=== PATIENT | male | born 1980 | race American Indian/Alaskan Native ===

== ENCOUNTER 2017-07-17 00:09 | Emergency (ER) | payer MEDICAID, OTHER ==
[2017-07-17 01:07] VITALS: BP 128/90
[2017-07-17] MEDS ORDERED: PERCOCET 5/325 PO ONE (02:58)
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
--- NOTE | 2017-07-17 04:09 | XRay Report ---
FINAL REPORT EXAM: XR SPINE CERVICAL 2-3V HISTORY: NECK PAIN TECHNIQUE: Three views of the cervical spine were obtained. FINDINGS: There is multilevel disc degeneration in the cervical spine particular the C5-C6 level with endplate spurring. The alignment appears normal. There is straightening of the usual cervical lordosis secondary to patient positioning versus spasm. The soft tissues reveal a normal-appearing epiglottis and subglottic airway. Hypopharynx appears normal. There is no evidence of radiopaque foreign body. C1-C2 articulation appears intact IMPRESSION: Multilevel disc degeneration with spurring. No acute injury. Unremarkable soft tissues of the neck.
--- NOTE | 2017-07-17 04:10 | XRay Report ---
FINAL REPORT EXAM: XR G-TUBE STUDY HISTORY: ABD PAIN AROUND G TUBE TECHNIQUE: A preliminary AP radiograph was obtained of the abdomen. A 2nd film was obtained after injection of small amount of oral contrast through the G-tube. FINDINGS: The bowel gas pattern is unremarkable. Injection of contrast through the G-tube shows normal opacification of the stomach. There is no extravasation of contrast. The tube is in proper position in the body of the stomach. IMPRESSION: G-tube in proper position in the stomach. No extravasation of contrast.
== END 2017-07-17 05:18 | disposition home or self-care (01) ==
LOC: ED 00:09
DX: S16.1XXA Strain of muscle, fascia and tendon at neck level, initial encounter (principal); R10.32 Left lower quadrant pain; K21.9 Gastro-esophageal reflux disease without esophagitis; V49.49XA Driver injured in collision with other motor vehicles in traffic accident, initial encounter; Y93.89 Activity, other specified; Y92.89 Other specified places as the place of occurrence of the external cause; Y99.8 Other external cause status
CPT/HCPCS: 72040; 74000; 99284; Q9963

== ENCOUNTER 2017-11-11 03:06 | Emergency (ER) | payer MEDICAID ==
[2017-11-11 03:55] VITALS: BP 129/87
== END 2017-11-11 04:45 | disposition left against medical advice (07) ==
LOC: ED 03:06
DX: K94.29 Other complications of gastrostomy (principal); Z53.21 Procedure and treatment not carried out due to patient leaving prior to being seen by health care provider

== ENCOUNTER 2018-03-11 01:12 | Emergency (ER) | payer OTHER, MEDICAID ==
[2018-03-11 01:18] VITALS: BP 129/83
== END 2018-03-11 04:55 | disposition left against medical advice (07) ==
LOC: ED 01:12
DX: R10.9 Unspecified abdominal pain (principal); Z53.21 Procedure and treatment not carried out due to patient leaving prior to being seen by health care provider

== ENCOUNTER 2018-09-12 14:18 | Emergency (ER) | payer MEDICAID ==
[2018-09-12 15:14] LABS: Hematocrit 40.5 % (35.5-45.6); Hemoglobin 13.6 gm/dl (11.8-15.2); Mean Corpuscular HGB Conc 34 % (32-34); Mean Corpuscular Volume 92 fl (84-94); Platelet Count 184 K/mm3 (140-440); Red Blood Count 4.42 M/mm3 (3.65-5.03); Red Cell Distribution Width 14.9 % (13.2-15.2)
[2018-09-12 16:53] LABS: BUN/Creatinine Ratio TNR; Blood Urea Nitrogen TNR mg/dL (9-20)
[2018-09-12 16:55] LABS: Basophils % (Manual) 0 % (0.0-1.8); Eosinophils % (Manual) 0 % (0.0-4.3); Total Cells Counted 100
[2018-09-12 16:56] LABS: Anisocytosis 1+; Platelet Estimate Consistent w Auto
[2018-09-12 17:00] LABS: Calcium TNR mg/dL (8.4-10.2)
[2018-09-12 17:01] LABS: Alanine Aminotransferase TNR units/L (7-56); Albumin TNR g/dL (3.9-5); Hemolysis Index TNR
[2018-09-12 18:05] LABS: Alanine Aminotransferase 23 units/L (7-56); Albumin 3.7 g/dL (3.9-5); BUN/Creatinine Ratio 6; Blood Urea Nitrogen 9 mg/dL (9-20); Calcium 9.1 mg/dL (8.4-10.2); Hemolysis Index 23
--- NOTE | 2018-09-12 20:40 | Emergency Department Report ---
ED General Adult HPI - General Chief complaint: Weakness Stated complaint: PEG TUBE INFECTION/CHEST PAIN Time Seen by Provider: 09/12/18 20:20 Source: patient Mode of arrival: Ambulatory Limitations: No Limitations - History of Present Illness Initial comments: 37 year old male with a past medical history of AIDS, hepatitis C, oral and esophageal candidiasis, endocarditis, and PEG tube presents with possible complaints of possible PEG tube infection. For the last 3 days patient has had purulent and bloody drainage from PEG tube site with surrounding pain. Patient was a fever of 101 several days ago. Patient states he has had more diarrhea for the past week. Pt also has thrush which is worse than normal. Patient is known to have full-blown AIDS. He is currently under the care of infectious disease doctor Dr. Kwon. He has been off of antiretrovirals for several months due to polydrug resistance. Dr. Kwon is planning to restart a new regimen. Patient states he has a PEG tube to because he has history of recurrent esophageal strictures. Currently he is able to tolerate a pure diet by mouth and uses the PEg tube to administer his liquid medications. She also complains of some generalized chest pain. - Related Data Home Medications Medication Instructions Recorded Confirmed Last Taken Dolutegravir Sodium [Tivicay] 800 mg PO QDAY 05/22/16 07/02/16 07/02/16 Micafungin [Mycamine] 100 mg IV QDAY 05/22/16 07/02/16 07/02/16 Previous Rx's Medication Instructions Recorded Last Taken Type ALBUTEROL Inhaler (OR & NICU) 2 puff IH QID PRN #1 inhalation 05/22/16 Unknown Rx [ProAir HFA Inhaler] Ibuprofen [Motrin] 800 mg PO Q8HR PRN #30 tablet 07/17/17 Unknown Rx oxyCODONE /ACETAMINOPHEN [Percocet 1 tab PO Q6HR PRN #10 tablet 07/17/17 Unknown Rx 5/325] Itraconazole [Onmel] 200 mg PO QDAY #14 tab 09/13/18 Unknown Rx Sulfamethoxazole/Trimethoprim 1 each PO BID #20 tablet 09/13/18 Unknown Rx [Bactrim DS TAB] traMADol [Ultram 50 MG tab] 50 mg PO Q6HR PRN #20 tablet 09/13/18 Unknown Rx traZODone [Desyrel] 100 mg PO QHS #20 tablet 09/13/18 Unknown Rx Allergies Allergy/AdvReac Type Severity Reaction Status Date / Time latex Allergy Itching Verified 08/07/15 12:37 ED Review of Systems ROS: Stated complaint: PEG TUBE INFECTION/CHEST PAIN Other details as noted in HPI Comment: All other systems reviewed and negative ED Past Medical Hx - Past Medical History Hx Hypertension: No Hx CVA: No Hx Heart Attack/AMI: No Hx Congestive Heart Failure: No Hx Diabetes: No Hx Deep Vein Thrombosis: No Hx Pulmonary Embolism: No Hx GERD: Yes Hx Liver Disease: Yes (hepatitis C) 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 esophagitis. MRSA - Surgical History Hx Coronary Stent: No Hx Open Heart Surgery: No Hx Pacemaker: No Hx Internal Defibrillator: No Hx Cholecystectomy: No Hx Appendectomy: No Hx Breast Surgery: No Additional Surgical History: port to left chest- removed. pic line to left upper arm-removed. PEG tube placement - Social History Smoking Status: Current Every Day Smoker Substance Use Type: Marijuana - Medications Home Medications: Home Medications Medication Instructions Recorded Confirmed Last Taken Type ALBUTEROL Inhaler (OR & NICU) 2 puff IH QID PRN #1 inhalation 05/22/16 07/02/16 Unknown Rx [ProAir HFA Inhaler] Dolutegravir Sodium [Tivicay] 800 mg PO QDAY 05/22/16 07/02/16 07/02/16 History Micafungin [Mycamine] 100 mg IV QDAY 05/22/16 07/02/16 07/02/16 History Ibuprofen [Motrin] 800 mg PO Q8HR PRN #30 tablet 07/17/17 Unknown Rx oxyCODONE /ACETAMINOPHEN [Percocet 1 tab PO Q6HR PRN #10 tablet 07/17/17 Unknown Rx 5/325] Itraconazole [Onmel] 200 mg PO QDAY #14 tab 09/13/18 Unknown Rx Sulfamethoxazole/Trimethoprim 1 each PO BID #20 tablet 09/13/18 Unknown Rx [Bactrim DS TAB] traMADol [Ultram 50 MG tab] 50 mg PO Q6HR PRN #20 tablet 09/13/18 Unknown Rx traZODone [Desyrel] 100 mg PO QHS #20 tablet 09/13/18 Unknown Rx ED Physical Exam - General Limitations: No Limitations - Other Other exam information: General: No limitations, patient is alert in no acute distress Head exam: Atraumatic, normocephalic Eyes exam: Normal appearance, pupils equal reactive to light, extraocular movements intact ENT: White plaques to tongue and roof of mouth suggestive of candidiasis Neck exam: Normal inspection, full range of motion, no meningismus nontender Respiratory exam: Clear to auscultation bilateral, no wheezes, rales, crackles Cardiovascular: Normal rate and rhythn Abdomen: Soft, left upper quadrant headache with purulent drainage from stoma. Surrounding. Tenderness with mild erythema. Rest of abdomen is nontender without rebound or guarding Extremity: Full range of motion normal inspection no deformity Back: Normal Inspection, full range of motion, no tenderness Neurologic: Alert, oriented x3, cranial nerves intact, no motor or sensory deficit Psychiatric: normal affect, normal mood Skin: Warm, dry, intact ED Course Vital Signs 09/12/18 09/12/18 09/12/18 14:33 19:36 19:45 Temperature 98.5 F 99.6 F Pulse Rate 92 H 70 Respiratory 16 18 18 Rate Blood Pressure 117/89 Blood Pressure 129/89 [Left] O2 Sat by Pulse 98 100 100 Oximetry 09/12/18 22:00 Temperature Pulse Rate 60 Respiratory 16 Rate Blood Pressure Blood Pressure 119/73 [Left] O2 Sat by Pulse 100 Oximetry - Consultations Consultation #1: 09/12/18 20:[address] Duenas sheet. Recommend CT. Since patient is able to take liquids by mouth suggests that if tube is infected it may be removed and patient continue his meds orally. ED Medical Decision Making - Lab Data Result diagrams: 09/12/18 14:54 09/12/18 17:22 Lab Results 09/12/18 09/12/18 09/12/18 Range/Units 14:54 14:54 17:22 WBC 4.1 L (4.5-11.0) K/mm3 RBC 4.42 (3.65-5.03) M/mm3 Hgb 13.6 (11.8-15.2) gm/dl Hct 40.5 (35.5-45.6) % MCV 92 (84-94) fl MCH 31 (28-32) pg MCHC 34 (32-34) % RDW 14.9 (13.2-15.2) % Plt Count 184 (140-440) K/mm3 [place] % (Auto) Prototype Sewer Add Manual Diff Complete Total Counted 100 Seg Neuts % (Manual) 62.0 (40.0-70.0) % Band Neutrophils % 0 % Lymphocytes % (Manual) 24.0 (13.4-35.0) % Reactive Lymphs % (Man) 0 % Monocytes % (Manual) 14.0 H (0.0-7.3) % Eosinophils % (Manual) 0 (0.0-4.3) % Basophils % (Manual) 0 (0.0-1.8) % Metamyelocytes % 0 % Myelocytes % 0 % Promyelocytes % 0 % Blast Cells % 0 % Nucleated RBC % Not Reportable Seg Neutrophils # Man 2.5 (1.8-7.7) K/mm3 Band Neutrophils # 0.0 K/mm3 Lymphocytes # (Manual) 1.0 L (1.2-5.4) K/mm3 Abs React Lymphs (Man) 0.0 K/mm3 Monocytes # (Manual) 0.6 (0.0-0.8) K/mm3 Eosinophils # (Manual) 0.0 (0.0-0.4) K/mm3 Basophils # (Manual) 0.0 (0.0-0.1) K/mm3 Metamyelocytes # 0.0 K/mm3 Myelocytes # 0.0 K/mm3 Promyelocytes # 0.0 K/mm3 Blast Cells # 0.0 K/mm3 WBC Morphology Not Reportable Hypersegmented Neuts Not Reportable Hyposegmented Neuts Not Reportable Hypogranular Neuts Not Reportable Smudge Cells Not Reportable Toxic Granulation Not Reportable Toxic Vacuolation Not Reportable Dohle Bodies Not Reportable Pelger-Huet Anomaly Not Reportable Blossom Rods Not Reportable Platelet Estimate Consistent w auto Clumped Platelets Not Reportable Plt Clumps, EDTA Not Reportable Large Platelets Not Reportable Giant Platelets Not Reportable Platelet Satelliting Not Reportable Plt Morphology Comment Not Reportable RBC Morphology Not Reportable Dimorphic RBCs Not Reportable Polychromasia Not Reportable Hypochromasia Not Reportable Poikilocytosis Not Reportable Anisocytosis 1+ Microcytosis Not Reportable Macrocytosis Not Reportable Spherocytes Not Reportable Pappenheimer Bodies Not Reportable Sickle Cells Not Reportable Target Cells Not Reportable Tear Drop Cells Not Reportable Ovalocytes Not Reportable Helmet Cells Not Reportable [place] Bodies Not Reportable Reading Rings Not Reportable Amy Cells Not Reportable Bite Cells Not Reportable Crenated Cell Not Reportable Elliptocytes Few Acanthocytes (Spur) Not Reportable Rouleaux Not Reportable Hemoglobin C Crystals Not Reportable Schistocytes Not Reportable Malaria parasites Not Reportable Jeremiah Bodies Not Reportable Hem Pathologist Commnt No Sodium TNR 135 L Potassium TNR 3.6 Chloride TNR 99.1 Carbon Dioxide TNR 23 Anion Gap TNR 17 BUN TNR 9 Creatinine TNR 1.4 Estimated GFR TNR > 60 BUN/Creatinine Ratio TNR 6 Glucose TNR 89 Calcium TNR 9.1 Total Bilirubin TNR 0.60 AST TNR 28 ALT TNR 23 Alkaline Phosphatase TNR 118 Total Protein TNR 8.6 H Albumin TNR 3.7 L Albumin/Globulin Ratio TNR 0.8 - Radiology Data Radiology results: report reviewed FINAL REPORT EXAM: CT ABDOMEN PELVIS W CON HISTORY: purulent drainage from peg site, abd pain COMPARISON: None available. TECHNIQUE: Contiguous axial images were obtained. Additional sagittal and coronal reformatted images were obtained. Administration of IV contrast given per institution protocol. Images submitted for interpretation. 100 cc Omnipaque [id number]. FINDINGS: Lung bases are clear. Gastrostomy tube is in satisfactory position. No abscess or fluid collection identified along the margin the gastrostomy tube site. No significant subcutaneous fat stranding along the abdominal wall. At the superior margin right hepatic lobe, there is a hypervascular lesion measuring 1.8 x 1.5 centimeters in axial dimension. This may reflect a fascia filling hemangioma. Adenoma could have a similar appearance. No other focal hepatic lesion. Gallbladder is contracted. No calcified gallstones or biliary dilatation. Spleen, pancreas, adrenal glands are unremarkable. No solid renal lesion. No hydronephrosis. Prominent inferior right renal cyst measuring 3.1 x 3.2 centimeters. Aorta and IVC normal in caliber. Urinary bladder and prostate gland are grossly unremarkable. Majority of bowel loops are relatively decompressed. No focal inflammatory changes the bowel or bowel obstruction. Moderate stool in the colon. The appendix is normal in caliber. Appendix is gas-filled measuring 5 millimeters in diameter. Bony pelvis and lumbar spine are grossly intact. [id number] degenerative changes of the lumbar spine. IMPRESSION: Gastrostomy tube in satisfactory position. No evidence of abscess or soft tissue inflammation at the margin the gastrostomy tube. Indeterminate hypervascular lesion at the hepatic dome measuring 1.8 x 1.5 ce ntimeters. This may reflect a flash filling hemangioma. Adenoma cavus similar appearance. Three pha se liver CT suggested on a nonemergent outpatient basis for further evaluation. No other acute findings. - Medical Decision Making Case is rediscussed with Dr. Curtis after the results of CT report. Ther isnt any abscess or CT findings of infection then PEG tube may remain in place. I will start patient on antibiotics for a couple days as well as she may for thru sh. Patient states he is resistant to Diflucan and nystatin and is typically itraconazoel. Follow-up with his infectious disease doctor will be encouraged. - Differential Diagnosis PEG tube infection, abscess, pneumonia Critical Care Time: No Critical care attestation.: If time is entered above; I have spent that time in minutes in the direct care of this critically ill patient, excluding procedure time. ED Disposition Clinical Impression: Oral thrush, AIDS, Pain around PEG tube site Disposition: [id number] TO HOME OR SELFCARE Is pt being admited?: No Does the pt Need Aspirin: No Condition: Stable Instructions: Oral Candidiasis (ED), How to Use and Care for Your PEG Tube (ED) Additional Instructions: Your thrush is related to your poor immune system. Is very important that you follow up with your infectious disease doctor for further HIV/AIDS treatment. Take the medications as prescribed. Return if symptoms worsen as indicated by your discharge instructions. Prescriptions: Itraconazole [Onmel] 200 mg PO QDAY #14 tab Sulfamethoxazole/Trimethoprim [Bactrim DS TAB] 1 each PO BID #20 tablet traMADol [Ultram 50 MG tab] 50 mg PO Q6HR PRN #20 tablet PRN Reason: Pain traZODone [Desyrel] 100 mg PO QHS #20 tablet Referrals: FRANCIS PAYNE MD [Primary Care Provider] - 3-5 Days PANDA KWON MD [Staff Physician] - 3-5 Days Time of Disposition: 02:25
[2018-09-12] MEDS ORDERED: ZOFRAN IV ONE (20:43)
[2018-09-12] MEDS ORDERED: MORPHINE IV ONE (20:43)
[2018-09-12] MEDS ORDERED: VANCOMYCIN 1,250 MG in NACL 0.9% 500 ML 500 ML IV ONE (20:43)
--- NOTE | 2018-09-12 21:46 | XRay Report ---
FINAL REPORT EXAM: XRAY CHEST 2 VIEWS HISTORY: weakness TECHNIQUE: Two view chest PA and lateral PRIORS: None. FINDINGS: Cardiac and mediastinal contours are unremarkable. No focal pulmonary infiltrate is identified. No pleural fluid collection seen. Pulmonary vasculature is unremarkable. IMPRESSION: Negative two-view chest
[2018-09-12] MEDS ORDERED: VANCOMYCIN 1,250 MG in NACL 0.9% 250ML 250 ML IV ONE (22:00)
[2018-09-12 22:49] VITALS: BP 119/73
--- NOTE | 2018-09-13 01:56 | Cat Scan Report ---
FINAL REPORT EXAM: CT ABDOMEN PELVIS W CON HISTORY: purulent drainage from peg site, abd pain COMPARISON: None available. TECHNIQUE: Contiguous axial images were obtained. Additional sagittal and coronal reformatted images were obtained. Administration of IV contrast given per institution protocol. Images submitted for in terpretation. 100 cc Omnipaque [id number]. FINDINGS: Lung bases are clear. Gastrostomy tube is in satisfactory position. No abscess or fluid collection id entified along the margin the gastrostomy tube site. No significant subcutaneous fat stranding along the abdominal wall. At the superior margin right hepatic lobe, there is a hypervascular lesion measuring 1.8 x 1.5 centim eters in axial dimension. This may reflect a fascia filling hemangioma. Adenoma could have a similar appearance. No other focal hepatic lesion. Gallbladder is contracted. No calcified gallstones or bili magdiel dilatation. Spleen, pancreas, adrenal glands are unremarkable. No solid renal lesion. No hydronep hrosis. Prominent inferior right renal cyst measuring 3.1 x 3.2 centimeters. Aorta and IVC normal in caliber. Urinary bladder and prostate gland are grossly unremarkable. Majority of bowel loops are relatively d ecompressed. No focal inflammatory changes the bowel or bowel obstruction. Moderate stool in the colo n. The appendix is normal in caliber. Appendix is gas-filled measuring 5 millimeters in diameter. Bony pelvis and lumbar spine are grossly intact. [id number] degenerative changes of the lumbar spine. IMPRESSION: Gastrostomy tube in satisfactory position. No evidence of abscess or soft tissue inflammation at the margin the gastrostomy tube. Indeterminate hypervascular lesion at the hepatic dome measuring 1.8 x 1.5 centimeters. This may refl ect a flash filling hemangioma. Adenoma cavus similar appearance. Three phase liver CT suggested on a nonemergent outpatient basis for further evaluation. No other acute findings.
== END 2018-09-13 02:55 | disposition home or self-care (01) ==
LOC: ED 14:18
DX: T85.9XXA Unspecified complication of internal prosthetic device, implant and graft, initial encounter (principal); B37.0 Candidal stomatitis; R07.89 Other chest pain; K21.9 Gastro-esophageal reflux disease without esophagitis; F17.200 Nicotine dependence, unspecified, uncomplicated; F12.10 Cannabis abuse, uncomplicated; Z79.899 Other long term (current) drug therapy; Z91.040 Latex allergy status; Y92.89 Other specified places as the place of occurrence of the external cause
CPT/HCPCS: 36415; 71046; 74177; 80053; 85007; 85025; 96365; 96366; 96375; 99284; J2270; J2405; J3370; J7050; Q9967; J7040

== ENCOUNTER 2019-01-18 20:41 | Emergency (ER) | payer MEDICAID | END 2019-01-18 20:58 | disposition left against medical advice (07) | LOC: ED 20:41 | DX: R07.89 Other chest pain (principal); Z53.21 Procedure and treatment not carried out due to patient leaving prior to being seen by health care provider ==

== ENCOUNTER 2019-01-19 22:08 | Emergency (ER) | payer MEDICAID | END 2019-01-19 23:10 | disposition left against medical advice (07) | LOC: ED 22:08 | DX: R07.0 Pain in throat (principal); Z53.21 Procedure and treatment not carried out due to patient leaving prior to being seen by health care provider ==

== ENCOUNTER 2019-09-19 14:36 | Emergency (ER) | payer MEDICAID ==
--- NOTE | 2019-09-19 16:51 | Event Note ---
ED Screening Note Date of service: 09/19/19 Time: 16:47 ED Screening Note: 38 y/o male with AIDS comes in for back pain and sore throat due to thrush. This initial assessment/diagnostic orders/clinical plan/treatment(s) is/are subject to change based on patients health status, clinical progression and re- assessment by fellow clinical providers in the ED. Further treatment and workup at subsequent clinical providers discretion. Patient/guardian urged not to elope from the ED as their condition may be serious if not clinically assessed and managed. Initial orders include:
[2019-09-19 17:12] LABS: Basophils % (Auto) 0.5 % (0.0-1.8); Eosinophils # (Auto) 0.1 K/mm3 (0.0-0.4); Eosinophils % (Auto) 1.7 % (0.0-4.3); Hematocrit 37.3 % (35.5-45.6); Hemoglobin 12.6 gm/dl (11.8-15.2); Lymphocytes # (Auto) 1.5 K/mm3 (1.2-5.4); Lymphocytes % (Auto) 44.3 % (13.4-35.0); Mean Corpuscular HGB Conc 34 % (32-34); Mean Corpuscular Volume 90 fl (84-94); Monocytes # (Auto) 0.4 K/mm3 (0.0-0.8); Monocytes % (Auto) 12.6 % (0.0-7.3); Platelet Count 205 K/mm3 (140-440); Red Blood Count 4.12 M/mm3 (3.65-5.03); Red Cell Distribution Width 17.7 % (13.2-15.2)
--- NOTE | 2019-09-19 17:18 | XRay Report ---
Lumbar spine-3 views INDICATION: back pain s/p fall. COMPARISON: None. IMPRESSION: Normal alignment. Mild multilevel discogenic DJD. No acute osseous or soft tissue abno rmality. Signer Name: Raleigh Preciado MD Signed: 09/19/2019 5:13 PM Workstation Name: [id number]
[2019-09-19 17:37] LABS: Albumin 3.7 g/dL (3.9-5); BUN/Creatinine Ratio 9; Blood Urea Nitrogen 12 mg/dL (9-20); Calcium 8.8 mg/dL (8.4-10.2); Hemolysis Index 139
[2019-09-19 17:48] LABS: Alanine Aminotransferase 20 units/L (7-56)
[2019-09-19] MEDS ORDERED: ONDANSETRON 4 MG/2 ML INJ IV ONE (19:17)
[2019-09-19] MEDS ORDERED: SODIUM CHLORIDE 0.9% 1000 ML 1,000 ML IV ONE (19:17)
[2019-09-19] MEDS ORDERED: MORPHINE 4 MG/1 ML INJ IV ONE (19:17)
[2019-09-19] MEDS ORDERED: FLUCONAZOLE 400 MG 200 ML IV ONE (19:30)
--- NOTE | 2019-09-19 21:41 | Emergency Department Report ---
ED ENT HPI - General Chief complaint: Sore Throat Stated complaint: THROAT AND BACK PAIN Time Seen by Provider: 09/19/19 16:46 Source: patient Mode of arrival: Ambulatory Limitations: No Limitations - History of Present Illness Initial comments: Mr. Bernstein is s 38 y/o aam with AIDs , recurrent oral thrush, states followed by Dr. Kwon and [facility], states he is out of antifungal, and oral thrush has worsened, with burning and aching 5/10 for past 3 days. pt is tolerating po intake, There is no fever or chills, no n/v. Symptoms are exacerbated by swallowing. There is no throat swelling , stridor, or wheezing, no facial swelling or deformity. Onset/Timin -: week(s) Location: throat Severity: moderate Severity scale (0 -10): 4 Quality: aching Consistency: constant Improves with: none Worsens with: swallowing Associated Symptoms: pain with swallowing, sore throat. denies: fever, cough, gum swelling, toothache, discharge from ear, rhinorrhea - Related Data Home Medications Medication Instructions Recorded Confirmed Last Taken Dolutegravir Sodium [Tivicay] 800 mg PO QDAY 05/22/16 07/02/16 07/02/16 Micafungin [Mycamine] 100 mg IV QDAY 05/22/16 07/02/16 07/02/16 Previous Rx's Medication Instructions Recorded Last Taken Type Albuterol INH(or & Nicu Only) 2 puff IH QID PRN #1 inhalation 05/22/16 Unknown Rx [ProAir HFA Inhaler] Ibuprofen [Motrin] 800 mg PO Q8HR PRN #30 tablet 07/17/17 Unknown Rx oxyCODONE /ACETAMINOPHEN [Percocet 1 tab PO Q6HR PRN #10 tablet 07/17/17 Unknown Rx 5/325] Sulfamethoxazole/Trimethoprim 1 each PO BID #20 tablet 09/13/18 Unknown Rx [Bactrim DS TAB] traMADoL [Ultram 50 MG tab] 50 mg PO Q6HR PRN #20 tablet 09/13/18 Unknown Rx traZODone [Desyrel] 100 mg PO QHS #20 tablet 09/13/18 Unknown Rx HYDROcodone/APAP 5-325 [[place] 1 each PO Q6HR PRN #12 tablet 02/11/20 Unknown Rx 5-325 mg TAB] Itraconazole [Onmel] 200 mg PO QDAY #14 tab 09/19/19 Unknown Rx Nystas/Diphen/Xyl Visc/Mylanta 15 ml MM QID #480 ml 09/19/19 Unknown Rx [Magic Mouthwash] Allergies Allergy/AdvReac Type Severity Reaction Status Date / Time latex Allergy Itching Verified 08/07/15 12:37 ED Dental HPI - General Chief complaint: Sore Throat Stated complaint: THROAT AND BACK PAIN Time Seen by Provider: 09/19/19 16:46 Source: patient Mode of arrival: Ambulatory Limitations: No Limitations - Related Data Home Medications Medication Instructions Recorded Confirmed Last Taken Dolutegravir Sodium [Tivicay] 800 mg PO QDAY 05/22/16 07/02/16 07/02/16 Micafungin [Mycamine] 100 mg IV QDAY 05/22/16 07/02/16 07/02/16 Previous Rx's Medication Instructions Recorded Last Taken Type Albuterol INH(or & Nicu Only) 2 puff IH QID PRN #1 inhalation 05/22/16 Unknown Rx [ProAir HFA Inhaler] Ibuprofen [Motrin] 800 mg PO Q8HR PRN #30 tablet 07/17/17 Unknown Rx oxyCODONE /ACETAMINOPHEN [Percocet 1 tab PO Q6HR PRN #10 tablet 07/17/17 Unknown Rx 5/325] Sulfamethoxazole/Trimethoprim 1 each PO BID #20 tablet 09/13/18 Unknown Rx [Bactrim DS TAB] traMADoL [Ultram 50 MG tab] 50 mg PO Q6HR PRN #20 tablet 09/13/18 Unknown Rx traZODone [Desyrel] 100 mg PO QHS #20 tablet 09/13/18 Unknown Rx HYDROcodone/APAP 5-325 [[place] 1 each PO Q6HR PRN #12 tablet 09/19/19 Unknown Rx 5-325 mg TAB] Itraconazole [Onmel] 200 mg PO QDAY #14 tab 09/19/19 Unknown Rx Nystas/Diphen/Xyl Visc/Mylanta 15 ml MM QID #480 ml 09/19/19 Unknown Rx [Magic Mouthwash] Allergies Allergy/AdvReac Type Severity Reaction Status Date / Time latex Allergy Itching Verified 08/07/15 12:37 ED Review of Systems ROS: Stated complaint: THROAT AND BACK PAIN Other details as noted in HPI Constitutional: denies: chills, fever Eyes: denies: eye pain, eye discharge, vision change ENT: throat pain, other (thrush oral throat ) Respiratory: denies: cough, shortness of breath, wheezing Cardiovascular: denies: chest pain, palpitations Endocrine: no symptoms reported Gastrointestinal: denies: abdominal pain, nausea, vomiting, diarrhea Genitourinary: denies: urgency, dysuria Musculoskeletal: denies: back pain, joint swelling, arthralgia Skin: denies: rash, lesions Neurological: denies: headache, weakness, paresthesias Psychiatric: denies: anxiety, depression Hematological/Lymphatic: denies: easy bleeding, easy bruising ED Past Medical Hx - Past Medical History Hx Hypertension: No Hx CVA: No Hx Heart Attack/AMI: No Hx Congestive Heart Failure: No Hx Diabetes: No Hx Deep Vein Thrombosis: No Hx Pulmonary Embolism: No Hx GERD: Yes Hx Liver Disease: Yes (hepatitis C) 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 esophagitis. MRSA - Surgical History Hx Coronary Stent: No Hx Open Heart Surgery: No Hx Pacemaker: No Hx Internal Defibrillator: No Hx Cholecystectomy: No Hx Appendectomy: No Hx Breast Surgery: No Additional Surgical History: port to left chest- removed. pic line to left upper arm-removed. PEG tube placement - Social History Smoking Status: Never Smoker Substance Use Type: None - Medications Home Medications: Home Medications Medication Instructions Recorded Confirmed Last Taken Type Albuterol INH(or & Nicu Only) 2 puff IH QID PRN #1 inhalation 05/22/16 07/02/16 Unknown Rx [ProAir HFA Inhaler] Dolutegravir Sodium [Tivicay] 800 mg PO QDAY 05/22/16 07/02/16 07/02/16 History Micafungin [Mycamine] 100 mg IV QDAY 05/22/16 07/02/16 07/02/16 History Ibuprofen [Motrin] 800 mg PO Q8HR PRN #30 tablet 07/17/17 Unknown Rx oxyCODONE /ACETAMINOPHEN [Percocet 1 tab PO Q6HR PRN #10 tablet 07/17/17 Unknown Rx 5/325] Sulfamethoxazole/Trimethoprim 1 each PO BID #20 tablet 09/13/18 Unknown Rx [Bactrim DS TAB] traMADoL [Ultram 50 MG tab] 50 mg PO Q6HR PRN #20 tablet 09/13/18 Unknown Rx traZODone [Desyrel] 100 mg PO QHS #20 tablet 09/13/18 Unknown Rx HYDROcodone/APAP 5-325 [[place] 1 each PO Q6HR PRN #12 tablet 09/19/19 Unknown Rx 5-325 mg TAB] Itraconazole [Onmel] 200 mg PO QDAY #14 tab 09/19/19 Unknown Rx Nystas/Diphen/Xyl Visc/Mylanta 15 ml MM QID #480 ml 09/19/19 Unknown Rx [Magic Mouthwash] ED Physical Exam - General Limitations: No Limitations General appearance: alert, in no apparent distress - Head Head exam: Present: atraumatic, normocephalic - Eye Eye exam: Present: normal appearance, PERRL, EOMI Pupils: Present: normal accommodation - ENT ENT exam: Present: mucous membranes moist, TM's normal bilaterally, normal external ear exam - Expanded ENT Exam Expanded Ear exam: Present: normal external inspection Mouth exam: Absent: trismus Throat exam: Positive: other (yeast /thrush ). Negative: tonsillar erythema, tonsillomegaly - Neck Neck exam: Present: normal inspection, full ROM. Absent: tenderness, lymphadenopathy - Respiratory Respiratory exam: Present: normal lung sounds bilaterally. Absent: respiratory distress, wheezes, stridor, chest wall tenderness - Cardiovascular Cardiovascular Exam: Present: regular rate, normal rhythm, normal heart sounds. Absent: systolic murmur, diastolic murmur, rubs, gallop - GI/Abdominal GI/Abdominal exam: Present: soft, normal bowel sounds. Absent: tenderness, bruit, hernia - Rectal Rectal exam: Present: deferred - Extremities Exam Extremities exam: Present: normal inspection, full ROM. Absent: tenderness - Back Exam Back exam: Present: normal inspection, full ROM. Absent: tenderness - Neurological Exam Neurological exam: Present: alert, oriented X3, CN II-XII intact, normal gait - Psychiatric Psychiatric exam: Present: normal affect, normal mood - Skin Skin exam: Present: warm, dry, intact, normal color. Absent: rash ED Course Vital Signs 09/19/19 14:41 Temperature 99.2 F Pulse Rate 99 H Respiratory 18 Rate Blood Pressure 126/92 O2 Sat by Pulse 100 Oximetry ED Medical Decision Making - Lab Data Result diagrams: 09/19/19 16:57 09/19/19 16:57 - Medical Decision Making Symptoms improved, plan refill antifungal, follow up with [facility] tomorrow, Dr Kwon and scheduled, pt verbalized agreement and understanding of same, pt is currently a/o x 3, ambulatory with steady gait, and tolerating po at this time. Critical care attestation.: If time is entered above; I have spent that time in minutes in the direct care of this critically ill patient, excluding procedure time. ED Disposition Clinical Impression: Thrush of mouth and esophagus Disposition: - TO HOME OR SELFCARE Is pt being admited?: No Does the pt Need Aspirin: No Condition: Stable Instructions: Oral Candidiasis (ED) Additional Instructions: follow up with [facility] as scheduled, up appointment tomorrow. Prescriptions: Nystas/Diphen/Xyl Visc/Mylanta [Magic Mouthwash] 15 ml MM QID #480 ml HYDROcodone/APAP 5-325 [[place] 5-325 mg TAB] 1 each PO Q6HR PRN #12 tablet PRN Reason: Pain Itraconazole [Onmel] 200 mg PO QDAY #14 tab Referrals: [facility] [Other] - 3-5 Days PANDA KWON MD [Staff Physician] - 3-5 Days Time of Disposition: 21:54
[2019-09-19 22:29] VITALS: BP 137/81
== END 2019-09-19 22:29 | disposition home or self-care (01) ==
LOC: ED 14:36
DX: B37.0 Candidal stomatitis (principal); B37.81 Candidal esophagitis; K21.9 Gastro-esophageal reflux disease without esophagitis; Z21 Asymptomatic human immunodeficiency virus [HIV] infection status; Z79.899 Other long term (current) drug therapy; Z91.040 Latex allergy status
CPT/HCPCS: 36415; 72100; 80053; 85025; 96365; 96366; 96375; 99283; J1450; J2270; J2405; J7030

== ENCOUNTER 2020-11-12 15:22 | Emergency (ER) | payer MEDICAID ==
[2020-11-12 15:45] VITALS: BP 125/74
== END 2020-11-12 19:00 | disposition left against medical advice (07) ==
LOC: ED 15:22
DX: R21 Rash and other nonspecific skin eruption (principal); Z53.21 Procedure and treatment not carried out due to patient leaving prior to being seen by health care provider

== ENCOUNTER 2020-11-16 13:27 | Emergency (ER) | payer MEDICAID ==
--- NOTE | 2020-11-16 14:44 | Event Note ---
ED Screening Note Date of service: 11/16/20 Time: 14:43 ED Screening Note: This very pleasant 40-year-old male who presents to the emergency department chief complaint of hematemesis and melena over the past 2 days. Patient also reports he has had a cough and congestion during this time. He has a past medical history of AIDS and is unsure of his last CD4 count or viral load. He is currently taking Biktarvy but was resistant to multiple other antiretroviral medication. This initial assessment/diagnostic orders/clinical plan/treatment(s) is/are subject to change based on patients health status, clinical progression and re- assessment by fellow clinical providers in the ED. Further treatment and workup at subsequent clinical providers discretion. Patient/guardian urged not to elope from the ED as their condition may be serious if not clinically assessed and managed. Initial orders include: CBC, CMP, urinalysis, lipase, type and screen, chest x- ray
[2020-11-16 15:15] LABS: Basophils % (Auto) 0.6 % (0.0-1.8); Eosinophils # (Auto) 0.1 K/mm3 (0.0-0.4); Eosinophils % (Auto) 2.4 % (0.0-4.3); Hematocrit 42.7 % (35.5-45.6); Hemoglobin 14.1 gm/dl (11.8-15.2); Lymphocytes # (Auto) 1.4 K/mm3 (1.2-5.4); Lymphocytes % (Auto) 27.1 % (13.4-35.0); Mean Corpuscular HGB Conc 33 % (32-34); Mean Corpuscular Volume 96 fl (84-94); Monocytes # (Auto) 0.7 K/mm3 (0.0-0.8); Monocytes % (Auto) 14.3 % (0.0-7.3); Platelet Count 188 K/mm3 (140-440); Red Blood Count 4.45 M/mm3 (3.65-5.03); Red Cell Distribution Width 18.6 % (13.2-15.2)
--- NOTE | 2020-11-16 15:15 | XRay Report ---
CHEST 2 VIEWS INDICATION / CLINICAL INFORMATION: GI Bleed. COMPARISON: Chest 2 views from 09/12/2018. FINDINGS: SUPPORT DEVICES: None. HEART / MEDIASTINUM: No significant abnormality. LUNGS / PLEURA: Clear lungs. No significant pleural effusion. No pneumothorax. ADDITIONAL FINDINGS: No significant additional findings. IMPRESSION: 1. No acute abnormality of the chest. Signer Name: Jose Fitzgerald MD Signed: 11/16/2020 3:11 PM Workstation Name: [id number]
[2020-11-16 15:27] LABS: INR 0.98 (0.87-1.13); Partial Thromboplastin Time 27.5 Sec. (24.2-36.6)
[2020-11-16 15:44] LABS: Alanine Aminotransferase 60 units/L (7-56); Albumin 4.3 g/dL (3.9-5); BUN/Creatinine Ratio 8; Blood Urea Nitrogen 14 mg/dL (9-20); Calcium 8.9 mg/dL (8.4-10.2); Hemolysis Index 13
[2020-11-16 15:47] LABS: Bilirubin,Direct < 0.2 mg/dL (0-0.2)
[2020-11-16] MEDS ORDERED: PANTOPRAZOLE 40 MG INJ IV ONE (17:06)
[2020-11-16] MEDS ORDERED: ONDANSETRON 4 MG/2 ML INJ IV ONE (17:06)
[2020-11-16] MEDS ORDERED: SODIUM CHLORIDE 0.9% 1000 ML 1,000 ML IV ONE (17:06)
--- NOTE | 2020-11-16 17:26 | Emergency Department Report ---
HPI - General Chief Complaint: GI Bleed Time Seen by Provider: 11/16/20 17:01 - HPI HPI: This is a 40-year-old -[place] male presents to the emergency department with a complaint of a a 3 to 4-day history of abdominal pain with some episodes of rectal bleeding, and today the patient had some episodes of nausea with vomiting with some blood-tinged emesis. He says that the rectal bleeding occurs only with bowel movements. At first he says that it was a pinkish color but more recently it is darker red with some clots. He has not taken anything for his symptoms prior to presentation. He has a past medical history of GERD, HIV, hepatitis C, previous PE/DVT, previous endocarditis, esophagitis. The patient also previously had a PEG tube secondary to his esophageal issues. He denies any fever, diarrhea, constipation, dysuria, penile discharge, chest pain or shortness of breath. No recent travel or sick contacts at home. 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 esophagitis. MRSA - Surgical History Past Surgical History?: Yes Hx Coronary Stent: No Hx Open Heart Surgery: No Hx Pacemaker: No Hx Internal Defibrillator: No Hx Cholecystectomy: No Hx Appendectomy: No Hx Breast Surgery: No Additional Surgical History: port to left chest- removed. pic line to left upper arm-removed. PEG tube placement- removed - Social History Smoking Status: Current Every Day Smoker Substance Use Type: Prescribed - Medications Home Medications: Home Medications Medication Instructions Recorded Confirmed Last Taken Type Albuterol Mdi (or & Nicu Only) 2 puff IH QID PRN #1 inhalation 05/22/16 07/02/16 Unknown Rx [ProAir HFA Inhaler] Dolutegravir Sodium [Tivicay] 800 mg PO QDAY 05/22/16 07/02/16 07/02/16 History Micafungin [Mycamine] 100 mg IV QDAY 05/22/16 07/02/16 07/02/16 History Ibuprofen [Motrin] 800 mg PO Q8HR PRN #30 tablet 07/17/17 Unknown Rx oxyCODONE /ACETAMINOPHEN [Percocet 1 tab PO Q6HR PRN #10 tablet 07/17/17 Unknown Rx 5/325] Sulfamethoxazole/Trimethoprim 1 each PO BID #20 tablet 09/13/18 Unknown Rx [Bactrim DS TAB] traZODone [Desyrel] 100 mg PO QHS #20 tablet 09/13/18 Unknown Rx HYDROcodone/APAP 5-325 [[place] 1 each PO Q6HR PRN #12 tablet 09/19/19 Unknown Rx 5-325 mg TAB] Itraconazole [Onmel] 200 mg PO QDAY #14 tab 09/19/19 Unknown Rx Nystas/Diphen/Xyl Visc/Mylanta 15 ml MM QID #480 ml 09/19/19 Unknown Rx [Magic Mouthwash] Omeprazole 20 mg PO QDAY #20 capsule.dr 11/16/20 Unknown Rx Ondansetron [Zofran Odt] 4 mg PO Q8HR PRN #12 tab.rapdis 11/16/20 Unknown Rx traMADoL [Ultram 50 MG tab] 50 mg PO Q6HR PRN #10 tablet 11/16/20 Unknown Rx ED Review of Systems ROS: Stated complaint: BLOOD IN STOOL Other details as noted in HPI Comment: All other systems reviewed and negative Constitutional: denies: chills, fever Eyes: denies: eye pain, vision change ENT: denies: ear pain, throat pain Respiratory: denies: cough, shortness of breath Cardiovascular: denies: chest pain, palpitations Gastrointestinal: abdominal pain, nausea, vomiting, hematemesis, hematochezia Genitourinary: denies: dysuria, discharge Musculoskeletal: denies: back pain, arthralgia Skin: denies: rash, lesions Neurological: denies: headache, weakness Physical Exam - Physical Exam Vital Signs: Vital Signs 11/16/20 14:44 Temperature 98.6 F Pulse Rate 80 Respiratory 20 Rate Blood Pressure 139/90 O2 Sat by Pulse 100 Oximetry Physical Exam: GENERAL: The patient is well-developed well-nourished. HENT: Normocephalic. Atraumatic. Patient has moist mucous membranes. EYES: Extraocular motions are intact. NECK: Supple. Trachea is midline. CHEST/LUNGS: Clear to auscultation. There is no respiratory distress noted. HEART/CARDIOVASCULAR: Regular. There is no tachycardia. There is no murmur. ABDOMEN: Abdomen is soft. Upper abdominal tenderness to palpation. No guarding. Patient has normal bowel sounds. There is no abdominal distention. SKIN: Skin is warm and dry. NEURO: The patient is awake, alert, and oriented. The patient is cooperative. The patient has no focal neurologic deficits. Normal speech. MUSCULOSKELETAL: There is no tenderness or deformity. There is no limitation range of motion. RECTAL: There is some nonthrombosed hemorrhoid seen. ED Course Vital Signs 11/16/20 14:44 Temperature 98.6 F Pulse Rate 80 Respiratory 20 Rate Blood Pressure 139/90 O2 Sat by Pulse 100 Oximetry ED Medical Decision Making - Lab Data Result diagrams: 11/16/20 14:58 11/16/20 14:58 Lab Results 11/16/20 11/16/20 11/16/20 Range/Units 14:58 14:58 14:58 WBC 5.1 (4.5-11.0) K/mm3 RBC 4.45 (3.65-5.03) M/mm3 Hgb 14.1 (11.8-15.2) gm/dl Hct 42.7 (35.5-45.6) % MCV 96 H (84-94) fl MCH 32 (28-32) pg MCHC 33 (32-34) % RDW 18.6 H (13.2-15.2) % Plt Count 188 (140-440) K/mm3 Lymph % (Auto) 27.1 (13.4-35.0) % [place] % (Auto) 14.3 H (0.0-7.3) % Eos % (Auto) 2.4 (0.0-4.3) % Baso % (Auto) 0.6 (0.0-1.8) % Lymph # (Auto) 1.4 (1.2-5.4) K/mm3 [place] # (Auto) 0.7 (0.0-0.8) K/mm3 Eos # (Auto) 0.1 (0.0-0.4) K/mm3 Baso # (Auto) 0.0 (0.0-0.1) K/mm3 Seg Neutrophils % 55.6 (40.0-70.0) % Seg Neutrophils # 2.8 (1.8-7.7) K/mm3 PT 12.9 (12.2-14.9) Sec. INR 0.98 (0.87-1.13) APTT 27.5 (24.2-36.6) Sec. Sodium 139 (137-145) mmol/L Potassium 4.5 (3.6-5.0) mmol/L Chloride 105.7 (98-107) mmol/L Carbon Dioxide 20 L (22-30) mmol/L Anion Gap 18 mmol/L BUN 14 (9-20) mg/dL Creatinine 1.7 H (0.8-1.3) mg/dL Estimated GFR 55 ml/min BUN/Creatinine Ratio 8 % Glucose 62 L (75-100) mg/dL Calcium 8.9 (8.4-10.2) mg/dL Total Bilirubin 0.40 (0.1-1.2) mg/dL Direct Bilirubin < 0.2 (0-0.2) mg/dL Indirect Bilirubin 0.2 mg/dL AST 56 H (5-40) units/L ALT 60 H (7-56) units/L Alkaline Phosphatase 168 H (35-129) units/L Total Protein 8.6 H (6.3-8.2) g/dL Albumin 4.3 (3.9-5) g/dL Albumin/Globulin Ratio 1.0 % Lipase 43 (13-60) units/L Blood Type Antibody Screen 11/16/20 Range/Units 15:00 WBC (4.5-11.0) K/mm3 RBC (3.65-5.03) M/mm3 Hgb (11.8-15.2) gm/dl Hct (35.5-45.6) % MCV (84-94) fl MCH (28-32) pg MCHC (32-34) % RDW (13.2-15.2) % Plt Count (140-440) K/mm3 Lymph % (Auto) (13.4-35.0) % [place] % (Auto) (0.0-7.3) % Eos % (Auto) (0.0-4.3) % Baso % (Auto) (0.0-1.8) % Lymph # (Auto) (1.2-5.4) K/mm3 [place] # (Auto) (0.0-0.8) K/mm3 Eos # (Auto) (0.0-0.4) K/mm3 Baso # (Auto) (0.0-0.1) K/mm3 Seg Neutrophils % (40.0-70.0) % Seg Neutrophils # (1.8-7.7) K/mm3 PT (12.2-14.9) Sec. INR (0.87-1.13) APTT (24.2-36.6) Sec. Sodium (137-145) mmol/L Potassium (3.6-5.0) mmol/L Chloride (98-107) mmol/L Carbon Dioxide (22-30) mmol/L Anion Gap mmol/L BUN (9-20) mg/dL Creatinine (0.8-1.3) mg/dL Estimated GFR ml/min BUN/Creatinine Ratio % Glucose (75-100) mg/dL Calcium (8.4-10.2) mg/dL Total Bilirubin (0.1-1.2) mg/dL Direct Bilirubin (0-0.2) mg/dL Indirect Bilirubin mg/dL AST (5-40) units/L ALT (7-56) units/L Alkaline Phosphatase (35-129) units/L Total Protein (6.3-8.2) g/dL Albumin (3.9-5) g/dL Albumin/Globulin Ratio % Lipase (13-60) units/L Blood Type O POSITIVE Antibody Screen Negative - Radiology Data Radiology results: report reviewed, image reviewed interpreted by me: Chest x-ray does not show any acute process. There are no pleural effusions, obvious pneumonia and there is no pneumothorax. No significant cardiomegaly. CT ABDOMEN AND PELVIS WITH CONTRAST INDICATION / CLINICAL INFORMATION: Unspecified abdominal pain, GI bleed. TECHNIQUE: Axial CT images were obtained through the abdomen and pelvis after 100 cc Omnipaque [address] scans at this location are performed using CT dose reduction for ALARA by means of automated exposure control. COMPARISON: CT abdomen and pelvis with contrast from 09/13/2018. FINDINGS: LOWER CHEST: No significant abnormality. LIVER: No significant abnormality. GALLBLADDER: Contracted and not well evaluated. BILE DUCTS: No significant abnormality. PANCREAS: No significant abnormality. SPLEEN: No significant abnormality. ADRENALS: No significant abnormality. RIGHT KIDNEY / URETER: A simple right lower renal pole cyst measures up to 3.8 cm. No other significant abnormality. LEFT KIDNEY / URETER: No significant abnormality. S TOMACH / SMALL BOWEL: No significant abnormality. COLON: No significant abnormality. APPENDIX: No significant abnormality. PERITONEUM: No free fluid. No free air. No fluid collection. LYMPH NODES: No significant adenopathy. AORTA / ARTERIES: The aorta is normal in caliber with mild aortoiliac atherosclerosis. IVC / VEINS: No significant abnormality. URINARY BLADDER: No significant abnormality. REPRODUCTIVE ORGANS: No significant abnormality. ADDITIONAL FINDINGS: None. SKELETAL SYSTEM: No significant abnormality. IMPRESSION: 1. No acute abnormality. 2. Additional findings as above. - Medical Decision Making This patient presents to the emergency department with a complaint of abdominal pain, a few episodes of rectal bleeding, as well as some recent nausea with vomiting and some blood-tinged emesis. On examination the patient does not appear in any acute distress. There is some upper abdominal tenderness to palpation. The abdomen is soft, nondistended and nontoxic in appearance. His labs are mostly unremarkable except for very mild renal insufficiency with a GFR 55, and mild transaminitis that is most likely secondary to his history of hepa titis. Given the patient's complaints, and his history of having a PEG tube secondary to esophageal issues, the patient had a CT scan of the abdomen pelvis with IV contrast. This resulted as no acute process in the abdomen or pelvis. The patient has now repeatedly asked for something to eat. There has been no vomiting within the emergency department. Vital signs have been reassuring including being afebrile. The patient appears safe for discharge home at this time. He follows up with Dr. Kwon, infectious disease, who also acts as his PCP. He has been given an outpatient referral for [facility] regarding his abdominal pain, complaints of rectal bleeding and hematemesis. The patient was given a prescription for Zofran ODT, omeprazole and a small amount of pain medication. He has been instructed to return to the emergency department with any worsening of his symptoms or with any acute distress. Critical Care Time: No Critical care attestation.: If time is entered above; I have spent that time in minutes in the direct care of this critically ill patient, excluding procedure time. ED Disposition Clinical Impression: Rectal bleeding Abdominal pain Qualifiers: Abdominal location: unspecified location Qualified Code(s): R10.9 - Unspecified abdominal pain Nausea & vomiting Qualifiers: Vomiting type: unspecified Vomiting Intractability: non-intractable Qualified Code(s): R11.2 - Nausea with vomiting, unspecified Hematemesis Qualifiers: Nausea presence: with nausea Qualified Code(s): K92.0 - Hematemesis Disposition: - TO HOME OR SELFCARE Is pt being admited?: No Condition: Stable Instructions: Gastrointestinal Bleeding, Abdominal Pain, Adult Additional Instructions: Please follow-up with your primary care physician in the next few days. I am giving you a referral for [facility] to follow-up regarding your recent rectal bleeding and the complaint of seeing blood when you vomited. Your kidney function was slightly decreased on the labs checked today. Th erefore, please avoid any NSAIDs such as Advil, ibuprofen, Aleve, naproxen. Your liver function tests were slightly elevated on the labs checked today. Therefore, please avoid any Tylenol/acetaminophen, or any alcohol use. You have been prescribed a medication that is sedating and therefore should not be taken prior to driving, working, and responsible for children and in no way should be mixed with alcohol of any quantity. Return to the emergency department with any worsening of your symptoms, new or concerning symptoms not addressed during this current emergency department visit, or with any acute distress. Take all medications as prescribed. Prescriptions: Omeprazole 20 mg PO QDAY #20 capsule. traMADoL [Ultram 50 MG tab] 50 mg PO Q6HR PRN #10 tablet PRN Reason: Pain Ondansetron [Zofran Odt] 4 mg PO Q8HR PRN #12 tab.rapdis PRN Reason: Nausea Referrals: PANDA KWON MD [Primary Care Provider] - 3-5 Days [facility] [Provider Group] - 3-5 Days Forms: Accompanied Note Time of Disposition: 19:11
--- NOTE | 2020-11-16 18:53 | Cat Scan Report ---
CT ABDOMEN AND PELVIS WITH CONTRAST INDICATION / CLINICAL INFORMATION: Unspecified abdominal pain, GI bleed. TECHNIQUE: Axial CT images were obtained through the abdomen and pelvis after 100 cc Omnipaque [address] scans at this location are performed using CT dose reduction for ALARA by means of automated exposure control. COMPARISON: CT abdomen and pelvis with contrast from 09/13/2018. FINDINGS: LOWER CHEST: No significant abnormality. LIVER: No significant abnormality. GALLBLADDER: Contracted and not well evaluated. BILE DUCTS: No significant abnormality. PANCREAS: No significant abnormality. SPLEEN: No significant abnormality. ADRENALS: No significant abnormality. RIGHT KIDNEY / URETER: A simple right lower renal pole cyst measures up to 3.8 cm. No other significa nt abnormality. LEFT KIDNEY / URETER: No significant abnormality. STOMACH / SMALL BOWEL: No significant abnormality. COLON: No significant abnormality. APPENDIX: No significant abnormality. PERITONEUM: No free fluid. No free air. No fluid collection. LYMPH NODES: No significant adenopathy. AORTA / ARTERIES: The aorta is normal in caliber with mild aortoiliac atherosclerosis. IVC / VEINS: No significant abnormality. URINARY BLADDER: No significant abnormality. REPRODUCTIVE ORGANS: No significant abnormality. ADDITIONAL FINDINGS: None. SKELETAL SYSTEM: No significant abnormality. IMPRESSION: 1. No acute abnormality. 2. Additional findings as above. Signer Name: Jose Fitzgerald MD Signed: 11/16/2020 6:48 PM Workstation Name: [id number]
[2020-11-16 19:26] VITALS: BP 154/90
== END 2020-11-16 19:25 | disposition home or self-care (01) ==
LOC: ED 13:27
DX: K62.5 Hemorrhage of anus and rectum (principal); K92.0 Hematemesis; R10.9 Unspecified abdominal pain; K21.9 Gastro-esophageal reflux disease without esophagitis; Z21 Asymptomatic human immunodeficiency virus [HIV] infection status; F17.200 Nicotine dependence, unspecified, uncomplicated; Z98.890 Other specified postprocedural states; Z91.040 Latex allergy status; Z79.1 Long term (current) use of non-steroidal anti-inflammatories (NSAID); Z79.899 Other long term (current) drug therapy
CPT/HCPCS: 36415; 71046; 74177; 80048; 80076; 83690; 85025; 85610; 85730; 86850; 86900; 86901; 99284; Q9967

== ENCOUNTER 2021-04-09 15:01 | Emergency (ER) | payer MEDICAID ==
[2021-04-09 17:57] VITALS: BP 141/87
--- NOTE | 2021-04-09 18:02 | Emergency Department Report ---
ED General Adult HPI - General Chief complaint: Chest Pain Stated complaint: CP/MOUTH PAIN Time Seen by Provider: 04/09/21 17:57 Source: patient Mode of arrival: Ambulatory Limitations: No Limitations - History of Present Illness Initial comments: 40-year-old male with a history of full-blown AIDS, hepatitis B, and renal disease presents to the ER today with complaints of thrush. Patient states that he developed thrush in his mouth about 2 weeks ago. He states that at the time he was incarcerated, and during that time the did not give him anything to treat discharge, and he was also not being treated with his antiretrovirals until he get out he started taking his medications again. He reports some mild discomfort with swallowing and just mouth irritation but otherwise he is able to control his secretions, without any drooling or trismus. Patient also reports that he developed a productive cough couple days ago and reports left- sided chest pain mainly when he coughs. He denies any associated shortness of breath or wheezing. He denies any fever or chills. He denies any known ill contacts. He did not get the COVID-19 vaccine. He reports no additional symptoms at this time. MD Complaint: Thrush,Cough, chest pain from cough -: days(s) - Related Data Home Medications Medication Instructions Recorded Confirmed Last Taken Dolutegravir Sodium [Tivicay] 800 mg PO QDAY 05/22/16 07/02/16 07/02/16 Micafungin [Mycamine] 100 mg IV QDAY 05/22/16 07/02/16 07/02/16 Previous Rx's Medication Instructions Recorded Last Taken Type Albuterol Mdi (or & Nicu Only) 2 puff IH QID PRN #1 inhalation 05/22/16 Unknown Rx [ProAir HFA Inhaler] Ibuprofen [Motrin] 800 mg PO Q8HR PRN #30 tablet 07/17/17 Unknown Rx Itraconazole [Onmel] 200 mg PO QDAY #14 tab 09/19/19 Unknown Rx Omeprazole 20 mg PO QDAY #20 capsule. 11/16/20 Unknown Rx Benzonatate [Tessalon Perles] 100 mg PO Q8HR PRN #30 capsule 04/09/21 Unknown Rx Fluconazole [Diflucan TAB] 100 mg PO QDAY #7 tablet 04/09/21 Unknown Rx HYDROcodone/APAP 5-325 [[place] 1 each PO Q6HR PRN #12 tablet 04/09/21 Unknown Rx 5-325 mg TAB] Nystatin [Nystatin SUSP] 5 ml PO TID 14 Days #1 bottle 04/09/21 Unknown Rx Ondansetron [Zofran ODT TAB] 4 mg PO Q8HR PRN #12 tab.rapdis 04/09/21 Unknown Rx Allergies Allergy/AdvReac Type Severity Reaction Status Date / Time latex Allergy Itching Verified 08/07/15 12:37 ED Review of Systems ROS: Stated complaint: CP/MOUTH PAIN Other details as noted in HPI Comment: All other systems reviewed and negative Constitutional: denies: chills, fever Eyes: denies: eye pain, eye discharge, vision change ENT: throat pain, other (thrush ). denies: ear pain Respiratory: cough. denies: shortness of breath, SOB with exertion, SOB at rest, wheezing Cardiovascular: chest pain (when cough) Endocrine: no symptoms reported Gastrointestinal: denies: abdominal pain, nausea, vomiting, diarrhea, constipation, hematemesis, hematochezia Genitourinary: denies: urgency, dysuria, frequency, hematuria, discharge, testicular pain, testicular mass Musculoskeletal: denies: back pain, joint swelling, arthralgia Skin: denies: rash, lesions, change in color, change in hair/nails, pruritus Neurological: denies: headache, weakness, numbness, paresthesias, confusion, abnormal gait, vertigo Psychiatric: denies: anxiety, depression, auditory hallucinations, visual hallucinations, homicidal thoughts, suicidal thoughts Hematological/Lymphatic: denies: easy bleeding, easy bruising, swollen glands ED Past Medical Hx - Past Medical History Previous Medical History?: Yes Hx Hypertension: No Hx CVA: No Hx Heart Attack/AMI: No Hx Congestive Heart Failure: No Hx Diabetes: No Hx Deep Vein Thrombosis: No Hx Pulmonary Embolism: No Hx GERD: Yes Hx Liver Disease: Yes (hepatitis C) 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 esophagitis. MRSA - Surgical History Past Surgical History?: Yes Hx Coronary Stent: No Hx Open Heart Surgery: No Hx Pacemaker: No Hx Internal Defibrillator: No Hx Cholecystectomy: No Hx Appendectomy: No Hx Breast Surgery: No Additional Surgical History: port to left chest- removed. pic line to left upper arm-removed. PEG tube placement- removed - Social History Smoking Status: Current Every Day Smoker Substance Use Type: Prescribed - Medications Home Medications: Home Medications Medication Instructions Recorded Confirmed Last Taken Type Albuterol Mdi (or & Nicu Only) 2 puff IH QID PRN #1 inhalation 05/22/16 07/02/16 Unknown Rx [ProAir HFA Inhaler] Dolutegravir Sodium [Tivicay] 800 mg PO QDAY 05/22/16 07/02/16 07/02/16 History Micafungin [Mycamine] 100 mg IV QDAY 05/22/16 07/02/16 07/02/16 History Ibuprofen [Motrin] 800 mg PO Q8HR PRN #30 tablet 07/17/17 Unknown Rx Itraconazole [Onmel] 200 mg PO QDAY #14 tab 09/19/19 Unknown Rx Omeprazole 20 mg PO QDAY #20 capsule. 11/16/20 Unknown Rx Benzonatate [Tessalon Perles] 100 mg PO Q8HR PRN #30 capsule 04/09/21 Unknown Rx Fluconazole [Diflucan TAB] 100 mg PO QDAY #7 tablet 04/09/21 Unknown Rx HYDROcodone/APAP 5-325 [[place] 1 each PO Q6HR PRN #12 tablet 04/09/21 Unknown Rx 5-325 mg TAB] Nystatin [Nystatin SUSP] 5 ml PO TID 14 Days #1 bottle 04/09/21 Unknown Rx Ondansetron [Zofran ODT TAB] 4 mg PO Q8HR PRN #12 tab.rapdis 04/09/21 Unknown Rx ED Physical Exam - General Limitations: No Limitations General appearance: alert, in no apparent distress - Head Head exam: Present: atraumatic, normocephalic, normal inspection - Eye Eye exam: Present: normal appearance, PERRL, EOMI Pupils: Present: normal accommodation - ENT ENT exam: Present: mucous membranes moist, other (White exudates noted to hard and soft palate, the posterior oropharynx; no swelling noted to the posterior pharynx, no trismus or drooling) - Neck Neck exam: Present: normal inspection, full ROM. Absent: meningismus - Respiratory Respiratory exam: Present: normal lung sounds bilaterally, chest wall tenderness (Left upper anterior chest wall). Absent: respiratory distress, rales, rhonchi, stridor - Cardiovascular Cardiovascular Exam: Present: regular rate, normal rhythm, normal heart sounds - GI/Abdominal GI/Abdominal exam: Present: soft. Absent: distended, tenderness, guarding, rebound - Neurological Exam Neurological exam: Present: alert, oriented X3, CN II-XII intact, normal gait - Psychiatric Psychiatric exam: Present: normal affect, normal mood - Skin Skin exam: Present: intact ED Course Vital Signs 04/09/21 17:51 Temperature 97.9 F Pulse Rate 68 Respiratory 18 Rate Blood Pressure 141/87 O2 Sat by Pulse 99 Oximetry ED Medical Decision Making - EKG Data EKG shows normal: sinus rhythm Rate: normal (93) - Radiology Data Radiology results: report reviewed Patient: JEREMIAH CORDOVA MR#: [id number] : 1980 Acct:[id number] Age/Sex: 40 / M ADM Date: 04/09/21 Loc: ED Attending Dr: Ordering Physician: LATRICIA JONES Date of Service: 04/09/21 Procedure(s): XR chest routine 2V Accession Number(s): [id number] cc: LATRICIA JONES Fluoro Time In Minutes: XR chest routine 2V INDICATION / CLINICAL INFORMATION: cough. COMPARISON: Chest radiograph from 11/16/2020. FINDINGS: SUPPORT DEVICES: None. HEART /PULMONARY VASCULATURE: No significant abnormality. LUNGS / PLEURA: No significant pulmonary or pleural abnormality. No pneumothorax. ADDITIONAL FINDINGS: No significant additional findings. IMPRESSION: 1. No acute findings. Signer Name: Farhat Melendrez MD Signed: 04/09/2021 6:16 PM Workstation Name: [id number] Transcribed By: TK Dictated By: FARHAT MELENDREZ MD Electronically Authenticated By: FARHAT MELENDREZ MD Signed Date/Time: 04/09/211815 DD/ 15 TD/TT: - Medical Decision Making The patient is resting comfortably, is alert and in no distress. The patient has normal mental status and is neurologically intact. The patient appears well and there is no significant dehydration. There is no respiratory distress, inspiratory stridor, trismus or drooling and no signs of systemic toxicity. Chest x-ray shows nothing acute. The history, exam, diagnostic testing and current condition do not demonstrate an infectious process such as meningitis, severe pneumonia, retropharyngeal abscess, epiglottitis, acute coronary syndrome, PE, Sepsis or other serious viral/bacterial infection or cardiopulmonary condition requiring further testing, treatment, consultation or admission at this time. His vital signs have been stable discussed x-ray results with patient. He does have reproducible chest wall tenderness, which likely is the cause of his pain secondary to his coughing. Patient will be treated for his thrush, as well as medication for his cough and pain. Patient instructed to follow-up closely with his ID specialist and continue being compliant with his antiretroviral medication. Patient expressed understanding of all instructions and agree with plan. Patient was stable at time of discharge. Critical care attestation.: If time is entered above; I have spent that time in minutes in the direct care of this critically ill patient, excluding procedure time. ED Disposition Clinical Impression: Oral thrush, Cough, Chest wall pain Disposition: 01 HOME / SELF CARE / HOMELESS Is pt being admited?: No Does the pt Need Aspirin: No Condition: Stable Instructions: Oral Thrush, Adult, Chest Wall Pain, [id number] Additional Instructions: Take the diflucan and use the nystatin mouth wash as prescribed. I recommend that you take the tessalon perles as prescribed to help with cough. You can take hydrocodone as needed for pain. Keep your appointment with the ID specialist. Return to the ER if your symptoms changes or worsens in any way. Prescriptions: Fluconazole [Diflucan TAB] 100 mg PO QDAY #7 tablet HYDROcodone/APAP 5-325 [[place] 5-325 mg TAB] 1 each PO Q6HR PRN #12 tablet PRN Reason: Pain Nystatin [Nystatin SUSP] 5 ml PO TID 14 Days #1 bottle Benzonatate [Tessalon Perles] 100 mg PO Q8HR PRN #30 capsule PRN Reason: Cough Ondansetron [Zofran ODT TAB] 4 mg PO Q8HR PRN #12 tab.rapdis PRN Reason: Nausea Referrals: PRIMARY CARE, [Primary Care Provider] - 3-5 Days Forms: Work/School Release Form(ED) Time of Disposition: 18:51
--- NOTE | 2021-04-09 18:21 | XRay Report ---
XR chest routine 2V INDICATION / CLINICAL INFORMATION: cough. COMPARISON: Chest radiograph from 11/16/2020. FINDINGS: SUPPORT DEVICES: None. HEART /PULMONARY VASCULATURE: No significant abnormality. LUNGS / PLEURA: No significant pulmonary or pleural abnormality. No pneumothorax. ADDITIONAL FINDINGS: No significant additional findings. IMPRESSION: 1. No acute findings. Signer Name: Federico Melendrez MD Signed: 04/09/2021 6:16 PM Workstation Name: [id number]
--- NOTE | 2021-04-14 13:54 | Electrocardiograph Report ---
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
== END 2021-04-09 19:21 | disposition home or self-care (01) ==
LOC: ED 15:01
DX: B37.0 Candidal stomatitis (principal); R05 Cough; R07.89 Other chest pain; K21.9 Gastro-esophageal reflux disease without esophagitis; B19.20 Unspecified viral hepatitis C without hepatic coma; N28.9 Disorder of kidney and ureter, unspecified; B20 Human immunodeficiency virus [HIV] disease; I38 Endocarditis, valve unspecified; K20.90 Esophagitis, unspecified without bleeding; A49.02 Methicillin resistant Staphylococcus aureus infection, unspecified site; I82.621 Acute embolism and thrombosis of deep veins of right upper extremity; Z98.890 Other specified postprocedural states; F17.200 Nicotine dependence, unspecified, uncomplicated; Z91.040 Latex allergy status
CPT/HCPCS: 71046; 93005; 99283

== ENCOUNTER 2021-05-28 22:07 | Inpatient (IN) | payer MEDICAID ==
[2021-05-29] MEDS ORDERED: SODIUM CHLORIDE 0.9% 1000 ML 1,000 ML IV ONE (00:08)
[2021-05-29] MEDS ORDERED: ONDANSETRON 4 MG/2 ML INJ IV STA (00:09)
[2021-05-29 00:57] LABS: Basophils % (Auto) 0.5 % (0.0-1.8); Eosinophils # (Auto) 0.2 K/mm3 (0.0-0.4); Eosinophils % (Auto) 3.2 % (0.0-4.3); Hematocrit 36.3 % (35.5-45.6); Hemoglobin 11.5 gm/dl (11.8-15.2); Lymphocytes # (Auto) 1.4 K/mm3 (1.2-5.4); Lymphocytes % (Auto) 27.8 % (13.4-35.0); Mean Corpuscular HGB Conc 32 % (32-34); Mean Corpuscular Volume 91 fl (84-94); Monocytes # (Auto) 0.7 K/mm3 (0.0-0.8); Monocytes % (Auto) 13.3 % (0.0-7.3); Platelet Count 202 K/mm3 (140-440); Red Cell Distribution Width 16.1 % (13.2-15.2)
[2021-05-29 01:03] LABS: Alanine Aminotransferase 17 units/L (7-56); Albumin 3.5 g/dL (3.9-5); BUN/Creatinine Ratio 10; Blood Urea Nitrogen 19 mg/dL (9-20); Calcium 8.5 mg/dL (8.4-10.2); Hemolysis Index 9
[2021-05-29] MEDS ORDERED: oxyCODONE /ACETAMINOPHEN 5-325MG TAB PO ONE (01:33)
[2021-05-29] MEDS ORDERED: LIDOCAINE VISCOUS 2% 15 ML ORAL LIQD MM NR (01:45)
--- NOTE | 2021-05-29 01:47 | XRay Report ---
CHEST 1 VIEW 05/28/2021 11:39 PM INDICATION / CLINICAL INFORMATION: Chest Pain. COMPARISON: 04/09/2021 FINDINGS: SUPPORT DEVICES: None. HEART / MEDIASTINUM: No significant abnormality. LUNGS / PLEURA: No significant pulmonary or pleural abnormality. No pneumothorax. ADDITIONAL FINDINGS: No significant additional findings. IMPRESSION: 1. No acute findings. Signer Name: Hector Agosto DO Signed: 05/29/2021 1:43 AM Workstation Name: [email or web address]
[2021-05-29] MEDS ORDERED: HYDROmorphone 1 MG/1 ML INJ IV ONE (01:58)
--- NOTE | 2021-05-29 02:16 | Emergency Department Report ---
<KMYULEENA - Last Filed: 05/29/21 02:11> ED General Adult HPI - General Chief complaint: Chest Pain Stated complaint: CHEST PAIN/THROAT PAIN Time Seen by Provider: 05/29/21 00:08 Source: patient Mode of arrival: Ambulatory Limitations: No Limitations - History of Present Illness Radiation: non-radiation Severity scale (0 -10): 10 Quality: aching, dull Improves with: none Worsens with: none Associated Symptoms: chest pain, malaise, nausea/vomiting, weakness. denies: diaphoresis Treatments Prior to Arrival: none - Related Data Home Medications Medication Instructions Recorded Confirmed Last Taken Dolutegravir Sodium [Tivicay] 800 mg PO QDAY 05/22/16 07/02/16 07/02/16 Micafungin [Mycamine] 100 mg IV QDAY 05/22/16 07/02/16 07/02/16 Previous Rx's Medication Instructions Recorded Last Taken Type Albuterol Mdi (or & Nicu Only) 2 puff IH QID PRN #1 inhalation 05/22/16 Unknown Rx [ProAir HFA Inhaler] Ibuprofen [Motrin] 800 mg PO Q8HR PRN #30 tablet 07/17/17 Unknown Rx Itraconazole [Onmel] 200 mg PO QDAY #14 tab 09/19/19 Unknown Rx Omeprazole 20 mg PO QDAY #20 capsule. 11/16/20 Unknown Rx Benzonatate [Tessalon Perles] 100 mg PO Q8HR PRN #30 capsule 04/09/21 Unknown Rx Fluconazole [Diflucan TAB] 100 mg PO QDAY #7 tablet 04/09/21 Unknown Rx HYDROcodone/APAP 5-325 [[place] 1 each PO Q6HR PRN #12 tablet 04/09/21 Unknown Rx 5-325 mg TAB] Nystatin [Nystatin SUSP] 5 ml PO TID 14 Days #1 bottle 04/09/21 Unknown Rx Ondansetron [Zofran ODT TAB] 4 mg PO Q8HR PRN #12 tab.rapdis 04/09/21 Unknown Rx Allergies Allergy/AdvReac Type Severity Reaction Status Date / Time latex Allergy Itching Verified 08/07/15 12:37 ED Review of Systems Comment: All other systems reviewed and negative ED Past Medical Hx - Past Medical History Previous Medical History?: Yes Hx Hypertension: No Hx CVA: No Hx Heart Attack/AMI: No Hx Congestive Heart Failure: No Hx Diabetes: No Hx Deep Vein Thrombosis: No Hx Pulmonary Embolism: No Hx GERD: Yes Hx Liver Disease: Yes (hepatitis C) 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 esophagitis. MRSA - Surgical History Past Surgical History?: Yes Hx Coronary Stent: No Hx Open Heart Surgery: No Hx Pacemaker: No Hx Internal Defibrillator: No Hx Cholecystectomy: No Hx Appendectomy: No Hx Breast Surgery: No Additional Surgical History: port to left chest- removed. pic line to left upper arm-removed. PEG tube placement- removed - Social History Smoking Status: Current Every Day Smoker Substance Use Type: Prescribed - Medications Home Medications: Home Medications Medication Instructions Recorded Confirmed Last Taken Type Albuterol Mdi (or & Nicu Only) 2 puff IH QID PRN #1 inhalation 05/22/16 07/02/16 Unknown Rx [ProAir HFA Inhaler] Dolutegravir Sodium [Tivicay] 800 mg PO QDAY 05/22/16 07/02/16 07/02/16 History Micafungin [Mycamine] 100 mg IV QDAY 05/22/16 07/02/16 07/02/16 History Ibuprofen [Motrin] 800 mg PO Q8HR PRN #30 tablet 07/17/17 Unknown Rx Itraconazole [Onmel] 200 mg PO QDAY #14 tab 09/19/19 Unknown Rx Omeprazole 20 mg PO QDAY #20 capsule. 11/16/20 Unknown Rx Benzonatate [Tessalon Perles] 100 mg PO Q8HR PRN #30 capsule 04/09/21 Unknown Rx Fluconazole [Diflucan TAB] 100 mg PO QDAY #7 tablet 04/09/21 Unknown Rx HYDROcodone/APAP 5-325 [[place] 1 each PO Q6HR PRN #12 tablet 04/09/21 Unknown Rx 5-325 mg TAB] Nystatin [Nystatin SUSP] 5 ml PO TID 14 Days #1 bottle 04/09/21 Unknown Rx Ondansetron [Zofran ODT TAB] 4 mg PO Q8HR PRN #12 tab.rapdis 04/09/21 Unknown Rx ED Physical Exam - General Limitations: No Limitations General appearance: alert, in no apparent distress - Head Head exam: Present: atraumatic, normocephalic - Eye Eye exam: Present: normal appearance, PERRL, EOMI - ENT ENT exam: Present: mucous membranes moist, other (Heavy and diffuse oral thrush to the tongue and posterior pharynx however airway is patent). Absent: normal exam, normal orophraynx (Severe dental erosion) - Neck Neck exam: Present: normal inspection - Respiratory Respiratory exam: Present: normal lung sounds bilaterally, chest wall tenderness (Right side with palpation). Absent: respiratory distress - Cardiovascular Cardiovascular Exam: Present: regular rate, normal rhythm. Absent: systolic murmur, diastolic murmur, rubs, gallop - GI/Abdominal GI/Abdominal exam: Present: soft, normal bowel sounds - Rectal Rectal exam: Present: deferred - Extremities Exam Extremities exam: Present: normal inspection - Back Exam Back exam: Present: normal inspection - Neurological Exam Neurological exam: Present: alert, oriented X3 - Psychiatric Psychiatric exam: Present: normal affect, normal mood - Skin Skin exam: Present: warm, dry, intact, normal color. Absent: rash ED Medical Decision Making - Lab Data Result diagrams: 05/29/21 00:26 05/29/21 00:26 - Radiology Data Radiology results: report reviewed [facility] [address] [place] [address] XRay Report Signed Patient: JEREMIAH BERNSTEIN MR#: [id number] : 1980 Acct:[id number] Age/Sex: 40 / M ADM Date: 05/28/21 Loc: ED Attending Dr: Ordering Physician: SUZY LAMB Date of Service: 05/29/21 Procedure(s): XR chest 1V ap Accession Number(s): [id number] cc: SUZY LAMB Fluoro Time In Minutes: CHEST 1 VIEW 05/28/2021 11:39 PM INDICATION / CLINICAL INFORMATION: Chest Pain. COMPARISON: 04/09/2021 FINDINGS: SUPPORT DEVICES: None. HEART / MEDIASTINUM: No significant abnormality. LUNGS / PLEURA: No significant pulmonary or pleural abnormality. No pneumothorax. ADDITIONAL FINDINGS: No significant additional findings. IMPRESSION: 1. No acute findings. Signer Name: Hector Shoemaker DO Signed: 05/29/2021 1:43 AM Workstation Name: [id number] Transcribed By: FRANCIS Dictated By: HECTOR SHOEMAKER DO Electronically Authenticated By: HECTOR SHOEMAKER DO Signed Date/Time: 05/29/21142 DD/ 1 TD/TT: Print Cancel - Medical Decision Making 40-year-old Malian male presents emerged department complaining of right chest pain, nausea, vomiting, fatigue and weakness. Compliant with his antiviral therapy. Examination does indicate he has similar conversation with with the diffuse oral thrush. And chemistry to support renal failure which may be acute on chronic versus chronic given the numbers. Due to the findings on his on examination, the patient's follow-up and the chemistry plan is to admit. Case discussed with attending who had [id number] with Ms. Bernstein and agrees with the plan ED Disposition Clinical Impression: Oral thrush HIV (human immunodeficiency virus infection) Qualifiers: HIV symptom status: unspecified Qualified Code(s): B20 - Human immunodeficiency virus [HIV] disease Renal failure Qualifiers: Renal failure chronicity: acute Acute renal failure type: unspecified Qualified Code(s): N17.9 - Acute kidney failure, unspecified Chest pain Qualifiers: Chest pain type: unspecified Qualified Code(s): R07.9 - Chest pain, unspecified Disposition: 09 ADMITTED INPATIENT Is pt being admited?: Yes Does the pt Need Aspirin: No Condition: Serious <MARJORIE VINCENT III - Last Filed: 05/29/21 04:42> ED General Adult HPI - General PUI?: No ED Review of Systems ROS: Stated complaint: CHEST PAIN/THROAT PAIN Other details as noted in HPI ED Course Vital Signs 05/28/21 05/29/21 05/29/21 22:32 01:41 01:46 Temperature 98.2 F Pulse Rate 75 62 80 Respiratory 18 19 21 Rate Blood Pressure 135/87 O2 Sat by Pulse 99 96 99 Oximetry 05/29/21 05/29/21 05/29/21 02:00 02:07 02:16 Temperature Pulse Rate 87 74 Respiratory 12 20 16 Rate Blood Pressure 148/109 O2 Sat by Pulse 98 94 Oximetry - Reevaluation(s) Reevaluation #1: I reviewed the findings and management of this patient in real-time and I have personally seen and examined this patient and participated in the decision making for this patient with the midlevel. Patient is a 40-year-old male presents emergency room with complaints of severe throat pain and right-sided chest pain. Patient has history of HIV and has pretty widespread oral thrush. I examined the patient. Patient's lung sounds are clear to auscultation. Patient has right-sided chest tenderness to palpation. Patient has a normal S1- S2 and no murmur noted. Patient oral exam shows white patches and oral thrush throughout the oropharynx. Patient unable to tolerate oral intake due to oral thrush. Patient unable to swallow pills. Patient will be given Dilaudid and the Percocet will be discontinued. Patient had labs done. Patient's labs show acute renal failure with a creatinine of 2. I discussed all results with patient. I discussed plan of care with patient. Patient agrees with plan of care and admission. Patient to be admitted to the hospitalist service. 05/29/21 01:40 ED Medical Decision Making - Lab Data Result diagrams: 05/29/21 00:26 05/29/21 00:26 Critical care attestation.: If time is entered above; I have spent that time in minutes in the direct care of this critically ill patient, excluding procedure time. ED Disposition Is pt being admited?: Yes Does the pt Need Aspirin: No Time of Disposition: 02:42
[2021-05-29] MEDS ORDERED: ACETAMINOPHEN 325 MG TAB PO PRN (05:38)
[2021-05-29] MEDS ORDERED: NITROGLYCERIN 0.4 MG TAB SUBL SL PRN (05:38)
[2021-05-29] MEDS ORDERED: traMADol 50 MG TAB PO PRN (05:38)
[2021-05-29] MEDS ORDERED: ALBUTEROL 8.5 GM MDI INHALATION IH PRN (05:40)
[2021-05-29] MEDS ORDERED: IBUPROFEN 800 MG TAB PO PRN (05:40)
[2021-05-29] MEDS ORDERED: BENZONATATE 100 MG CAP PO PRN (05:40)
[2021-05-29] MEDS ORDERED: SODIUM CHLORIDE 0.9% 1000 ML 1,000 ML IV SCH (05:45)
--- NOTE | 2021-05-29 05:46 | History and Physical Report ---
History of Present Illness Date of examination: 05/29/21 Date of admission: 05/29/21 Chief complaint: Chest pain Throat pain History of present illness: 40 years old male with history of full-blown AIDS, hepatitis and renal disease was brought to the emergency room because of complaint of chest pain and throat pain. Chest pain is aching dull 05/18 as stated malaise nausea vomiting and weakness. Patient developed thrush in his mouth for last couple of days In the emergency room initial cardiac enzyme is negative troponin is 0.010, patient is found to have ARANZA BUN is 19 creatinine is 2.0. Past History Past Medical History: GERD, hepatitis, HIV/AIDS, renal failure Medications and Allergies Allergies Allergy/AdvReac Type Severity Reaction Status Date / Time latex Allergy Itching Verified 08/07/15 12:37 Home Medications Medication Instructions Recorded Confirmed Last Taken Type Albuterol Mdi (or & Nicu Only) 2 puff IH QID PRN #1 inhalation 05/22/16 07/02/16 Unknown Rx [ProAir HFA Inhaler] Dolutegravir Sodium [Tivicay] 800 mg PO QDAY 05/22/16 07/02/16 07/02/16 History Micafungin [Mycamine] 100 mg IV QDAY 05/22/16 07/02/16 07/02/16 History Ibuprofen [Motrin] 800 mg PO Q8HR PRN #30 tablet 07/17/17 Unknown Rx Itraconazole [Onmel] 200 mg PO QDAY #14 tab 09/19/19 Unknown Rx Omeprazole 20 mg PO QDAY #20 capsule. 11/16/20 Unknown Rx Benzonatate [Tessalon Perles] 100 mg PO Q8HR PRN #30 capsule 04/09/21 Unknown Rx Fluconazole [Diflucan TAB] 100 mg PO QDAY #7 tablet 04/09/21 Unknown Rx HYDROcodone/APAP 5-325 [Welcome 1 each PO Q6HR PRN #12 tablet 04/09/21 Unknown Rx 5-325 mg TAB] Nystatin [Nystatin SUSP] 5 ml PO TID 14 Days #1 bottle 04/09/21 Unknown Rx Ondansetron [Zofran ODT TAB] 4 mg PO Q8HR PRN #12 tab.rapdis 04/09/21 Unknown Rx Review of Systems All systems: negative Constitutional: weakness, malaise Cardiovascular: chest pain Gastrointestinal: nausea, vomiting Exam - Constitutional Vitals: Temp Pulse Resp BP Pulse Ox 98.2 F 57 L 20 130/85 43 L 05/28/21 22:32 05/29/21 04:46 05/29/21 04:54 05/29/21 05:00 05/29/21 05:00 General appearance: Present: no acute distress, well-nourished - EENT Eyes: Present: PERRL ENT: hearing intact, clear oral mucosa - Neck Neck: Present: supple, normal ROM - Respiratory Respiratory effort: normal Respiratory: bilateral: CTA - Cardiovascular Heart Sounds: Present: S1 & S2. Absent: rub, click - Extremities Extremities: pulses symmetrical, No edema Peripheral Pulses: within normal limits - Abdominal General gastrointestinal: Present: soft, non-tender, non-distended, normal bowel sounds Male genitourinary: Present: normal - Integumentary Integumentary: Present: clear, warm, dry - Musculoskeletal Musculoskeletal: gait normal, strength equal bilaterally - Psychiatric Psychiatric: appropriate mood/affect, intact judgment & insight - Neurologic Neurologic: CNII-XII intact, moves all extremities HEART Score - HEART Score Troponin: Troponin T < 0.010 ng/mL (0.00-0.029) 05/29/21 00:26 Results - Labs CBC & Chem 7: 05/29/21 00:26 05/29/21 00:26 Labs: Laboratory Last Values WBC 4.9 K/mm3 (4.5-11.0) 05/29/21 00:26 RBC 4.00 M/mm3 (3.65-5.03) 05/29/21 00:26 Hgb 11.5 gm/dl (11.8-15.2) L 05/29/21 00:26 Hct 36.3 % (35.5-45.6) 05/29/21 00:26 MCV 91 fl (84-94) 05/29/21 00:26 MCH 29 pg (28-32) 05/29/21 00:26 MCHC 32 % (32-34) 05/29/21 00:26 RDW 16.1 % (13.2-15.2) H 05/29/21 00:26 Plt Count 202 K/mm3 (140-440) 05/29/21 00:26 Lymph % (Auto) 27.8 % (13.4-35.0) 05/29/21 00:26 Haskell % (Auto) 13.3 % (0.0-7.3) H 05/29/21 00:26 Eos % (Auto) 3.2 % (0.0-4.3) 05/29/21 00:26 Baso % (Auto) 0.5 % (0.0-1.8) 05/29/21 00:26 Lymph # (Auto) 1.4 K/mm3 (1.2-5.4) 05/29/21 00:26 Haskell # (Auto) 0.7 K/mm3 (0.0-0.8) 05/29/21 00:26 Eos # (Auto) 0.2 K/mm3 (0.0-0.4) 05/29/21 00:26 Baso # (Auto) 0.0 K/mm3 (0.0-0.1) 05/29/21 00:26 Seg Neutrophils % 55.2 % (40.0-70.0) 05/29/21 00:26 Seg Neutrophils # 2.7 K/mm3 (1.8-7.7) 05/29/21 00:26 Sodium 141 mmol/L (137-145) 05/29/21 00:26 Potassium 4.9 mmol/L (3.6-5.0) 05/29/21 00:26 Chloride 105.3 mmol/L (98-107) 05/29/21 00:26 Carbon Dioxide 23 mmol/L (22-30) 05/29/21 00:26 Anion Gap 18 mmol/L 05/29/21 00:26 BUN 19 mg/dL (9-20) 05/29/21 00:26 Creatinine 2.0 mg/dL (0.8-1.3) H 05/29/21 00:26 Estimated GFR 45 ml/min 05/29/21 00:26 BUN/Creatinine Ratio 10 % 05/29/21 00:26 Glucose 86 mg/dL (75-100) 05/29/21 00:26 Calcium 8.5 mg/dL (8.4-10.2) 05/29/21 00:26 Total Bilirubin 0.20 mg/dL (0.1-1.2) 05/29/21 00:26 AST 22 units/L (5-40) 05/29/21 00:26 ALT 17 units/L (7-56) 05/29/21 00:26 Alkaline Phosphatase 133 units/L (35-129) H 05/29/21 00:26 Troponin T < 0.010 ng/mL (0.00-0.029) 05/29/21 00:26 Total Protein 7.5 g/dL (6.3-8.2) 05/29/21 00:26 Albumin 3.5 g/dL (3.9-5) L 05/29/21 00:26 Albumin/Globulin Ratio 0.9 % 05/29/21 00:26 Lipase 60 units/L (13-60) 05/29/21 00:26 - Imaging and Cardiology Chest x-ray: report reviewed Assessment and Plan VTE prophylaxis?: Chemical Plan of care discussed with patient/family: Yes - Patient Problems (1) Acute coronary syndrome Current Visit: Yes Status: Acute Plan to address problem: Admitted patient to the telemetry. Chest pain most likely secondary to thrash. Aspirin 81 mg p.o. daily. Nitroglycerin as needed. Lipitor 40 mg p.o. daily. We will do the serial cardiac enzymes. Echocardiogram. (2) Oral thrush Current Visit: Yes Status: Acute Plan to address problem: Diflucan 100 mg p.o. daily, itraconazole 200 mg p.o. daily. Micafungin 100 mg IV daily. Nystatin mouthwash. Outpatient follow-up with infectious disease (3) HIV (human immunodeficiency virus infection) Current Visit: Yes Status: Acute Qualifiers: HIV symptom status: unspecified Qualified Code(s): B20 - Human immunodeficiency virus [HIV] disease Plan to address problem: We continue the home HIV medication. Outpatient follow-up with infectious disease and HIV clinic (4) Renal failure Current Visit: Yes Status: Acute Qualifiers: Renal failure chronicity: acute Acute renal failure type: unspecified Qualified Code(s): N17.9 - Acute kidney failure, unspecified Plan to address problem: Normal saline at the rate of 100 cc/h. Avoid nephrotoxic drug. Renally dose medication. Recheck BMP in the morning (5) DVT prophylaxis Current Visit: Yes Status: Acute Plan to address problem: Heparin 5000 units subcu every 8 hours for DVT prophylaxis. Omeprazole 20 mg p. o. daily for GI prophylaxis. Patient is a full code
[2021-05-29] MEDS ORDERED: ALBUTEROL 2.5 MG/3 ML NEBU IH PRN (06:01)
[2021-05-29] MEDS: HEPARIN 5,000 UNIT/1 ML VIAL SUB-Q SCH ×3 (06:38→22:45)
[2021-05-29 07:20] LABS: Hemoglobin 11.1 gm/dl (11.8-15.2); Mean Corpuscular HGB Conc 33 % (32-34); Mean Corpuscular Volume 90 fl (84-94); Platelet Count 181 K/mm3 (140-440); Red Cell Distribution Width 16.1 % (13.2-15.2)
[2021-05-29 07:32] LABS: Calcium 8.5 mg/dL (8.4-10.2)
[2021-05-29] MEDS: NYSTATIN 500,000 UNIT/5 ML ORAL LIQD PO SCH ×3 (08:04→22:40)
[2021-05-29] MEDS: MORPHINE 4 MG/1 ML INJ IV PRN ×3 (08:33→22:45)
[2021-05-29] MEDS: PANTOPRAZOLE 20 MG TAB PO SCH (09:55)
[2021-05-29] MEDS ORDERED: ASPIRIN 81 MG TAB CHEW ONE (09:58)
[2021-05-29] MEDS ORDERED: NON-FORMULARY EACH (Omeprazole [Omeprazole] 20 MG Capsule.Dr) PO SCH (10:00)
[2021-05-29] MEDS ORDERED: ITRACONAZOLE 200 MG PO SCH (10:00)
[2021-05-29] MEDS ORDERED: DOLUTEGRAVIR 50 MG TAB PO SCH (10:00)
[2021-05-29] MEDS ORDERED: MICAFUNGIN SODIUM 100 MG IV SCH (10:00)
--- NOTE | 2021-05-29 11:56 | Electrocardiograph Report ---
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
--- NOTE | 2021-05-29 12:06 | Event Note ---
Date: 05/29/21 The patient was examined today and is currently hemodynamically stable. Infectious disease was consulted and recommendations are pending. IV fluid resuscitation will be continued in the setting of the patient being n.p.o. and to improve renal function.
--- NOTE | 2021-05-29 12:09 | Consultation ---
History of Present Illness - Reason for Consult Consult date: 05/29/21 AIDS, esophagitis Requesting physician: JUAN SHAW - History of Present Illness The patient is a 40-year-old male with HIV/AIDS, substance abuse, CKD was admitted to the hospital with complaints of chest pain and throat pain. Work-up lab bond revealed some leukopenia, elevated creatinine at 2.0. Patient was found to have significant oral thrush, infectious diseases was consulted for additional evaluation. Troponin was negative. He has otherwise been afebrile. With regards to his HIV, diagnosed in 2006, risk factor is bisexual behavior, he used to follow-up at [facility], but does not want to follow-up there. He stopped taking his medicines for more than 6 months which he attributes to being incarcerated. He does have medications with him, last was on Biktarvy, Pr ezcobix, states that these medicines were working, at one point he was undetectable. He does not remember his last viral load or CD4 count. Review of Systems: General: no fevers,chills or rigors HEENT: no new visual disturbance Respiratory: No cough, sputum, hemoptysis or shortness of breath Cardiovascular: No chest pain, syncope Gastrointestinal: No nausea, vomiting or diarrhea Genitourinary: No dysuria or hematuria Musculoskeletal: No new or worsening neck pain or back pain Neurologic: No headaches, seizures Hematologic: No easy bruising or bleeding Endocrine: No night sweats or acute weight loss Skin: negative for rash, jaundice Psychiatric: No suicidal or homicidal ideation Past History Past Medical History: GERD, hepatitis, HIV/AIDS, renal failure Medications and Allergies Allergies Allergy/AdvReac Type Severity Reaction Status Date / Time latex Allergy Itching Verified 08/07/15 12:37 Home Medications Medication Instructions Recorded Confirmed Last Taken Type Acetaminophen [Tylenol] 500 mg PO PRN PRN 05/29/21 05/29/21 05/28/21 History Aspirin EC [Halfprin EC] 81 mg PO QDAY 05/29/21 05/29/21 05/28/21 History Bictegrav/Emtricit/Tenofov Ala 1 each PO QDAY 05/29/21 05/29/21 05/22/21 History [Biktarvy 50-200-25 mg Tablet] Darunavir/Cobicistat (Nf) 1 each PO QDAY 05/29/21 05/29/21 05/22/21 History [Prezcobix 800 mg-150 mg (Nf)] Ibuprofen [Ibu-200] 200 mg PO PRN PRN 05/29/21 05/29/21 05/28/21 History Active Meds: Active Medications Acetaminophen (Acetaminophen 325 Mg Tab) 650 mg PO Q6H PRN PRN Reason: Pain, Mild (1-3) Albuterol (Albuterol 2.5 Mg/3 Ml Nebu) 2.5 mg IH Q4HRT PRN PRN Reason: Shortness Of Breath Aspirin (Aspirin 81 Mg Tab Chew) 81 mg PO QDAY [facility] Atorvastatin Calcium (Atorvastatin 40 Mg Tab) 40 mg PO QHS [facility] Benzonatate (Benzonatate 100 Mg Cap) 100 mg PO Q8HR PRN PRN Reason: Cough Fluconazole (Fluconazole 100 Mg Tab) 100 mg PO QDAY [facility]; Protocol Heparin Sodium (Porcine) (Heparin 5,000 Unit/1 Ml Vial) 5,000 unit SUB-Q Q8HR [facility] Last Admin: 05/29/21 06:38 Dose: 5,000 unit Documented by: Sodium Chloride (Nacl 0.9% 1000 Ml) 1,000 mls @ 100 mls/hr IV DIRECT [facility] Last Admin: 05/29/21 08:17 Dose: 100 mls/hr Documented by: Ibuprofen (Ibuprofen 800 Mg Tab) 800 mg PO Q8HR PRN PRN Reason: Pain, Mild (1-3) Micafungin Sodium (Micafungin Sodium 100 Mg Inj) 100 mg IV QDAY [facility]; Protocol Morphine Sulfate (Morphine 4 Mg/1 Ml Inj) 2 mg IV Q5MIN PRN PRN Reason: Chest Pain unrelieved by NTG Last Admin: 05/29/21 08:33 Dose: 2 mg Documented by: Nitroglycerin (Nitroglycerin 0.4 Mg Tab Subl) 0.4 mg SL Q5M PRN PRN Reason: Chest Pain Nystatin (Nystatin 500,000 Unit/5 Ml Oral Liqd) 500,000 unit PO TID [facility] Last Admin: 05/29/21 08:04 Dose: 500,000 unit Documented by: Pantoprazole Sodium (Pantoprazole 20 Mg Tab) 20 mg PO QDAY [facility] Last Admin: 05/29/21 09:55 Dose: 20 mg Documented by: Sodium Chloride (Sodium Chloride 0.9% 10 Ml Flush Syringe) 10 ml IV PRN PRN PRN Reason: LINE FLUSH Tramadol HCl (Tramadol 50 Mg Tab) 50 mg PO Q6H PRN PRN Reason: Pain, Moderate (4-6) Physical Examination - Physical Exam Narrative exam: Physical Exam: Constitutional: Alert, cooperative. No acute distress. Cachexia Head, Ears, Nose: Normocephalic, atraumatic. External ears, nose normal Eyes: Conjunctivae/corneas clear. No icterus. No ptosis. Neck: Supple, no meningeal signs Oral: Significant thrush present, poor dentition Cardiovascular: S1, S2 + Respiratory: Good air entry, clear to auscultation bilaterally GI: Soft, non-tender; bowel sounds normal. No peritoneal signs Musculoskeletal: No pedal edema, no cyanosis. Skin: No rash or abscess Hem/Lymphatic: No palpable cervical or supraclavicular nodes. No lymphangitis Psych: Mood ok. Affect normal Neurological: Awake, alert, oriented. No gross abnormality - Constitutional Vitals: Vital Signs Temp Pulse Resp BP Pulse Ox 98.2 F 57 L 20 125/78 99 05/28/21 22:32 05/29/21 04:46 05/29/21 04:54 05/29/21 07:02 05/29/21 07:02 Temperature -Last 24 Hours Temperature 98.2 F Results - Labs CBC & Chem 7: 05/29/21 07:02 05/29/21 07:02 Labs: Abnormal lab results 05/29/21 05/29/21 05/29/21 Range/Units 00:26 00:26 07:02 WBC 3.7 L (4.5-11.0) K/mm3 Hgb 11.5 L 11.1 L (11.8-15.2) gm/dl Hct 34.0 L (35.5-45.6) % RDW 16.1 H 16.1 H (13.2-15.2) % Carter % (Auto) 13.3 H (0.0-7.3) % Chloride (98-107) mmol/L Creatinine 2.0 H (0.8-1.3) mg/dL Alkaline Phosphatase 133 H (35-129) units/L Albumin 3.5 L (3.9-5) g/dL 05/29/21 Range/Units 07:02 WBC (4.5-11.0) K/mm3 Hgb (11.8-15.2) gm/dl Hct (35.5-45.6) % RDW (13.2-15.2) % Carter % (Auto) (0.0-7.3) % Chloride 107.6 H (98-107) mmol/L Creatinine 1.8 H (0.8-1.3) mg/dL Alkaline Phosphatase (35-129) units/L Albumin (3.9-5) g/dL - Imaging and Cardiology Chest x-ray: report reviewed, image reviewed (no pneumonia) Assessment and Plan Cultures: None this admission A/P: 40-year-old male with HIV/AIDS, substance abuse, CKD: #HIV/AIDS: HIV, diagnosed in 2006, risk factor is bisexual behavior, he used to follow-up at [facility], but does not want to follow-up there. He stopped taking his medicines for more than 6 months which he attributes to being incarcerated. He does have medications with him, last was on Biktarvy, Prezcobix, states that these medicines were working, at one point he was undetectable. He does not remember his last viral load or CD4 count. #Oropharyngeal candidiasis, suspect esophageal candidiasis as well given chest p ain: Patient reports that Diflucan does not work for him. As per chart review, it seems he has received micafungin at the past. #ARANZA on CKD #Leucopenia: likely from AIDS. Recs: -Resume Biktarvy, Prezcobix -IV micafungin 100 mg daily -PO Bactrim DS 1 tablet daily for prophylaxis -HIV RNA PCR, CD4 count, HIV-1 genotype ordered -Contact information given to patient, will follow up in ID clinic post discharge -guarded prognosis if he remains non-compliant Tavia Judd MD, FACP [facility] O: [phone] F: [phone]
[2021-05-29] MEDS: FLUCONAZOLE 100 MG TAB PO SCH (12:28)
[2021-05-29] MEDS ORDERED: DARUNAVIR 800 MG PO SCH (14:00)
[2021-05-29] MEDS ORDERED: RITONAVIR 100 MG PO SCH (14:00)
[2021-05-29] MEDS ORDERED: DARUNAVIR 800 MG TAB PO SCH (14:00)
[2021-05-29] MEDS ORDERED: DOLUTEGRAVIR 50 MG, TENOFOVIR 300 MG, EMTRICITABINE 200 MG PO SCH (14:00)
[2021-05-29] MEDS: MICAFUNGIN 100 MG in SODIUM CHLORIDE 0.9% 100 ML IV SCH (17:47)
[2021-05-29] MEDS: DOLUTEGRAVIR 50 MG TAB PO SCH (17:48)
[2021-05-29] MEDS: EMTRICITABINE 200 MG CAP PO SCH (17:49)
[2021-05-29] MEDS: TENOFOVIR 300 MG TAB PO SCH (17:49)
[2021-05-29] MEDS: LACTATED RINGERS 1,000 ML IV SCH (17:50)
[2021-05-29] MEDS: SULFAMETHOXAZOLE/TRIMETHOPRIM 800/160MG DS TAB PO SCH (17:53)
[2021-05-29 19:47] LABS: RBC Morphology Normal; Total Cells Counted 100
[2021-05-29] MEDS ORDERED: RITONAVIR 100 MG TAB PO SCH (22:00)
[2021-05-30 06:30] LABS: Basophils % (Auto) 0.7 % (0.0-1.8); Eosinophils # (Auto) 0.2 K/mm3 (0.0-0.4); Eosinophils % (Auto) 5.3 % (0.0-4.3); Lymphocytes # (Auto) 1.4 K/mm3 (1.2-5.4); Lymphocytes % (Auto) 42.8 % (13.4-35.0); Mean Corpuscular HGB Conc 32 % (32-34); Mean Corpuscular Volume 91 fl (84-94); Monocytes # (Auto) 0.5 K/mm3 (0.0-0.8); Monocytes % (Auto) 15.9 % (0.0-7.3); Platelet Count 191 K/mm3 (140-440); Red Blood Count 3.75 M/mm3 (3.65-5.03); Red Cell Distribution Width 16.1 % (13.2-15.2)
[2021-05-30] MEDS: HEPARIN 5,000 UNIT/1 ML VIAL SUB-Q SCH ×3 (06:41→22:22)
[2021-05-30 06:45] LABS: Calcium 8.2 mg/dL (8.4-10.2)
[2021-05-30] MEDS: MORPHINE 4 MG/1 ML INJ IV PRN ×3 (06:56→18:59)
[2021-05-30] MEDS: LACTATED RINGERS 1,000 ML IV SCH ×2 (06:58→18:59)
--- NOTE | 2021-05-30 09:21 | Electrocardiograph Report ---
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
[2021-05-30] MEDS: PANTOPRAZOLE 20 MG TAB PO SCH (09:33)
[2021-05-30] MEDS: NYSTATIN 500,000 UNIT/5 ML ORAL LIQD PO SCH ×5 (09:33→22:22)
[2021-05-30] MEDS: DOLUTEGRAVIR 50 MG TAB PO SCH (09:34)
[2021-05-30] MEDS: EMTRICITABINE 200 MG CAP PO SCH (09:34)
[2021-05-30] MEDS: FLUCONAZOLE 100 MG TAB PO SCH (09:34)
[2021-05-30] MEDS: TENOFOVIR 300 MG TAB PO SCH (09:34)
[2021-05-30] MEDS: ASPIRIN 81 MG TAB CHEW PO SCH (09:35)
[2021-05-30] MEDS: SULFAMETHOXAZOLE/TRIMETHOPRIM 800/160MG DS TAB PO SCH (09:35)
--- NOTE | 2021-05-30 10:48 | Progress Note ---
Assessment and Plan Cultures: None this admission A/P: 40-year-old male with HIV/AIDS, substance abuse, CKD: #HIV/AIDS: HIV, diagnosed in 2006, risk factor is bisexual behavior, he used to follow-up at [facility], but does not want to follow-up there. He stopped taking his medicines for more than 6 months which he attributes to being incarcerated. He does have medications with him, last was on Biktarvy, Prezcobix, states that these medicines were working, at one point he was undetectable. He does not remember his last viral load or CD4 count. #Oropharyngeal candidiasis, suspect esophageal candidiasis as well given chest pain: Patient reports that Diflucan does not work for him. As per chart review, it seems he has received micafungin at the past. #ARANZA on CKD #Leucopenia: likely from AIDS. Recs: -continue Biktarvy (as therapeutic interchange per formulary), Prezcobix daily -continue IV micafungin 100 mg daily x 3-5 days, once thrush is improved, can discharge on PO Fluconazole 400 mg daily x 3 weeks (higher dose) -continue PO Bactrim DS 0.5 tablet daily for prophylaxis (renally adjusted) -f/u HIV RNA PCR, CD4 count, HIV-1 genotype -Contact information given to patient, will follow up in ID clinic post discharge -guarded prognosis if he remains non-compliant Tavia Judd MD, FACP [facility] ([facility] O: [phone] F: [phone] Subjective Date of service: 05/30/21 Interval history: No fever. Oral thrush still present. No new complaints. Objective - Exam Narrative Exam: Physical Exam: Constitutional: Alert, cooperative. No acute distress. Cachexia Head, Ears, Nose: Normocephalic, atraumatic. External ears, nose normal Eyes: Conjunctivae/corneas clear. No icterus. No ptosis. Neck: Supple, no meningeal signs Oral: Significant thrush present, poor dentition Cardiovascular: S1, S2 + Respiratory: Good air entry, clear to auscultation bilaterally GI: Soft, non-tender; bowel sounds normal. No peritoneal signs Musculoskeletal: No pedal edema, no cyanosis. Skin: No rash or abscess Hem/Lymphatic: No palpable cervical or supraclavicular nodes. No lymphangitis Psych: Mood ok. Affect normal Neurological: Awake, alert, oriented. No gross abnormality - Constitutional Vitals: Vital Signs Temp Pulse Resp BP Pulse Ox 98.1 F 67 18 146/93 96 05/30/21 08:11 05/30/21 08:11 05/30/21 08:11 05/30/21 08:11 05/30/21 08:11 Temperature -Last 24 Hours Temperature 98.1 F Temperature 97.8 F Temperature 98.8 F Temperature 98.2 F Temperature 98.9 F - Labs CBC & Chem 7: 05/30/21 04:43 05/30/21 04:43 Labs: Abnormal lab results 05/29/21 05/30/21 05/30/21 Range/Units 07:02 04:43 04:43 WBC 3.3 L (4.5-11.0) K/mm3 Hgb 11.0 L (11.8-15.2) gm/dl Hct 34.0 L (35.5-45.6) % RDW 16.1 H (13.2-15.2) % Lymph % (Auto) 42.8 H (13.4-35.0) % Callahan % (Auto) 15.9 H (0.0-7.3) % Eos % (Auto) 5.3 H (0.0-4.3) % Seg Neutrophils % 35.3 L (40.0-70.0) % Monocytes % (Manual) 14.0 H (0.0-7.3) % Eosinophils % (Manual) 6.0 H (0.0-4.3) % Seg Neutrophils # 1.2 L (1.8-7.7) K/mm3 Lymphocytes # (Manual) 1.0 L (1.2-5.4) K/mm3 Carbon Dioxide 21 L (22-30) mmol/L Creatinine 1.9 H (0.8-1.3) mg/dL Calcium 8.2 L (8.4-10.2) mg/dL
[2021-05-30] MEDS ORDERED: DARUNAVIR 800 MG PO SCH (11:00)
[2021-05-30] MEDS ORDERED: RITONAVIR 100 MG PO SCH (11:00)
[2021-05-30] MEDS ORDERED: LIDOCAINE VISCOUS 2% 15 ML ORAL LIQD PO PRN (11:06)
[2021-05-30] MEDS ORDERED: PNEUMOCOCCAL 23 Valent 0.5 ML VIAL IM ONE (12:00)
[2021-05-30] MEDS ORDERED: FLU VACC QUAD 2021-22(6MOS UP)/PF 60 MCG/0.5 ML SYRINGE IM ONE (12:00)
[2021-05-30] MEDS: RITONAVIR 100 MG TAB PO SCH (12:23)
[2021-05-30] MEDS: DARUNAVIR 800 MG TAB PO SCH (12:23)
--- NOTE | 2021-05-30 13:57 | Progress Note ---
Assessment and Plan Assessment and plan: #HIV/AIDS #Oropharyngeal candidiasis #Possible esophageal candidiasis #Counseling on medication compliance -Currently pending viral load, HIV RNA PCR, CD4 count, HIV1 genotype -Patient admits to inconsistent compliance with antiretrovirals and did not take antivirals for approximately 6 months earlier this year due to incarceration -ID on board; appreciate recs -Continue home antiretrovirals: Biktarvy and Prezcobix daily. Patient counseled at length about importance of medication compliance. Patient expressed understanding. -Continue IV micafungin 100 mg daily (started 05/29/2021) for approximately 3-5 days or until symptoms improve. Afterwards patient can be transitioned to p.o. fluconazole 400 mg daily x3 weeks. Supportive treatment with nystatin swish and swallow and oral lidocaine as needed. -Continue p.o. Bactrim double strength for daily prophylaxis -Patient counseled to follow-up with ID clinic post discharge. ID attending provided contact information. -Time: +20 minutes #Atypical chest pain -Low clinical suspicion for cardiac etiology given right-sided presentation. Likely secondary to oropharyngeal candidiasis. -Negative troponin x2 #CKD stage III -Creatinine 1.9 (baseline unknown) -Renally dose medications and avoid nephrotoxic medications. Counseled patient on avoiding NSAIDs, Motrin, Aleve, ibuprofen, etc. Patient expressed understanding. #DVT prophylaxis -Continue subcutaneous heparin 5000 units every 8 hours #Discharge planning -Possible discharge home on 06/02/2021 if the thrush improves. -Patient will be discharging home. Disposition Plan: Continue medical management Total Time Spent with Patient (Minutes): 30 History Interval history: No acute events over night. The patient denies fevers, chills, nausea, vomiting, abdominal pain, chest pain/pressure, shortness of breath, urinary symptoms, weakness, or confusion. Hospitalist Physical - Constitutional Vitals: Temp Pulse Resp BP Pulse Ox 99.5 F 61 16 137/87 97 05/30/21 12:03 05/30/21 12:03 05/30/21 12:03 05/30/21 12:03 05/30/21 12:03 General appearance: Present: no acute distress, cachectic - EENT Eyes: Present: PERRL, EOM intact ENT: hearing intact, clear oral mucosa, poor dentition, edentulous - Neck Neck: Present: normal ROM - Respiratory Respiratory effort: normal - Cardiovascular Rhythm: regular Heart Sounds: Present: S1 & S2 - Extremities Extremities: no ischemia, pulses intact, pulses symmetrical, No edema, normal temperature, normal color Peripheral Pulses: within normal limits - Abdominal General gastrointestinal: soft, non-tender, non-distended, normal bowel sounds - Integumentary Integumentary: Present: clear, warm, dry - Psychiatric Psychiatric: appropriate mood/affect, intact judgment & insight, memory intact, cooperative - Neurologic Neurologic: CNII-XII intact, moves all extremities - Allied Health Allied health notes reviewed: nursing HEART Score - HEART Score Troponin: Troponin T < 0.010 ng/mL (0.00-0.029) 05/29/21 13:38 Results - Labs CBC & Chem 7: 05/30/21 04:43 05/30/21 04:43 Labs: Laboratory Last Values WBC 3.3 K/mm3 (4.5-11.0) L 05/30/21 04:43 RBC 3.75 M/mm3 (3.65-5.03) 05/30/21 04:43 Hgb 11.0 gm/dl (11.8-15.2) L 05/30/21 04:43 Hct 34.0 % (35.5-45.6) L 05/30/21 04:43 MCV 91 fl (84-94) 05/30/21 04:43 MCH 29 pg (28-32) 05/30/21 04:43 MCHC 32 % (32-34) 05/30/21 04:43 RDW 16.1 % (13.2-15.2) H 05/30/21 04:43 Plt Count 191 K/mm3 (140-440) 05/30/21 04:43 Lymph % (Auto) 42.8 % (13.4-35.0) H 05/30/21 04:43 [place] % (Auto) 15.9 % (0.0-7.3) H 05/30/21 04:43 Eos % (Auto) 5.3 % (0.0-4.3) H 05/30/21 04:43 Baso % (Auto) 0.7 % (0.0-1.8) 05/30/21 04:43 Lymph # (Auto) 1.4 K/mm3 (1.2-5.4) 05/30/21 04:43 [place] # (Auto) 0.5 K/mm3 (0.0-0.8) 05/30/21 04:43 Eos # (Auto) 0.2 K/mm3 (0.0-0.4) 05/30/21 04:43 Baso # (Auto) 0.0 K/mm3 (0.0-0.1) 05/30/21 04:43 Add Manual Diff Complete 05/29/21 07:02 Total Counted 100 05/29/21 07:02 Seg Neutrophils % 35.3 % (40.0-70.0) L 05/30/21 04:43 Seg Neuts % (Manual) 53.0 % (40.0-70.0) 05/29/21 07:02 Lymphocytes % (Manual) 27.0 % (13.4-35.0) 05/29/21 07:02 Monocytes % (Manual) 14.0 % (0.0-7.3) H 05/29/21 07:02 Eosinophils % (Manual) 6.0 % (0.0-4.3) H 05/29/21 07:02 Nucleated RBC % Not Reportable 05/29/21 07:02 Seg Neutrophils # 1.2 K/mm3 (1.8-7.7) L 05/30/21 04:43 Seg Neutrophils # Man 2.0 K/mm3 (1.8-7.7) 05/29/21 07:02 Band Neutrophils # 0.0 K/mm3 05/29/21 07:02 Lymphocytes # (Manual) 1.0 K/mm3 (1.2-5.4) L 05/29/21 07:02 Abs React Lymphs (Man) 0.0 K/mm3 05/29/21 07:02 Monocytes # (Manual) 0.5 K/mm3 (0.0-0.8) 05/29/21 07:02 Eosinophils # (Manual) 0.2 K/mm3 (0.0-0.4) 05/29/21 07:02 Basophils # (Manual) 0.0 K/mm3 (0.0-0.1) 05/29/21 07:02 Metamyelocytes # 0.0 K/mm3 05/29/21 07:02 Myelocytes # 0.0 K/mm3 05/29/21 07:02 Promyelocytes # 0.0 K/mm3 05/29/21 07:02 Blast Cells # 0.0 K/mm3 05/29/21 07:02 WBC Morphology Not Reportable 05/29/21 07:02 Hypersegmented Neuts Not Reportable 05/29/21 07:02 Hyposegmented Neuts Not Reportable 05/29/21 07:02 Hypogranular Neuts Not Reportable 05/29/21 07:02 Smudge Cells Not Reportable 05/29/21 07:02 Toxic Granulation Not Reportable 05/29/21 07:02 Toxic Vacuolation Not Reportable 05/29/21 07:02 Dohle Bodies Not Reportable 05/29/21 07:02 Pelger-Huet Anomaly Not Reportable 05/29/21 07:02 Blossom Rods Not Reportable 05/29/21 07:02 Platelet Estimate Not Reportable 05/29/21 07:02 Clumped Platelets Not Reportable 05/29/21 07:02 Plt Clumps, EDTA Not Reportable 05/29/21 07:02 Large Platelets Not Reportable 05/29/21 07:02 Giant Platelets Not Reportable 05/29/21 07:02 Platelet Satelliting Not Reportable 05/29/21 07:02 Plt Morphology Comment Not Reportable 05/29/21 07:02 RBC Morphology Normal 05/29/21 07:02 Dimorphic RBCs Not Reportable 05/29/21 07:02 Polychromasia Not Reportable 05/29/21 07:02 Hypochromasia Not Reportable 05/29/21 07:02 Poikilocytosis Not Reportable 05/29/21 07:02 Anisocytosis Not Reportable 05/29/21 07:02 Microcytosis Not Reportable 05/29/21 07:02 Macrocytosis Not Reportable 05/29/21 07:02 Spherocytes Not Reportable 05/29/21 07:02 Pappenheimer Bodies Not Reportable 05/29/21 07:02 Sickle Cells Not Reportable 05/29/21 07:02 Target Cells Not Reportable 05/29/21 07:02 Tear Drop Cells Not Reportable 05/29/21 07:02 Ovalocytes Not Reportable 05/29/21 07:02 Helmet Cells Not Reportable 05/29/21 07:02 [place] Bodies Not Reportable 05/29/21 07:02 [place] Rings Not Reportable 05/29/21 07:02 [place] Cells Not Reportable 05/29/21 07:02 Bite Cells Not Reportable 05/29/21 07:02 Crenated Cell Not Reportable 05/29/21 07:02 Elliptocytes Not Reportable 05/29/21 07:02 Acanthocytes (Spur) Not Reportable 05/29/21 07:02 Rouleaux Not Reportable 05/29/21 07:02 Hemoglobin C Crystals Not Reportable 05/29/21 07:02 Schistocytes Not Reportable 05/29/21 07:02 Malaria parasites Not Reportable 05/29/21 07:02 Jeremiah Bodies Not Reportable 05/29/21 07:02 Hem Pathologist Commnt No 05/29/21 07:02 Sodium 139 mmol/L (137-145) 05/30/21 04:43 Potassium 4.3 mmol/L (3.6-5.0) 05/30/21 04:43 Chloride 105.8 mmol/L (98-107) 05/30/21 04:43 Carbon Dioxide 21 mmol/L (22-30) L 05/30/21 04:43 Anion Gap 17 mmol/L 05/30/21 04:43 BUN 15 mg/dL (9-20) 05/30/21 04:43 Creatinine 1.9 mg/dL (0.8-1.3) H 05/30/21 04:43 Estimated GFR 48 ml/min 05/30/21 04:43 BUN/Creatinine Ratio 8 % 05/30/21 04:43 Glucose 77 mg/dL (75-100) 05/30/21 04:43 Calcium 8.2 mg/dL (8.4-10.2) L 05/30/21 04:43 Magnesium 1.70 mg/dL (1.7-2.3) 05/30/21 04:43 Total Bilirubin 0.20 mg/dL (0.1-1.2) 05/29/21 00:26 AST 22 units/L (5-40) 05/29/21 00:26 ALT 17 units/L (7-56) 05/29/21 00:26 Alkaline Phosphatase 133 units/L (35-129) H 05/29/21 00:26 Troponin T < 0.010 ng/mL (0.00-0.029) 05/29/21 13:38 Total Protein 7.5 g/dL (6.3-8.2) 05/29/21 00:26 Albumin 3.5 g/dL (3.9-5) L 05/29/21 00:26 Albumin/Globulin Ratio 0.9 % 05/29/21 00:26 Lipase 60 units/L (13-60) 05/29/21 00:26 Ordoñez/IV: Voiding Method Toilet Active Medications - Current Medications Current Medications: Generic Name Dose Route Start Last Admin Trade Name Freq PRN Reason Stop Dose Admin Acetaminophen 650 mg 05/29/21 05:38 Acetaminophen 325 Mg Tab PO Q6H PRN Pain, Mild (1-3) Albuterol 2.5 mg 05/29/21 06:01 Albuterol 2.5 Mg/3 Ml Nebu IH Q4HRT PRN Shortness Of Breath Aspirin 81 mg 05/30/21 10:00 05/30/21 09:35 Aspirin 81 Mg Tab Chew PO 81 mg QDAY EVE Administration Atorvastatin Calcium 40 mg 05/29/21 22:00 05/29/21 22:40 Atorvastatin 40 Mg Tab PO 40 mg QHS EVE Administration Benzonatate 100 mg 05/29/21 05:40 Benzonatate 100 Mg Cap PO Q8HR PRN Cough Darunavir 800 mg 05/30/21 11:45 05/30/21 12:23 Darunavir 800 Mg Tab PO 800 mg QDAY EVE Administration Emtricitabine 200 mg 05/29/21 14:00 05/30/21 09:34 Emtricitabine 200 Mg Cap PO 200 mg QDAY EVE Administration Heparin Sodium (Porcine) 5,000 unit 05/29/21 06:00 05/30/21 06:41 Heparin 5,000 Unit/1 Ml Vial SUB-Q 5,000 unit Q8HR EVE Administration Sodium Chloride 1,000 mls @ 100 mls/hr 05/29/21 05:45 05/29/21 08:17 Nacl 0.9% 1000 Ml IV 100 mls/hr DIRECT EVE Administration Lactated Ringer's 1,000 mls @ 125 mls/hr 05/29/21 12:15 05/30/21 06:58 Lactated Ringers IV 125 mls/hr DIRECT EVE Administration Micafungin Sodium 100 mg/ 100 mls @ 100 mls/hr 05/29/21 14:00 05/29/21 17:47 Sodium Chloride IV 100 mls/hr Q24H EVE Administration Protocol Lidocaine HCl 15 ml 05/30/21 11:06 Lidocaine Viscous 2% 15 Ml Oral Liqd PO Q8HR PRN Mouth Pain Morphine Sulfate 2 mg 05/30/21 11:07 05/30/21 12:24 Morphine 4 Mg/1 Ml Inj IV 2 mg Q4H PRN Administration Chest Pain unrelieved by NTG Nitroglycerin 0.4 mg 05/29/21 05:38 Nitroglycerin 0.4 Mg Tab Subl SL Q5M PRN Chest Pain Nystatin 500,000 unit 05/30/21 14:00 Nystatin 500,000 Unit/5 Ml Oral Liqd PO QID EVE Pantoprazole Sodium 20 mg 05/29/21 10:00 05/30/21 09:33 Pantoprazole 20 Mg Tab PO 20 mg QDAY EVE Administration Ritonavir 100 mg 05/30/21 11:45 05/30/21 12:23 Ritonavir 100 Mg Tab PO 100 mg DAILY EVE Administration Sodium Chloride 10 ml 05/29/21 05:38 Sodium Chloride 0.9% 10 Ml Flush Syringe IV PRN PRN LINE FLUSH Tenofovir Disoproxil Fumarate 300 mg 05/29/21 14:00 05/30/21 09:34 Tenofovir 300 Mg Tab PO 300 mg QDAY EVE Administration Tramadol HCl 50 mg 05/29/21 05:38 Tramadol 50 Mg Tab PO Q6H PRN Pain, Moderate (4-6) Trimethoprim/Sulfamethoxazole 1 each 05/29/21 14:00 05/30/21 09:35 Sulfamethoxazole/Trimethoprim 800/160mg Ds Tab PO 1 each DAILY EVE Administration Protocol
[2021-05-30] MEDS: MICAFUNGIN 100 MG in SODIUM CHLORIDE 0.9% 100 ML IV SCH (15:03)
[2021-05-31] MEDS: MORPHINE 4 MG/1 ML INJ IV PRN ×4 (00:20→18:46)
[2021-05-31 06:11] LABS: Calcium 8.1 mg/dL (8.4-10.2)
[2021-05-31] MEDS: HEPARIN 5,000 UNIT/1 ML VIAL SUB-Q SCH ×3 (06:13→22:05)
[2021-05-31] MEDS ORDERED: CALCIUM GLUCONATE 2,000 MG in SODIUM CHLORIDE 0.9% 100 ML IV ONE (09:00)
[2021-05-31] MEDS: ASPIRIN 81 MG TAB CHEW PO SCH (11:53)
[2021-05-31] MEDS: PANTOPRAZOLE 20 MG TAB PO SCH (11:54)
[2021-05-31] MEDS: RITONAVIR 100 MG TAB PO SCH (11:54)
[2021-05-31] MEDS: SULFAMETHOXAZOLE/TRIMETHOPRIM 800/160MG DS TAB PO SCH (11:54)
[2021-05-31] MEDS: DARUNAVIR 800 MG TAB PO SCH (11:54)
[2021-05-31] MEDS: NYSTATIN 500,000 UNIT/5 ML ORAL LIQD PO SCH ×4 (11:54→22:05)
[2021-05-31] MEDS: EMTRICITABINE 200 MG CAP PO SCH (11:55)
[2021-05-31] MEDS: DOLUTEGRAVIR 50 MG TAB PO SCH (11:55)
[2021-05-31] MEDS: TENOFOVIR 300 MG TAB PO SCH (11:55)
--- NOTE | 2021-05-31 13:40 | Progress Note ---
Assessment and Plan Assessment and plan: #HIV/AIDS #Oropharyngeal candidiasis #Possible esophageal candidiasis #Counseling on medication compliance -Currently pending viral load, HIV RNA PCR, CD4 count, HIV1 genotype -Patient admits to inconsistent compliance with antiretrovirals and did not take antivirals for approximately 6 months earlier this year due to incarceration -ID on board; appreciate recs -Continue home antiretrovirals: Biktarvy and Prezcobix daily. Patient counseled at length about importance of medication compliance. Patient expressed understanding. -Continue IV micafungin 100 mg daily (started 05/29/2021) for approximately 3-5 days or until symptoms improve. Afterwards patient can be transitioned to p.o. fluconazole 400 mg daily x3 weeks. Supportive treatment with nystatin swish and swallow and oral lidocaine as needed. -Continue p.o. Bactrim double strength for daily prophylaxis -Patient counseled to follow-up with ID clinic post discharge. ID attending provided contact information. -Time: +20 minutes #Atypical chest pain -Low clinical suspicion for cardiac etiology given right-sided presentation. Likely secondary to oropharyngeal candidiasis. -Negative troponin x2 #CKD stage III -Creatinine 1.9 (baseline unknown) -Renally dose medications and avoid nephrotoxic medications. Counseled patient on avoiding NSAIDs, Motrin, Aleve, ibuprofen, etc. Patient expressed understanding. #DVT prophylaxis -Continue subcutaneous heparin 5000 units every 8 hours #Discharge planning -Possible discharge home on 06/02/2021 if the thrush improves. -Patient will be discharging home. Disposition Plan: Continue medical management Total Time Spent with Patient (Minutes): 25 History Interval history: No acute events over night. The patient denies fevers, chills, nausea, vomiting, abdominal pain, chest pain/pressure, shortness of breath, urinary symptoms, weakness, or confusion. Hospitalist Physical - Constitutional Vitals: Temp Pulse Resp BP Pulse Ox 98.0 F 57 L 18 132/95 98 05/31/21 11:26 05/31/21 11:26 05/31/21 11:26 05/31/21 11:26 05/31/21 11:26 General appearance: Present: no acute distress, cachectic - EENT Eyes: Present: PERRL, EOM intact ENT: hearing intact, poor dentition, thrush, edentulous - Neck Neck: Present: supple, normal ROM - Respiratory Respiratory effort: normal - Cardiovascular Rhythm: regular Heart Sounds: Present: S1 & S2 - Extremities Extremities: no ischemia, pulses intact, pulses symmetrical, No edema, normal temperature, normal color - Abdominal General gastrointestinal: soft, non-tender, non-distended, normal bowel sounds - Integumentary Integumentary: Present: clear, warm, dry - Psychiatric Psychiatric: appropriate mood/affect, intact judgment & insight, memory intact, cooperative - Neurologic Neurologic: CNII-XII intact, moves all extremities - Allied Health Allied health notes reviewed: nursing HEART Score - HEART Score Troponin: Troponin T < 0.010 ng/mL (0.00-0.029) 05/29/21 13:38 Results - Labs CBC & Chem 7: 05/30/21 04:43 05/31/21 04:57 Labs: Laboratory Last Values WBC 3.3 K/mm3 (4.5-11.0) L 05/30/21 04:43 RBC 3.75 M/mm3 (3.65-5.03) 05/30/21 04:43 Hgb 11.0 gm/dl (11.8-15.2) L 05/30/21 04:43 Hct 34.0 % (35.5-45.6) L 05/30/21 04:43 MCV 91 fl (84-94) 05/30/21 04:43 MCH 29 pg (28-32) 05/30/21 04:43 MCHC 32 % (32-34) 05/30/21 04:43 RDW 16.1 % (13.2-15.2) H 05/30/21 04:43 Plt Count 191 K/mm3 (140-440) 05/30/21 04:43 Lymph % (Auto) 42.8 % (13.4-35.0) H 05/30/21 04:43 [place] % (Auto) 15.9 % (0.0-7.3) H 05/30/21 04:43 Eos % (Auto) 5.3 % (0.0-4.3) H 05/30/21 04:43 Baso % (Auto) 0.7 % (0.0-1.8) 05/30/21 04:43 Lymph # (Auto) 1.4 K/mm3 (1.2-5.4) 05/30/21 04:43 [place] # (Auto) 0.5 K/mm3 (0.0-0.8) 05/30/21 04:43 Eos # (Auto) 0.2 K/mm3 (0.0-0.4) 05/30/21 04:43 Baso # (Auto) 0.0 K/mm3 (0.0-0.1) 05/30/21 04:43 Add Manual Diff Complete 05/29/21 07:02 Total Counted 100 05/29/21 07:02 Seg Neutrophils % 35.3 % (40.0-70.0) L 05/30/21 04:43 Seg Neuts % (Manual) 53.0 % (40.0-70.0) 05/29/21 07:02 Lymphocytes % (Manual) 27.0 % (13.4-35.0) 05/29/21 07:02 Monocytes % (Manual) 14.0 % (0.0-7.3) H 05/29/21 07:02 Eosinophils % (Manual) 6.0 % (0.0-4.3) H 05/29/21 07:02 Nucleated RBC % Not Reportable 05/29/21 07:02 Seg Neutrophils # 1.2 K/mm3 (1.8-7.7) L 05/30/21 04:43 Seg Neutrophils # Man 2.0 K/mm3 (1.8-7.7) 05/29/21 07:02 Band Neutrophils # 0.0 K/mm3 05/29/21 07:02 Lymphocytes # (Manual) 1.0 K/mm3 (1.2-5.4) L 05/29/21 07:02 Abs React Lymphs (Man) 0.0 K/mm3 05/29/21 07:02 Monocytes # (Manual) 0.5 K/mm3 (0.0-0.8) 05/29/21 07:02 Eosinophils # (Manual) 0.2 K/mm3 (0.0-0.4) 05/29/21 07:02 Basophils # (Manual) 0.0 K/mm3 (0.0-0.1) 05/29/21 07:02 Metamyelocytes # 0.0 K/mm3 05/29/21 07:02 Myelocytes # 0.0 K/mm3 05/29/21 07:02 Promyelocytes # 0.0 K/mm3 05/29/21 07:02 Blast Cells # 0.0 K/mm3 05/29/21 07:02 WBC Morphology Not Reportable 05/29/21 07:02 Hypersegmented Neuts Not Reportable 05/29/21 07:02 Hyposegmented Neuts Not Reportable 05/29/21 07:02 Hypogranular Neuts Not Reportable 05/29/21 07:02 Smudge Cells Not Reportable 05/29/21 07:02 Toxic Granulation Not Reportable 05/29/21 07:02 Toxic Vacuolation Not Reportable 05/29/21 07:02 Dohle Bodies Not Reportable 05/29/21 07:02 Pelger-Huet Anomaly Not Reportable 05/29/21 07:02 Blossom Rods Not Reportable 05/29/21 07:02 Platelet Estimate Not Reportable 05/29/21 07:02 Clumped Platelets Not Reportable 05/29/21 07:02 Plt Clumps, EDTA Not Reportable 05/29/21 07:02 Large Platelets Not Reportable 05/29/21 07:02 Giant Platelets Not Reportable 05/29/21 07:02 Platelet Satelliting Not Reportable 05/29/21 07:02 Plt Morphology Comment Not Reportable 05/29/21 07:02 RBC Morphology Normal 05/29/21 07:02 Dimorphic RBCs Not Reportable 05/29/21 07:02 Polychromasia Not Reportable 05/29/21 07:02 Hypochromasia Not Reportable 05/29/21 07:02 Poikilocytosis Not Reportable 05/29/21 07:02 Anisocytosis Not Reportable 05/29/21 07:02 Microcytosis Not Reportable 05/29/21 07:02 Macrocytosis Not Reportable 05/29/21 07:02 Spherocytes Not Reportable 05/29/21 07:02 Pappenheimer Bodies Not Reportable 05/29/21 07:02 Sickle Cells Not Reportable 05/29/21 07:02 Target Cells Not Reportable 05/29/21 07:02 Tear Drop Cells Not Reportable 05/29/21 07:02 Ovalocytes Not Reportable 05/29/21 07:02 Helmet Cells Not Reportable 05/29/21 07:02 [place] Bodies Not Reportable 05/29/21 07:02 [place] Rings Not Reportable 05/29/21 07:02 [place] Cells Not Reportable 05/29/21 07:02 Bite Cells Not Reportable 05/29/21 07:02 Crenated Cell Not Reportable 05/29/21 07:02 Elliptocytes Not Reportable 05/29/21 07:02 Acanthocytes (Spur) Not Reportable 05/29/21 07:02 Rouleaux Not Reportable 05/29/21 07:02 Hemoglobin C Crystals Not Reportable 05/29/21 07:02 Schistocytes Not Reportable 05/29/21 07:02 Malaria parasites Not Reportable 05/29/21 07:02 Jeremiah Bodies Not Reportable 05/29/21 07:02 Hem Pathologist Commnt No 05/29/21 07:02 Sodium 137 mmol/L (137-145) 05/31/21 04:57 Potassium 4.5 mmol/L (3.6-5.0) 05/31/21 04:57 Chloride 107.3 mmol/L (98-107) H 05/31/21 04:57 Carbon Dioxide 18 mmol/L (22-30) L 05/31/21 04:57 Anion Gap 16 mmol/L 05/31/21 04:57 BUN 14 mg/dL (9-20) 05/31/21 04:57 Creatinine 1.7 mg/dL (0.8-1.3) H 05/31/21 04:57 Estimated GFR 55 ml/min 05/31/21 04:57 BUN/Creatinine Ratio 8 % 05/31/21 04:57 Glucose 90 mg/dL (75-100) 05/31/21 04:57 Calcium 8.1 mg/dL (8.4-10.2) L 05/31/21 04:57 Magnesium 1.70 mg/dL (1.7-2.3) 05/30/21 04:43 Total Bilirubin 0.20 mg/dL (0.1-1.2) 05/29/21 00:26 AST 22 units/L (5-40) 05/29/21 00:26 ALT 17 units/L (7-56) 05/29/21 00:26 Alkaline Phosphatase 133 units/L (35-129) H 05/29/21 00:26 Troponin T < 0.010 ng/mL (0.00-0.029) 05/29/21 13:38 Total Protein 7.5 g/dL (6.3-8.2) 05/29/21 00:26 Albumin 3.5 g/dL (3.9-5) L 05/29/21 00:26 Albumin/Globulin Ratio 0.9 % 05/29/21 00:26 Lipase 60 units/L (13-60) 05/29/21 00:26 Ordoñez/IV: Voiding Method Toilet Active Medications - Current Medications Current Medications: Generic Name Dose Route Start Last Admin Trade Name Freq PRN Reason Stop Dose Admin Acetaminophen 650 mg 05/29/21 05:38 Acetaminophen 325 Mg Tab PO Q6H PRN Pain, Mild (1-3) Albuterol 2.5 mg 05/29/21 06:01 Albuterol 2.5 Mg/3 Ml Nebu IH Q4HRT PRN Shortness Of Breath Aspirin 81 mg 05/30/21 10:00 05/31/21 11:53 Aspirin 81 Mg Tab Chew PO 81 mg QDAY EVE Administration Atorvastatin Calcium 40 mg 05/29/21 22:00 05/30/21 22:22 Atorvastatin 40 Mg Tab PO 40 mg QHS EVE Administration Benzonatate 100 mg 05/29/21 05:40 Benzonatate 100 Mg Cap PO Q8HR PRN Cough Darunavir 800 mg 05/30/21 11:45 05/31/21 11:54 Darunavir 800 Mg Tab PO 800 mg QDAY EVE Administration Emtricitabine 200 mg 05/29/21 14:00 05/31/21 11:55 Emtricitabine 200 Mg Cap PO 200 mg QDAY EVE Administration Heparin Sodium (Porcine) 5,000 unit 05/29/21 06:00 05/31/21 06:13 Heparin 5,000 Unit/1 Ml Vial SUB-Q 5,000 unit Q8HR EVE Administration Sodium Chloride 1,000 mls @ 100 mls/hr 05/29/21 05:45 05/29/21 08:17 Nacl 0.9% 1000 Ml IV 100 mls/hr DIRECT EVE Administration Lactated Ringer's 1,000 mls @ 125 mls/hr 05/29/21 12:15 05/30/21 18:59 Lactated Ringers IV 125 mls/hr DIRECT EVE Administration Micafungin Sodium 100 mg/ 100 mls @ 100 mls/hr 05/29/21 14:00 05/30/21 15:03 Sodium Chloride IV 100 mls/hr Q24H EVE Administration Protocol Lidocaine HCl 15 ml 05/30/21 11:06 Lidocaine Viscous 2% 15 Ml Oral Liqd PO Q8HR PRN Mouth Pain Morphine Sulfate 2 mg 05/30/21 11:07 05/31/21 11:52 Morphine 4 Mg/1 Ml Inj IV 2 mg Q4H PRN Administration Chest Pain unrelieved by NTG Nitroglycerin 0.4 mg 05/29/21 05:38 Nitroglycerin 0.4 Mg Tab Subl SL Q5M PRN Chest Pain Nystatin 500,000 unit 05/30/21 14:00 05/31/21 11:54 Nystatin 500,000 Unit/5 Ml Oral Liqd PO 500,000 unit QID EVE Administration Pantoprazole Sodium 20 mg 05/29/21 10:00 05/31/21 11:54 Pantoprazole 20 Mg Tab PO 20 mg QDAY EVE Administration Ritonavir 100 mg 05/30/21 11:45 05/31/21 11:54 Ritonavir 100 Mg Tab PO 100 mg DAILY EVE Administration Sodium Chloride 10 ml 05/29/21 05:38 Sodium Chloride 0.9% 10 Ml Flush Syringe IV PRN PRN LINE FLUSH Tenofovir Disoproxil Fumarate 300 mg 05/29/21 14:00 05/31/21 11:55 Tenofovir 300 Mg Tab PO 300 mg QDAY EVE Administration Tramadol HCl 50 mg 05/29/21 05:38 Tramadol 50 Mg Tab PO Q6H PRN Pain, Moderate (4-6) Trimethoprim/Sulfamethoxazole 1 each 05/29/21 14:00 05/31/21 11:54 Sulfamethoxazole/Trimethoprim 800/160mg Ds Tab PO 1 each DAILY EVE Administration Protocol
[2021-05-31] MEDS: MICAFUNGIN 100 MG in SODIUM CHLORIDE 0.9% 100 ML IV SCH (14:37)
[2021-06-01] MEDS: MORPHINE 4 MG/1 ML INJ IV PRN ×6 (00:36→23:16)
[2021-06-01] MEDS: HEPARIN 5,000 UNIT/1 ML VIAL SUB-Q SCH ×3 (05:30→23:08)
[2021-06-01 08:05] LABS: Basophils % (Auto) 0.4 % (0.0-1.8); Eosinophils # (Auto) 0.2 K/mm3 (0.0-0.4); Hematocrit 36.1 % (35.5-45.6); Hemoglobin 11.7 gm/dl (11.8-15.2); Lymphocytes # (Auto) 1.3 K/mm3 (1.2-5.4); Lymphocytes % (Auto) 33.5 % (13.4-35.0); Mean Corpuscular HGB Conc 32 % (32-34); Mean Corpuscular Volume 92 fl (84-94); Monocytes # (Auto) 0.5 K/mm3 (0.0-0.8); Monocytes % (Auto) 14.3 % (0.0-7.3); Platelet Count 173 K/mm3 (140-440); Red Blood Count 3.92 M/mm3 (3.65-5.03); Red Cell Distribution Width 15.8 % (13.2-15.2)
[2021-06-01 08:27] LABS: Calcium 8.2 mg/dL (8.4-10.2)
[2021-06-01] MEDS: RITONAVIR 100 MG TAB PO SCH (09:39)
[2021-06-01] MEDS: DARUNAVIR 800 MG TAB PO SCH (09:39)
[2021-06-01] MEDS: PANTOPRAZOLE 20 MG TAB PO SCH (09:39)
[2021-06-01] MEDS: EMTRICITABINE 200 MG CAP PO SCH (09:39)
[2021-06-01] MEDS: DOLUTEGRAVIR 50 MG TAB PO SCH (09:39)
[2021-06-01] MEDS: ASPIRIN 81 MG TAB CHEW PO SCH (09:39)
[2021-06-01] MEDS: NYSTATIN 500,000 UNIT/5 ML ORAL LIQD PO SCH ×4 (09:40→23:17)
[2021-06-01] MEDS: TENOFOVIR 300 MG TAB PO SCH (09:43)
[2021-06-01] MEDS: SULFAMETHOXAZOLE/TRIMETHOPRIM 800/160MG DS TAB PO SCH (10:12)
[2021-06-01] MEDS ORDERED: CALCIUM GLUCONATE 2,000 MG in SODIUM CHLORIDE 0.9% 100 ML IV ONE (12:00)
--- NOTE | 2021-06-01 12:54 | Progress Note ---
Assessment and Plan Assessment and plan: #HIV/AIDS #Oropharyngeal candidiasis #Possible esophageal candidiasis #Counseling on medication compliance -Currently pending viral load, HIV RNA PCR, CD4 count, HIV1 genotype -Patient admits to inconsistent compliance with antiretrovirals and did not take antivirals for approximately 6 months earlier this year due to incarceration -ID on board; appreciate recs -Continue home antiretrovirals: Biktarvy and Prezcobix daily. Patient counseled at length about importance of medication compliance. Patient expressed understanding. -Continue IV micafungin 100 mg daily (started 05/29/2021) for approximately 3-5 days or until symptoms improve. Afterwards patient can be transitioned to p.o. fluconazole 400 mg daily x3 weeks. Supportive treatment with nystatin swish and swallow and oral lidocaine as needed. -Continue p.o. Bactrim double strength for daily prophylaxis -Patient counseled to follow-up with ID clinic post discharge. ID attending provided contact information. -Time: +20 minutes #Atypical chest pain -Low clinical suspicion for cardiac etiology given right-sided presentation. Likely secondary to oropharyngeal candidiasis. -Negative troponin x2 #CKD stage III -Creatinine 1.9 (baseline unknown) -Renally dose medications and avoid nephrotoxic medications. Counseled patient on avoiding NSAIDs, Motrin, Aleve, ibuprofen, etc. Patient expressed understanding. #Severe protein caloric malnutrition -BMI 18.9 -Consulting nutrition for further evaluation; pending recommendations #DVT prophylaxis -Continue subcutaneous heparin 5000 units every 8 hours #Discharge planning -Possible discharge home on 06/02/2021 if the thrush improves. -Patient will be discharging home. Disposition Plan: Continue medical management Disposition Plan: Continue medical management. Pending possible discharge. Total Time Spent with Patient (Minutes): 30 History Interval history: No acute events over night. The patient denies fevers, chills, nausea, vomiting, abdominal pain, chest pain/pressure, shortness of breath, urinary symptoms, weakness, or confusion. Hospitalist Physical - Constitutional Vitals: Temp Pulse Resp BP Pulse Ox 97.9 F 58 L 20 143/89 98 06/01/21 07:33 06/01/21 07:33 06/01/21 07:33 06/01/21 07:33 06/01/21 07:50 General appearance: Present: no acute distress, cachectic - EENT Eyes: Present: PERRL, EOM intact ENT: hearing intact, poor dentition, thrush, edentulous - Neck Neck: Present: supple, normal ROM - Respiratory Respiratory effort: normal - Cardiovascular Rhythm: regular Heart Sounds: Present: S1 & S2 - Extremities Extremities: no ischemia, pulses intact, pulses symmetrical, No edema, normal temperature, normal color Peripheral Pulses: within normal limits - Abdominal General gastrointestinal: soft, non-tender, non-distended, normal bowel sounds - Integumentary Integumentary: Present: clear, warm, dry - Psychiatric Psychiatric: appropriate mood/affect, intact judgment & insight, memory intact, cooperative - Neurologic Neurologic: CNII-XII intact HEART Score - HEART Score Troponin: Troponin T < 0.010 ng/mL (0.00-0.029) 05/29/21 13:38 Results - Labs CBC & Chem 7: 06/01/21 07:13 06/01/21 07:13 Labs: Laboratory Last Values WBC 3.8 K/mm3 (4.5-11.0) L 06/01/21 07:13 RBC 3.92 M/mm3 (3.65-5.03) 06/01/21 07:13 Hgb 11.7 gm/dl (11.8-15.2) L 06/01/21 07:13 Hct 36.1 % (35.5-45.6) 06/01/21 07:13 MCV 92 fl (84-94) 06/01/21 07:13 MCH 30 pg (28-32) 06/01/21 07:13 MCHC 32 % (32-34) 06/01/21 07:13 RDW 15.8 % (13.2-15.2) H 06/01/21 07:13 Plt Count 173 K/mm3 (140-440) 06/01/21 07:13 Lymph % (Auto) 33.5 % (13.4-35.0) 06/01/21 07:13 [place] % (Auto) 14.3 % (0.0-7.3) H 06/01/21 07:13 Eos % (Auto) 6.0 % (0.0-4.3) H 06/01/21 07:13 Baso % (Auto) 0.4 % (0.0-1.8) 06/01/21 07:13 Lymph # (Auto) 1.3 K/mm3 (1.2-5.4) 06/01/21 07:13 [place] # (Auto) 0.5 K/mm3 (0.0-0.8) 06/01/21 07:13 Eos # (Auto) 0.2 K/mm3 (0.0-0.4) 06/01/21 07:13 Baso # (Auto) 0.0 K/mm3 (0.0-0.1) 06/01/21 07:13 Add Manual Diff Complete 05/29/21 07:02 Total Counted 100 05/29/21 07:02 Seg Neutrophils % 45.8 % (40.0-70.0) 06/01/21 07:13 Seg Neuts % (Manual) 53.0 % (40.0-70.0) 05/29/21 07:02 Lymphocytes % (Manual) 27.0 % (13.4-35.0) 05/29/21 07:02 Monocytes % (Manual) 14.0 % (0.0-7.3) H 05/29/21 07:02 Eosinophils % (Manual) 6.0 % (0.0-4.3) H 05/29/21 07:02 Nucleated RBC % Not Reportable 05/29/21 07:02 Seg Neutrophils # 1.7 K/mm3 (1.8-7.7) L 06/01/21 07:13 Seg Neutrophils # Man 2.0 K/mm3 (1.8-7.7) 05/29/21 07:02 Band Neutrophils # 0.0 K/mm3 05/29/21 07:02 Lymphocytes # (Manual) 1.0 K/mm3 (1.2-5.4) L 05/29/21 07:02 Abs React Lymphs (Man) 0.0 K/mm3 05/29/21 07:02 Monocytes # (Manual) 0.5 K/mm3 (0.0-0.8) 05/29/21 07:02 Eosinophils # (Manual) 0.2 K/mm3 (0.0-0.4) 05/29/21 07:02 Basophils # (Manual) 0.0 K/mm3 (0.0-0.1) 05/29/21 07:02 Metamyelocytes # 0.0 K/mm3 05/29/21 07:02 Myelocytes # 0.0 K/mm3 05/29/21 07:02 Promyelocytes # 0.0 K/mm3 05/29/21 07:02 Blast Cells # 0.0 K/mm3 05/29/21 07:02 WBC Morphology Not Reportable 05/29/21 07:02 Hypersegmented Neuts Not Reportable 05/29/21 07:02 Hyposegmented Neuts Not Reportable 05/29/21 07:02 Hypogranular Neuts Not Reportable 05/29/21 07:02 Smudge Cells Not Reportable 05/29/21 07:02 Toxic Granulation Not Reportable 05/29/21 07:02 Toxic Vacuolation Not Reportable 05/29/21 07:02 Dohle Bodies Not Reportable 05/29/21 07:02 Pelger-Huet Anomaly Not Reportable 05/29/21 07:02 Blossom Rods Not Reportable 05/29/21 07:02 Platelet Estimate Not Reportable 05/29/21 07:02 Clumped Platelets Not Reportable 05/29/21 07:02 Plt Clumps, EDTA Not Reportable 05/29/21 07:02 Large Platelets Not Reportable 05/29/21 07:02 Giant Platelets Not Reportable 05/29/21 07:02 Platelet Satelliting Not Reportable 05/29/21 07:02 Plt Morphology Comment Not Reportable 05/29/21 07:02 RBC Morphology Normal 05/29/21 07:02 Dimorphic RBCs Not Reportable 05/29/21 07:02 Polychromasia Not Reportable 05/29/21 07:02 Hypochromasia Not Reportable 05/29/21 07:02 Poikilocytosis Not Reportable 05/29/21 07:02 Anisocytosis Not Reportable 05/29/21 07:02 Microcytosis Not Reportable 05/29/21 07:02 Macrocytosis Not Reportable 05/29/21 07:02 Spherocytes Not Reportable 05/29/21 07:02 Pappenheimer Bodies Not Reportable 05/29/21 07:02 Sickle Cells Not Reportable 05/29/21 07:02 Target Cells Not Reportable 05/29/21 07:02 Tear Drop Cells Not Reportable 05/29/21 07:02 Ovalocytes Not Reportable 05/29/21 07:02 Helmet Cells Not Reportable 05/29/21 07:02 Greer-[place] Bodies Not Reportable 05/29/21 07:02 [place] Rings Not Reportable 05/29/21 07:02 Amy Cells Not Reportable 05/29/21 07:02 Bite Cells Not Reportable 05/29/21 07:02 Crenated Cell Not Reportable 05/29/21 07:02 Elliptocytes Not Reportable 05/29/21 07:02 Acanthocytes (Spur) Not Reportable 05/29/21 07:02 Rouleaux Not Reportable 05/29/21 07:02 Hemoglobin C Crystals Not Reportable 05/29/21 07:02 Schistocytes Not Reportable 05/29/21 07:02 Malaria parasites Not Reportable 05/29/21 07:02 Jeremiah Bodies Not Reportable 05/29/21 07:02 Hem Pathologist Commnt No 05/29/21 07:02 Sodium 138 mmol/L (137-145) 06/01/21 07:13 Potassium 4.4 mmol/L (3.6-5.0) 06/01/21 07:13 Chloride 106.5 mmol/L (98-107) 06/01/21 07:13 Carbon Dioxide 22 mmol/L (22-30) 06/01/21 07:13 Anion Gap 14 mmol/L 06/01/21 07:13 BUN 14 mg/dL (9-20) 06/01/21 07:13 Creatinine 1.7 mg/dL (0.8-1.3) H 06/01/21 07:13 Estimated GFR 55 ml/min 06/01/21 07:13 BUN/Creatinine Ratio 8 % 06/01/21 07:13 Glucose 82 mg/dL (75-100) 06/01/21 07:13 Calcium 8.2 mg/dL (8.4-10.2) L 06/01/21 07:13 Magnesium 1.70 mg/dL (1.7-2.3) 05/30/21 04:43 Total Bilirubin 0.20 mg/dL (0.1-1.2) 05/29/21 00:26 AST 22 units/L (5-40) 05/29/21 00:26 ALT 17 units/L (7-56) 05/29/21 00:26 Alkaline Phosphatase 133 units/L (35-129) H 05/29/21 00:26 Troponin T < 0.010 ng/mL (0.00-0.029) 05/29/21 13:38 Total Protein 7.5 g/dL (6.3-8.2) 05/29/21 00:26 Albumin 3.5 g/dL (3.9-5) L 05/29/21 00:26 Albumin/Globulin Ratio 0.9 % 05/29/21 00:26 Lipase 60 units/L (13-60) 05/29/21 00:26 Ordoñez/IV: Voiding Method Toilet Active Medications - Current Medications Current Medications: Generic Name Dose Route Start Last Admin Trade Name Freq PRN Reason Stop Dose Admin Acetaminophen 650 mg 05/29/21 05:38 Acetaminophen 325 Mg Tab PO Q6H PRN Pain, Mild (1-3) Albuterol 2.5 mg 05/29/21 06:01 Albuterol 2.5 Mg/3 Ml Nebu IH Q4HRT PRN Shortness Of Breath Aspirin 81 mg 05/30/21 10:00 06/01/21 09:39 Aspirin 81 Mg Tab Chew PO 81 mg QDAY EVE Administration Atorvastatin Calcium 40 mg 05/29/21 22:00 05/31/21 22:05 Atorvastatin 40 Mg Tab PO 40 mg QHS EVE Administration Benzonatate 100 mg 05/29/21 05:40 Benzonatate 100 Mg Cap PO Q8HR PRN Cough Darunavir 800 mg 05/30/21 11:45 06/01/21 09:39 Darunavir 800 Mg Tab PO 800 mg QDAY EVE Administration Emtricitabine 200 mg 05/29/21 14:00 06/01/21 09:39 Emtricitabine 200 Mg Cap PO 200 mg QDAY EVE Administration Heparin Sodium (Porcine) 5,000 unit 05/29/21 06:00 06/01/21 05:30 Heparin 5,000 Unit/1 Ml Vial SUB-Q 5,000 unit Q8HR EVE Administration Sodium Chloride 1,000 mls @ 100 mls/hr 05/29/21 05:45 05/29/21 08:17 Nacl 0.9% 1000 Ml IV 100 mls/hr DIRECT EVE Administration Lactated Ringer's 1,000 mls @ 125 mls/hr 05/29/21 12:15 05/30/21 18:59 Lactated Ringers IV 125 mls/hr DIRECT EVE Administration Micafungin Sodium 100 mg/ 100 mls @ 100 mls/hr 05/29/21 14:00 05/31/21 14:37 Sodium Chloride IV 100 mls/hr Q24H EVE Administration Protocol Lidocaine HCl 15 ml 05/30/21 11:06 Lidocaine Viscous 2% 15 Ml Oral Liqd PO Q8HR PRN Mouth Pain Morphine Sulfate 2 mg 05/30/21 11:07 06/01/21 09:40 Morphine 4 Mg/1 Ml Inj IV 2 mg Q4H PRN Administration Chest Pain unrelieved by NTG Nitroglycerin 0.4 mg 05/29/21 05:38 Nitroglycerin 0.4 Mg Tab Subl SL Q5M PRN Chest Pain Nystatin 500,000 unit 05/30/21 14:00 06/01/21 09:40 Nystatin 500,000 Unit/5 Ml Oral Liqd PO 500,000 unit QID EVE Administration Pantoprazole Sodium 20 mg 05/29/21 10:00 06/01/21 09:39 Pantoprazole 20 Mg Tab PO 20 mg QDAY EVE Administration Ritonavir 100 mg 05/30/21 11:45 06/01/21 09:39 Ritonavir 100 Mg Tab PO 100 mg DAILY EVE Administration Sodium Chloride 10 ml 05/29/21 05:38 06/01/21 09:43 Sodium Chloride 0.9% 10 Ml Flush Syringe IV 10 ml PRN PRN Administration LINE FLUSH Tenofovir Disoproxil Fumarate 300 mg 05/29/21 14:00 06/01/21 09:43 Tenofovir 300 Mg Tab PO Not Given QDAY EVE Tramadol HCl 50 mg 05/29/21 05:38 Tramadol 50 Mg Tab PO Q6H PRN Pain, Moderate (4-6) Trimethoprim/Sulfamethoxazole 1 each 05/29/21 14:00 06/01/21 10:12 Sulfamethoxazole/Trimethoprim 800/160mg Ds Tab PO 1 each DAILY EVE Administration Protocol
[2021-06-01] MEDS: MICAFUNGIN 100 MG in SODIUM CHLORIDE 0.9% 100 ML IV SCH (15:42)
[2021-06-02] MEDS: HEPARIN 5,000 UNIT/1 ML VIAL SUB-Q SCH ×3 (06:31→21:33)
[2021-06-02] MEDS: MORPHINE 4 MG/1 ML INJ IV PRN ×4 (06:49→20:44)
[2021-06-02] MEDS: TENOFOVIR 300 MG TAB PO SCH (09:20)
[2021-06-02] MEDS: EMTRICITABINE 200 MG CAP PO SCH (09:20)
[2021-06-02] MEDS: SULFAMETHOXAZOLE/TRIMETHOPRIM 800/160MG DS TAB PO SCH (09:21)
[2021-06-02] MEDS: PANTOPRAZOLE 20 MG TAB PO SCH (09:21)
[2021-06-02] MEDS: RITONAVIR 100 MG TAB PO SCH (09:21)
[2021-06-02] MEDS: DARUNAVIR 800 MG TAB PO SCH (09:21)
[2021-06-02] MEDS: NYSTATIN 500,000 UNIT/5 ML ORAL LIQD PO SCH ×4 (09:21→21:33)
[2021-06-02] MEDS: DOLUTEGRAVIR 50 MG TAB PO SCH (09:21)
[2021-06-02] MEDS: ASPIRIN 81 MG TAB CHEW PO SCH (09:21)
[2021-06-02] MEDS ORDERED: amLODIPine 5 MG TAB PO SCH (10:00)
[2021-06-02 11:52] LABS: Calcium 8.5 mg/dL (8.4-10.2)
--- NOTE | 2021-06-02 12:59 | Progress Note ---
Assessment and Plan Assessment and plan: #HIV/AIDS #Oropharyngeal candidiasis #Possible esophageal candidiasis #Counseling on medication compliance -Currently pending viral load, HIV RNA PCR, CD4 count, HIV1 genotype -Patient admits to inconsistent compliance with antiretrovirals and did not take antivirals for approximately 6 months earlier this year due to incarceration -ID on board; appreciate recs -Continue home antiretrovirals: Biktarvy and Prezcobix daily. Patient counseled at length about importance of medication compliance. Patient expressed understanding. -Continue IV micafungin 100 mg daily (started 05/29/2021) for approximately 3-5 days or until symptoms improve. Afterwards patient can be transitioned to p.o. fluconazole 400 mg daily x3 weeks. Supportive treatment with nystatin swish and swallow and oral lidocaine as needed. -No improvement in thrush. Pending infectious disease recommendations for possible antibiotic changes. -Continue p.o. Bactrim double strength for daily prophylaxis -Patient counseled to follow-up with ID clinic post discharge. ID attending provided contact information. -Time: +20 minutes #Atypical chest pain-resolved -Low clinical suspicion for cardiac etiology given right-sided presentation. Likely secondary to oropharyngeal candidiasis. -Negative troponin x2 #CKD stage III-stable -Creatinine 1.9 (baseline unknown) -Renally dose medications and avoid nephrotoxic medications. Counseled patient on avoiding NSAIDs, Motrin, Aleve, ibuprofen, etc. Patient expressed understanding. #Underweight -BMI 18.9 -Consulting nutrition for further evaluation; appreciate recommendation #DVT prophylaxis -Continue subcutaneous heparin 5000 units every 8 hours #Discharge planning -Patient will be discharging home when medically cleared. #Advanced care planning -Disease education conducted, care plan discussed, diagnoses discussed, prognosis discussed, and patient acknowledges understanding with care plan -Time: +20 minutes Disposition Plan: Continue medical management Total Time Spent with Patient (Minutes): 35 History Interval history: No acute events over night. The patient denies fevers, chills, nausea, vomiting, abdominal pain, chest pain/pressure, shortness of breath, urinary symptoms, weakness, or confusion. Hospitalist Physical - Constitutional Vitals: Temp Pulse Resp BP Pulse Ox 97.8 F 87 17 118/74 97 06/02/21 11:07 06/02/21 11:07 06/02/21 11:36 06/02/21 11:07 06/02/21 11:07 General appearance: Present: no acute distress, cachectic - EENT Eyes: Present: PERRL, EOM intact ENT: hearing intact, poor dentition, thrush, edentulous - Neck Neck: Present: supple, normal ROM - Respiratory Respiratory effort: normal - Cardiovascular Rhythm: regular Heart Sounds: Present: S1 & S2 - Extremities Extremities: no ischemia, pulses intact, pulses symmetrical, No edema, normal temperature, normal color Peripheral Pulses: within normal limits - Abdominal General gastrointestinal: soft, non-tender, non-distended, normal bowel sounds - Integumentary Integumentary: Present: clear, warm, dry - Psychiatric Psychiatric: appropriate mood/affect, intact judgment & insight, memory intact, cooperative - Neurologic Neurologic: CNII-XII intact, moves all extremities - Allied Health Allied health notes reviewed: nursing HEART Score - HEART Score Troponin: Troponin T < 0.010 ng/mL (0.00-0.029) 05/29/21 13:38 Results - Labs CBC & Chem 7: 06/01/21 07:13 06/02/21 10:33 Labs: Laboratory Last Values WBC 3.8 K/mm3 (4.5-11.0) L 06/01/21 07:13 RBC 3.92 M/mm3 (3.65-5.03) 06/01/21 07:13 Hgb 11.7 gm/dl (11.8-15.2) L 06/01/21 07:13 Hct 36.1 % (35.5-45.6) 06/01/21 07:13 MCV 92 fl (84-94) 06/01/21 07:13 MCH 30 pg (28-32) 06/01/21 07:13 MCHC 32 % (32-34) 06/01/21 07:13 RDW 15.8 % (13.2-15.2) H 06/01/21 07:13 Plt Count 173 K/mm3 (140-440) 06/01/21 07:13 Lymph % (Auto) 33.5 % (13.4-35.0) 06/01/21 07:13 [place] % (Auto) 14.3 % (0.0-7.3) H 06/01/21 07:13 Eos % (Auto) 6.0 % (0.0-4.3) H 06/01/21 07:13 Baso % (Auto) 0.4 % (0.0-1.8) 06/01/21 07:13 Lymph # (Auto) 1.3 K/mm3 (1.2-5.4) 06/01/21 07:13 [place] # (Auto) 0.5 K/mm3 (0.0-0.8) 06/01/21 07:13 Eos # (Auto) 0.2 K/mm3 (0.0-0.4) 06/01/21 07:13 Baso # (Auto) 0.0 K/mm3 (0.0-0.1) 06/01/21 07:13 Add Manual Diff Complete 05/29/21 07:02 Total Counted 100 05/29/21 07:02 Seg Neutrophils % 45.8 % (40.0-70.0) 06/01/21 07:13 Seg Neuts % (Manual) 53.0 % (40.0-70.0) 05/29/21 07:02 Lymphocytes % (Manual) 27.0 % (13.4-35.0) 05/29/21 07:02 Monocytes % (Manual) 14.0 % (0.0-7.3) H 05/29/21 07:02 Eosinophils % (Manual) 6.0 % (0.0-4.3) H 05/29/21 07:02 Nucleated RBC % Not Reportable 05/29/21 07:02 Seg Neutrophils # 1.7 K/mm3 (1.8-7.7) L 06/01/21 07:13 Seg Neutrophils # Man 2.0 K/mm3 (1.8-7.7) 05/29/21 07:02 Band Neutrophils # 0.0 K/mm3 05/29/21 07:02 Lymphocytes # (Manual) 1.0 K/mm3 (1.2-5.4) L 05/29/21 07:02 Abs React Lymphs (Man) 0.0 K/mm3 05/29/21 07:02 Monocytes # (Manual) 0.5 K/mm3 (0.0-0.8) 05/29/21 07:02 Eosinophils # (Manual) 0.2 K/mm3 (0.0-0.4) 05/29/21 07:02 Basophils # (Manual) 0.0 K/mm3 (0.0-0.1) 05/29/21 07:02 Metamyelocytes # 0.0 K/mm3 05/29/21 07:02 Myelocytes # 0.0 K/mm3 05/29/21 07:02 Promyelocytes # 0.0 K/mm3 05/29/21 07:02 Blast Cells # 0.0 K/mm3 05/29/21 07:02 WBC Morphology Not Reportable 05/29/21 07:02 Hypersegmented Neuts Not Reportable 05/29/21 07:02 Hyposegmented Neuts Not Reportable 05/29/21 07:02 Hypogranular Neuts Not Reportable 05/29/21 07:02 Smudge Cells Not Reportable 05/29/21 07:02 Toxic Granulation Not Reportable 05/29/21 07:02 Toxic Vacuolation Not Reportable 05/29/21 07:02 Dohle Bodies Not Reportable 05/29/21 07:02 Pelger-Huet Anomaly Not Reportable 05/29/21 07:02 Blossom Rods Not Reportable 05/29/21 07:02 Platelet Estimate Not Reportable 05/29/21 07:02 Clumped Platelets Not Reportable 05/29/21 07:02 Plt Clumps, EDTA Not Reportable 05/29/21 07:02 Large Platelets Not Reportable 05/29/21 07:02 Giant Platelets Not Reportable 05/29/21 07:02 Platelet Satelliting Not Reportable 05/29/21 07:02 Plt Morphology Comment Not Reportable 05/29/21 07:02 RBC Morphology Normal 05/29/21 07:02 Dimorphic RBCs Not Reportable 05/29/21 07:02 Polychromasia Not Reportable 05/29/21 07:02 Hypochromasia Not Reportable 05/29/21 07:02 Poikilocytosis Not Reportable 05/29/21 07:02 Anisocytosis Not Reportable 05/29/21 07:02 Microcytosis Not Reportable 05/29/21 07:02 Macrocytosis Not Reportable 05/29/21 07:02 Spherocytes Not Reportable 05/29/21 07:02 Pappenheimer Bodies Not Reportable 05/29/21 07:02 Sickle Cells Not Reportable 05/29/21 07:02 Target Cells Not Reportable 05/29/21 07:02 Tear Drop Cells Not Reportable 05/29/21 07:02 Ovalocytes Not Reportable 05/29/21 07:02 Helmet Cells Not Reportable 05/29/21 07:02 Gre[place] Bodies Not Reportable 05/29/21 07:02 [place] Rings Not Reportable 05/29/21 07:02 Amy Cells Not Reportable 05/29/21 07:02 Bite Cells Not Reportable 05/29/21 07:02 Crenated Cell Not Reportable 05/29/21 07:02 Elliptocytes Not Reportable 05/29/21 07:02 Acanthocytes (Spur) Not Reportable 05/29/21 07:02 Rouleaux Not Reportable 05/29/21 07:02 Hemoglobin C Crystals Not Reportable 05/29/21 07:02 Schistocytes Not Reportable 05/29/21 07:02 Malaria parasites Not Reportable 05/29/21 07:02 Jeremiah Bodies Not Reportable 05/29/21 07:02 Hem Pathologist Commnt No 05/29/21 07:02 Sodium 134 mmol/L (137-145) L 06/02/21 10:33 Potassium 5.0 mmol/L (3.6-5.0) 06/02/21 10:33 Chloride 101.9 mmol/L (98-107) 06/02/21 10:33 Carbon Dioxide 21 mmol/L (22-30) L 06/02/21 10:33 Anion Gap 16 mmol/L 06/02/21 10:33 BUN 13 mg/dL (9-20) 06/02/21 10:33 Creatinine 1.8 mg/dL (0.8-1.3) H 06/02/21 10:33 Estimated GFR 51 ml/min 06/02/21 10:33 BUN/Creatinine Ratio 7 % 06/02/21 10:33 Glucose 88 mg/dL (75-100) 06/02/21 10:33 Calcium 8.5 mg/dL (8.4-10.2) 06/02/21 10:33 Magnesium 1.70 mg/dL (1.7-2.3) 05/30/21 04:43 Total Bilirubin 0.20 mg/dL (0.1-1.2) 05/29/21 00:26 AST 22 units/L (5-40) 05/29/21 00:26 ALT 17 units/L (7-56) 05/29/21 00:26 Alkaline Phosphatase 133 units/L (35-129) H 05/29/21 00:26 Troponin T < 0.010 ng/mL (0.00-0.029) 05/29/21 13:38 Total Protein 7.5 g/dL (6.3-8.2) 05/29/21 00:26 Albumin 3.5 g/dL (3.9-5) L 05/29/21 00:26 Albumin/Globulin Ratio 0.9 % 05/29/21 00:26 Lipase 60 units/L (13-60) 05/29/21 00:26 Ordoñez/IV: Voiding Method Toilet Active Medications - Current Medications Current Medications: Generic Name Dose Route Start Last Admin Trade Name Freq PRN Reason Stop Dose Admin Acetaminophen 650 mg 05/29/21 05:38 Acetaminophen 325 Mg Tab PO Q6H PRN Pain, Mild (1-3) Albuterol 2.5 mg 05/29/21 06:01 Albuterol 2.5 Mg/3 Ml Nebu IH Q4HRT PRN Shortness Of Breath Amlodipine Besylate 5 mg 06/02/21 10:00 06/02/21 09:21 Amlodipine 5 Mg Tab PO 5 mg QDAY EVE Administration Aspirin 81 mg 05/30/21 10:00 06/02/21 09:21 Aspirin 81 Mg Tab Chew PO 81 mg QDAY EVE Administration Atorvastatin Calcium 40 mg 05/29/21 22:00 06/01/21 23:08 Atorvastatin 40 Mg Tab PO 40 mg QHS EVE Administration Benzonatate 100 mg 05/29/21 05:40 Benzonatate 100 Mg Cap PO Q8HR PRN Cough Darunavir 800 mg 05/30/21 11:45 06/02/21 09:21 Darunavir 800 Mg Tab PO 800 mg QDAY EVE Administration Emtricitabine 200 mg 05/29/21 14:00 06/02/21 09:20 Emtricitabine 200 Mg Cap PO 200 mg QDAY EVE Administration Heparin Sodium (Porcine) 5,000 unit 05/29/21 06:00 06/02/21 06:31 Heparin 5,000 Unit/1 Ml Vial SUB-Q 5,000 unit Q8HR EVE Administration Sodium Chloride 1,000 mls @ 100 mls/hr 05/29/21 05:45 05/29/21 08:17 Nacl 0.9% 1000 Ml IV 100 mls/hr DIRECT EVE Administration Lactated Ringer's 1,000 mls @ 125 mls/hr 05/29/21 12:15 05/30/21 18:59 Lactated Ringers IV 125 mls/hr DIRECT EVE Administration Micafungin Sodium 100 mg/ 100 mls @ 100 mls/hr 05/29/21 14:00 06/01/21 15:42 Sodium Chloride IV 100 mls/hr Q24H EVE Administration Protocol Lidocaine HCl 15 ml 05/30/21 11:06 Lidocaine Viscous 2% 15 Ml Oral Liqd PO Q8HR PRN Mouth Pain Morphine Sulfate 2 mg 05/30/21 11:07 06/02/21 11:06 Morphine 4 Mg/1 Ml Inj IV 2 mg Q4H PRN Administration Chest Pain unrelieved by NTG Nitroglycerin 0.4 mg 05/29/21 05:38 Nitroglycerin 0.4 Mg Tab Subl SL Q5M PRN Chest Pain Nystatin 500,000 unit 05/30/21 14:00 06/02/21 09:21 Nystatin 500,000 Unit/5 Ml Oral Liqd PO 500,000 unit QID EVE Administration Pantoprazole Sodium 20 mg 05/29/21 10:00 06/02/21 09:21 Pantoprazole 20 Mg Tab PO 20 mg QDAY EVE Administration Ritonavir 100 mg 05/30/21 11:45 06/02/21 09:21 Ritonavir 100 Mg Tab PO 100 mg DAILY EVE Administration Sodium Chloride 10 ml 05/29/21 05:38 06/01/21 09:43 Sodium Chloride 0.9% 10 Ml Flush Syringe IV 10 ml PRN PRN Administration LINE FLUSH Tenofovir Disoproxil Fumarate 300 mg 05/29/21 14:00 06/02/21 09:20 Tenofovir 300 Mg Tab PO 300 mg QDAY EVE Administration Tramadol HCl 50 mg 05/29/21 05:38 Tramadol 50 Mg Tab PO Q6H PRN Pain, Moderate (4-6) Trimethoprim/Sulfamethoxazole 1 each 05/29/21 14:00 06/02/21 09:21 Sulfamethoxazole/Trimethoprim 800/160mg Ds Tab PO 1 each DAILY EVE Administration Protocol Nutrition/Malnutrition Assess - Dietary Evaluation Nutrition/Malnutrition Findings: Nutrition Notes Start: 06/02/21 11:57 Freq: Status: Active Protocol: Document 06/02/21 11:57 PETER (Rec: 06/02/21 12:38 PETER [id number]) Nutrition Notes Need for Assessment generated from: MST,Low BMI Initial or Follow up Assessment Current Diagnosis CKD(stage I-IV),Coronary Artery Disease,Malnutrition Other Pertinent Diagnosis Oropharyngeal candidiasis, assoc w/HIV. Current Diet Regular Diet (since D 05/29). Labs/Tests 06/02: Na 134, CO2 21, Cr 1.8. Pertinent Medications 06/02: Nutritionally unremarkable. Height 6 ft Weight 63.2 kg [place] Body Weight (kg) 80.90 BMI 18.8 Weight Status Underweight Percent of energy/protein needs met: Prescribed Regular Diet provides for energy/protein needs (2,289 Kcal/89 g) during LOS. Pt may benefit from Dietary Supplementation BID. Burn Absent Trauma Absent GI Symptoms None Food Allergy No Skin Integrity/Comment Clear, warm, dry. Current % PO Good (75-100%) Minimum of two criteria No physical signs of malnutrition #1 Nutrition Diagnosis No nutrition diagnosis at this time Comments: None information available indicates risk for malnutrition, other than the expected progression of HIV condition. Is patient on ventilator? No Is Patient Ambulatory and/or Out of Bed Yes REE-([facility]-ambulatory/OOB) [ 2066.000 [id number]] Kcal/Kg value to use for calculation 33 Approximate Energy Requirements Using 2085 kcal/Kg Calculation Used for Recommendations Kcal/kg Additional Notes Protein: 1.0-1.2 g/Kg/day; 81- 97 g/day; 324-388 Kcal/day ( from IBW). Fluids: 1.0 ml/Kcal/day, or as per MD. Nutrition Intervention Change Diet Order: Continue Regular Diet. Add Supplement/Snack (indicate name/kcal 8 fl oz Ensure Enlive BID. /protein ) Provides kCal: 700 Provides Protein (gm) 40 Goal #1 Maintain body weight within +/ -3% of current BWt during LOS. Goal #2 Reach and maintain acceptable chemistry lab values during LOS. Follow-Up By: 06/09/21 Additional Comments Continue monitoring tolerance of foods, %PO intake of meals, Hydration, and BM. - Attestation Statement I have reviewed and agreed w/ Malnutrition eval & tx plan: Yes
[2021-06-02] MEDS: MICAFUNGIN 100 MG in SODIUM CHLORIDE 0.9% 100 ML IV SCH (13:42)
[2021-06-02] MEDS ORDERED: SODIUM CHLORIDE 0.9% 500 ML 500 ML ONE (13:47)
[2021-06-03 04:12] VITALS: BP 119/84
[2021-06-03] MEDS: MORPHINE 4 MG/1 ML INJ IV PRN (05:38)
[2021-06-03] MEDS: HEPARIN 5,000 UNIT/1 ML VIAL SUB-Q SCH (05:53)
[2021-06-03 15:19] LABS: CD4/CD8 Ratio 0.06 (0.86-5.00)
[2021-06-03 15:59] LABS: HIV-1 RNA QN PCR 4.4 Log cps/mL
--- NOTE | 2021-06-03 16:55 | Discharge Summary ---
Providers - Providers Date of Admission: 05/29/21 12:04 Date of discharge: 06/03/21 Attending physician: REJI VALDES MD 05/29/21 Consult to Cardiac Rehabilitation [CONS] Routine Reason For Exam: Phase I 05/29/21 10:45 Consult to Physician [CONS] Routine Comment: Consulting Provider: IZABELA SMITH Physician Instructions: Reason For Exam: AIDS related vamsi esophagitis 06/01/21 12:54 Consult to Dietitian/Nutrition [CONS] Routine Physician Instructions: Reason For Exam: Reason for Consult: Malnutrition Primary care physician: HOUSE [employer]INTER [employer] Hospitalization Reason for admission: Chest pain Condition: Serious Hospital course: 40 YOM with history of AIDS and CKD who presented with chest and throat pain on 05/29. Initial troponin was negative and he was found to have a creatinine of 2.0. He was admitted for further management. TTE showed ejection fraction of 55- 60% with diastolic dysfunction. Chest pain was determined to be atypical in nature and as a result of thrush. He was treated with micafungin. Infectious disease was consulted. The patient left AMA on 06/03. He declined prescription for fluconazole and bactrim. Disposition: 07 LEFT AGAINST MEDICAL ADVICE Final Discharge Diagnosis (Prints w/discharge instructions): Oropharyngeal candidiasis. HIV/AIDS. Chronic Kidney Disease Stage III. Medication non- compliance Time spent for discharge: 10 minutes Core Measure Documentation - Palliative Care Palliative Care/ Comfort Measures: Not Applicable - Core Measures Any of the following diagnoses?: none Exam - Physical Exam Narrative exam: Patient left AMA, examination unable to be performed - Constitutional Vitals: Temp Pulse Resp BP Pulse Ox 99.7 F H 85 17 119/84 98 06/03/21 03:51 06/03/21 03:51 06/03/21 08:35 06/03/21 03:51 06/03/21 08:35 Plan Follow up with: HARSHIL GUZMÁN MD [Primary Care Provider] - 3-5 Days Forms: AMA Form
== END 2021-06-03 09:12 | disposition left against medical advice (07) | DRG 975 ==
LOC: ED 22:07 → 4A 05-29 05:38 → OBSVTOIN 05-29 12:04 → 4A 05-29 14:08
PROVIDERS: ADMIT Hospitalist; ATTEND Student in an Organized Health Care Education/Training Program
DX: B20 Human immunodeficiency virus [HIV] disease (principal); B37.0 Candidal stomatitis; N17.9 Acute kidney failure, unspecified; I24.9 Acute ischemic heart disease, unspecified; Z68.1 Body mass index [BMI] 19.9 or less, adult; E44.0 Moderate protein-calorie malnutrition; K21.9 Gastro-esophageal reflux disease without esophagitis; R07.89 Other chest pain; N18.9 Chronic kidney disease, unspecified; D72.819 Decreased white blood cell count, unspecified; N18.30 Chronic kidney disease, stage 3 unspecified; Z20.822 Contact with and (suspected) exposure to COVID-19; Z91.14 Patient's other noncompliance with medication regimen
CPT/HCPCS: 36415; 71045; 80048; 80053; 82024; 83690; 83735; 84484; 85007; 85025; 87536; 87901; 90686; 90732; 93005; 93306; G0378; J0610; J1170; J1644; J2248; J2270; J2405; J7030; J7120

== ENCOUNTER 2021-06-08 22:42 | Emergency (ER) | payer MEDICAID ==
[2021-06-08 23:07] VITALS: BP 135/87
[2021-06-09] MEDS ORDERED: ONDANSETRON 4 MG ODT TAB PO ONE (01:10)
[2021-06-09] MEDS ORDERED: LIDOCAINE VISCOUS 2% 15 ML ORAL LIQD PO ONE (01:10)
[2021-06-09] MEDS ORDERED: HYDROcodone/ACETAMINOPHEN 7.5-325MG TAB PO ONE (01:10)
[2021-06-09] MEDS ORDERED: PROMETHAZINE 25 MG TAB PO ONE (01:11)
--- NOTE | 2021-06-09 01:14 | Emergency Department Report ---
ED General Adult HPI - General Chief complaint: Sore Throat Stated complaint: PAIN/THRUSH IN MOUTH Source: patient Mode of arrival: Ambulatory Limitations: No Limitations - History of Present Illness Initial comments: Patient is a 40-year-old -Polish male with a history of HIV AIDS, hepatitis C, chronic renal disease who presents to the ED with complaint of acute onset painful sore throat with diffuse oral thrush S for the last 1 week, worse in the last 2 days. Patient states that he has not been able to eat anything because of worsening pain and dysphagia. Patient states that he was admitted to the hospital over 1 week ago and got IV antifungal infusion but had to leave the ED because of family emergency and therefore was not discharged home on any medications. Patient states that he has a scheduled appointment with an infectious disease physician but that will not be until after 22 June. Patient states that he is unable to sleep or eat because of worsening pain in his throat and mouth. Patient denies fever, chills, nausea, vomiting, dizziness, syncope, chest pain, shortness of breath, cough, headache, change in vision or abdominal pain, diarrhea or dizziness. MD Complaint: Oral thrush, dysphagia -: Sudden, week(s) (1) Location: mouth Radiation: non-radiation Severity scale (0 -10): 5 Quality: aching, sharp Consistency: constant Improves with: none Worsens with: eating Associated Symptoms: denies other symptoms. denies: confusion, chest pain, cough, diaphoresis, fever/chills, headaches, loss of appetite, malaise, nausea/vomiting, rash, seizure, shortness of breath, syncope, weakness Treatments Prior to Arrival: none - Related Data Home Medications Medication Instructions Recorded Confirmed Last Taken Acetaminophen [Tylenol] 500 mg PO PRN PRN 05/29/21 05/29/21 05/28/21 Aspirin EC [Halfprin EC] 81 mg PO QDAY 05/29/21 05/29/21 05/28/21 Bictegrav/Emtricit/Tenofov Ala 1 each PO QDAY 05/29/21 05/29/21 05/22/21 [Biktarvy 50-200-25 mg Tablet] Darunavir/Cobicistat (Nf) 1 each PO QDAY 05/29/21 05/29/21 05/22/21 [Prezcobix 800 mg-150 mg (Nf)] Ibuprofen [Ibu-200] 200 mg PO PRN PRN 05/29/21 05/29/21 05/28/21 Previous Rx's Medication Instructions Recorded Last Taken Type Fluconazole [Diflucan TAB] 100 mg PO QDAY #15 tablet 06/09/21 Unknown Rx Lidocaine Viscous 2% 10 ml PO Q6H PRN #150 ml 06/09/21 Unknown Rx Ondansetron [Zofran Odt] 4 mg PO Q8HR PRN #15 tab.rapdis 06/09/21 Unknown Rx traMADoL [Ultram] 50 mg PO Q6HR PRN #15 tablet 06/09/21 Unknown Rx Allergies Allergy/AdvReac Type Severity Reaction Status Date / Time latex Allergy Itching Verified 08/07/15 12:37 ED Review of Systems ROS: Stated complaint: PAIN/THRUSH IN MOUTH Other details as noted in HPI Constitutional: denies: chills, fever Eyes: denies: eye pain, eye discharge, vision change ENT: throat pain, other (Mouth pain and dysphagia). denies: ear pain Respiratory: denies: cough, shortness of breath, wheezing Cardiovascular: denies: chest pain, palpitations Endocrine: no symptoms reported Gastrointestinal: denies: abdominal pain, nausea, diarrhea Genitourinary: denies: urgency, dysuria Musculoskeletal: denies: back pain, joint swelling, arthralgia Skin: denies: rash, lesions Neurological: denies: headache, weakness, paresthesias Psychiatric: denies: anxiety, depression Hematological/Lymphatic: denies: easy bleeding, easy bruising ED Past Medical Hx - Past Medical History Hx Hypertension: No Hx CVA: No Hx Heart Attack/AMI: No Hx Congestive Heart Failure: No Hx Diabetes: No Hx Deep Vein Thrombosis: No Hx Pulmonary Embolism: No Hx GERD: Yes Hx Liver Disease: Yes (hepatitis C) 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 esophagitis. MRSA - Surgical History Hx Coronary Stent: No Hx Open Heart Surgery: No Hx Pacemaker: No Hx Internal Defibrillator: No Hx Cholecystectomy: No Hx Appendectomy: No Hx Breast Surgery: No Additional Surgical History: port to left chest- removed. pic line to left upper arm-removed. PEG tube placement- removed - Social History Smoking Status: Current Every Day Smoker - Medications Home Medications: Home Medications Medication Instructions Recorded Confirmed Last Taken Type Acetaminophen [Tylenol] 500 mg PO PRN PRN 05/29/21 05/29/21 05/28/21 History Aspirin EC [Halfprin EC] 81 mg PO QDAY 05/29/21 05/29/21 05/28/21 History Bictegrav/Emtricit/Tenofov Ala 1 each PO QDAY 05/29/21 05/29/21 05/22/21 History [Biktarvy 50-200-25 mg Tablet] Darunavir/Cobicistat (Nf) 1 each PO QDAY 05/29/21 05/29/21 05/22/21 History [Prezcobix 800 mg-150 mg (Nf)] Ibuprofen [Ibu-200] 200 mg PO PRN PRN 05/29/21 05/29/21 05/28/21 History Fluconazole [Diflucan TAB] 100 mg PO QDAY #15 tablet 06/09/21 Unknown Rx Lidocaine Viscous 2% 10 ml PO Q6H PRN #150 ml 06/09/21 Unknown Rx Ondansetron [Zofran Odt] 4 mg PO Q8HR PRN #15 tab.rapdis 06/09/21 Unknown Rx traMADoL [Ultram] 50 mg PO Q6HR PRN #15 tablet 06/09/21 Unknown Rx ED Physical Exam - General Limitations: No Limitations General appearance: alert, in no apparent distress - Head Head exam: Present: atraumatic, normocephalic, normal inspection - Eye Eye exam: Present: normal appearance, PERRL, EOMI Pupils: Present: normal accommodation - ENT ENT exam: Present: normal exam, mucous membranes moist, TM's normal bilaterally, normal external ear exam, other (Diffuse irritation in the oropharynx with thick white cottage cheese discharge) - Neck Neck exam: Present: normal inspection, full ROM. Absent: tenderness - Respiratory Respiratory exam: Present: normal lung sounds bilaterally. Absent: respiratory distress, wheezes, rales, stridor, chest wall tenderness, accessory muscle use, decreased breath sounds, other - Cardiovascular Cardiovascular Exam: Present: regular rate, normal rhythm, normal heart sounds. Absent: systolic murmur, diastolic murmur, rubs, gallop - GI/Abdominal GI/Abdominal exam: Present: soft, normal bowel sounds. Absent: distended, tenderness - Extremities Exam Extremities exam: Present: normal inspection, full ROM, normal capillary refill - Back Exam Back exam: Present: normal inspection, full ROM. Absent: tenderness, CVA tenderness (R), CVA tenderness (L), muscle spasm, paraspinal tenderness, vertebral tenderness - Neurological Exam Neurological exam: Present: alert, oriented X3, CN II-XII intact, normal gait, reflexes normal - Psychiatric Psychiatric exam: Present: normal affect, normal mood - Skin Skin exam: Present: warm, dry, intact, normal color. Absent: rash ED Course Vital Signs 06/08/21 23:06 Temperature 98.6 F Pulse Rate 74 Respiratory 18 Rate Blood Pressure 135/87 O2 Sat by Pulse 98 Oximetry ED Medical Decision Making - Medical Decision Making This is a 40-year-old -Polish male with a history of HIV AIDS, hepatitis C, chronic renal disease who presents to the ED with complaint of acute onset painful sore throat with diffuse oral thrush S for the last 1 week, worse in the last 2 days. Patient states that he has not been able to eat anything because of worsening pain and dysphagia. Patient states that he was admitted to the hospital over 1 week ago and got IV antifungal infusion but had to leave the ED because of family emergency and therefore was not discharged home on any medications. Patient states that he has a scheduled appointment wit h an infectious disease physician but that will not be until after 22 June. Patient states that he is unable to sleep or eat because of worsening pain in his throat and mouth. In the ED, patient is alert and oriented by age and is not in any distress. Patient was treated for pain in the ED and discharged home on pain medication and antifungal oral medications and was advised to maintain and keep the schedule appointment with the infectious disease physician and to continue taking his regular medications. Patient is advised return to the ED immediately if symptoms get worse. - Differential Diagnosis Pharyngitis; esophagitis; epiglottitis; oral thrush Critical care attestation.: If time is entered above; I have spent that time in minutes in the direct care of this critically ill patient, excluding procedure time. ED Disposition Clinical Impression: Esophagitis due to HIV, Candidiasis of mouth Disposition: HOME / SELF CARE / HOMELESS Is pt being admited?: No Does the pt Need Aspirin: No Condition: Stable Instructions: Oral Thrush, Adult, [id number], Opportunistic Infections Additional Instructions: Take medication with food, drink plenty of fluids and follow-up with your primary care physician in 7 to 10 days for reevaluation. Return to the ED immediately if symptoms get worse. Ensure that you follow-up with the infect ious disease physician as previously scheduled. Prescriptions: Fluconazole [Diflucan TAB] 100 mg PO QDAY #15 tablet Lidocaine Viscous 2% 10 ml PO Q6H PRN #150 ml PRN Reason: Sore Throat traMADoL [Ultram] 50 mg PO Q6HR PRN #15 tablet PRN Reason: Pain Ondansetron [Zofran Odt] 4 mg PO Q8HR PRN #15 tab.rapdis PRN Reason: Nausea Referrals: [facility] [Provider Group] - 3-5 Days Time of Disposition: 01:20 Print Language: TAMAZIGHT
[2021-06-09] MEDS ORDERED: FLUCONAZOLE 200 MG TAB PO ONE (01:52)
== END 2021-06-09 03:19 | disposition home or self-care (01) ==
LOC: ED 22:42
DX: B37.81 Candidal esophagitis (principal); B37.0 Candidal stomatitis; Z91.040 Latex allergy status; Z86.19 Personal history of other infectious and parasitic diseases; B20 Human immunodeficiency virus [HIV] disease; F17.200 Nicotine dependence, unspecified, uncomplicated
CPT/HCPCS: 99281; Q0169; Q0162

== ENCOUNTER 2021-09-18 14:17 | Emergency (ER) | payer MEDICAID ==
[2021-09-18 14:21] VITALS: BP 157/87
--- NOTE | 2021-09-18 14:32 | Emergency Department Report ---
ED Chest Pain HPI - General Chief Complaint: Chest Pain Stated Complaint: chest discomfort on exertion this am PUI?: No Time Seen by Provider: 09/18/21 14:24 Source: patient, EMS Mode of arrival: Stretcher Limitations: No Limitations - History of Present Illness Initial Comments: CC: chest pain and thrush HPI: This is a 40 yo male with hx of AIDS, oral/esophageal candidiasis, CKD, GERD, hepatitis who presents with chest pain and oral pain. He arrived via EMS. ID physician Dr. Ian Kwon. He is compliant with ART. He recently completed 15 day course of amphotericin. Mr. Bernstein was admitted 06/03/2021 for evaluation of chest pain and management of thrush. Echocardiogram obtained during that admission revealed normal systolic function, EF 55-60%. Chest pain attributed to candidal esophagitis; MD Complaint: chest pain -: Gradual, days(s) (1 day) Onset: during exertion Severity: moderate Quality: tightness Consistency: intermittent Improves With: rest Worsens With: exertion Treatments Prior to Arrival: other (EMS transportation) - Related Data Home Medications Medication Instructions Recorded Confirmed Last Taken Acetaminophen [Tylenol] 500 mg PO PRN PRN 05/29/21 05/29/21 05/28/21 Aspirin EC [Halfprin EC] 81 mg PO QDAY 05/29/21 05/29/21 05/28/21 Bictegrav/Emtricit/Tenofov Ala 1 each PO QDAY 05/29/21 05/29/21 05/22/21 [Biktarvy 50-200-25 mg Tablet] Darunavir/Cobicistat (Nf) 1 each PO QDAY 05/29/21 05/29/21 05/22/21 [Prezcobix 800 mg-150 mg (Nf)] Ibuprofen [Ibu-200] 200 mg PO PRN PRN 05/29/21 05/29/21 05/28/21 Previous Rx's Medication Instructions Recorded Last Taken Type Fluconazole [Diflucan TAB] 100 mg PO QDAY #15 tablet 06/09/21 Unknown Rx Lidocaine Viscous 2% 10 ml PO Q6H PRN #150 ml 06/09/21 Unknown Rx Ondansetron [Zofran Odt] 4 mg PO Q8HR PRN #15 tab.rapdis 06/09/21 Unknown Rx traMADoL [Ultram] 50 mg PO Q6HR PRN #15 tablet 06/09/21 Unknown Rx Allergies Allergy/AdvReac Type Severity Reaction Status Date / Time latex Allergy Itching Verified 08/07/15 12:37 Heart Score - HEART Score History: Slightly suspicious EKG: Normal Age: < 45 Risk factors: 1-2 risk factors Troponin: < normal limit HEART Score: 1 - EKG Read Time Time EKG Completed: 00:00 EKG Read Time: 00:00 ED Review of Systems ROS: Stated complaint: chest discomfort on exertion this am Other details as noted in HPI Comment: All other systems reviewed and negative Constitutional: denies: chills, fever, malaise Respiratory: denies: cough, shortness of breath Cardiovascular: chest pain Gastrointestinal: denies: abdominal pain, nausea, vomiting ED Past Medical Hx - Past Medical History Previous Medical History?: Yes Hx Hypertension: No Hx CVA: No Hx Heart Attack/AMI: No Hx Congestive Heart Failure: No Hx Diabetes: No Hx Deep Vein Thrombosis: No Hx Pulmonary Embolism: No Hx GERD: Yes Hx Liver Disease: Yes (hepatitis C) 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 esophagitis. MRSA - Surgical History Past Surgical History?: Yes Hx Coronary Stent: No Hx Open Heart Surgery: No Hx Pacemaker: No Hx Internal Defibrillator: No Hx Cholecystectomy: No Hx Appendectomy: No Hx Breast Surgery: No Additional Surgical History: port to left chest- removed. pic line to left upper arm-removed. PEG tube placement- removed - Social History Smoking Status: Current Every Day Smoker Substance Use Type: None - Medications Home Medications: Home Medications Medication Instructions Recorded Confirmed Last Taken Type Acetaminophen [Tylenol] 500 mg PO PRN PRN 05/29/21 05/29/21 05/28/21 History Aspirin EC [Halfprin EC] 81 mg PO QDAY 05/29/21 05/29/21 05/28/21 History Bictegrav/Emtricit/Tenofov Ala 1 each PO QDAY 05/29/21 05/29/21 05/22/21 History [Biktarvy 50-200-25 mg Tablet] Darunavir/Cobicistat (Nf) 1 each PO QDAY 05/29/21 05/29/21 05/22/21 History [Prezcobix 800 mg-150 mg (Nf)] Ibuprofen [Ibu-200] 200 mg PO PRN PRN 05/29/21 05/29/21 05/28/21 History Fluconazole [Diflucan TAB] 100 mg PO QDAY #15 tablet 06/09/21 Unknown Rx Lidocaine Viscous 2% 10 ml PO Q6H PRN #150 ml 06/09/21 Unknown Rx Ondansetron [Zofran Odt] 4 mg PO Q8HR PRN #15 tab.rapdis 06/09/21 Unknown Rx traMADoL [Ultram] 50 mg PO Q6HR PRN #15 tablet 06/09/21 Unknown Rx ED Physical Exam - General Limitations: No Limitations General appearance: alert, in no apparent distress - Head Head exam: Present: atraumatic, normocephalic - Eye Eye exam: Present: normal appearance - ENT ENT exam: Present: mucous membranes moist, other (sparse white patches on roof of mouth and cheeks) - Neck Neck exam: Present: normal inspection - Respiratory Respiratory exam: Present: normal lung sounds bilaterally. Absent: respiratory distress, wheezes, rales, rhonchi - Cardiovascular Cardiovascular Exam: Present: regular rate, normal rhythm, normal heart sounds. Absent: systolic murmur, diastolic murmur, rubs, gallop - GI/Abdominal GI/Abdominal exam: Present: soft, normal bowel sounds. Absent: distended, tenderness, guarding, rebound - Rectal Rectal exam: Present: deferred - Extremities Exam Extremities exam: Present: normal inspection - Neurological Exam Neurological exam: Present: alert, oriented X3 - Psychiatric Psychiatric exam: Present: normal affect, normal mood - Skin Skin exam: Present: warm, dry, intact, normal color. Absent: rash ED Course Vital Signs 09/18/21 14:19 Pulse Rate 62 Respiratory 17 Rate Blood Pressure 157/87 [Left] O2 Sat by Pulse 100 Oximetry ED Medical Decision Making - Lab Data Result diagrams: 09/18/21 15:14 09/18/21 15:14 - Medical Decision Making Patient eloped without further treatment. EKG was not obtained. Patient did not have a life-threatening condition according to my medical opinion. He has had recurrent chest pain due to candidal esophagitis. Patient has negative troponin. Chemistry reflects known CKD Critical care attestation.: If time is entered above; I have spent that time in minutes in the direct care of this critically ill patient, excluding procedure time. ED Disposition Clinical Impression: Esophageal candidiasis Disposition: LEFT AWOL/ELOPED Is pt being admited?: No Does the pt Need Aspirin: No Condition: Stable
[2021-09-18 15:40] LABS: Hematocrit 35.4 % (35.5-45.6); Hemoglobin 11.3 gm/dl (11.8-15.2); Mean Corpuscular HGB Conc 32 % (32-34); Mean Corpuscular Volume 95 fl (84-94); Platelet Count 224 K/mm3 (140-440); Red Blood Count 3.73 M/mm3 (3.65-5.03); Red Cell Distribution Width 16.3 % (13.2-15.2)
[2021-09-18 16:37] LABS: BUN/Creatinine Ratio 7; Blood Urea Nitrogen 15 mg/dL (9-20); Calcium 8.6 mg/dL (8.4-10.2); Hemolysis Index 1
[2021-09-18 17:14] LABS: Basophils % (Manual) 0 % (0.0-1.8); Eosinophils % (Manual) 0 % (0.0-4.3); Total Cells Counted 100
[2021-09-18 17:15] LABS: Anisocytosis 1+; Hypochromasia Few; Platelet Estimate Consistent w Auto
== END 2021-09-18 23:02 | disposition left against medical advice (07) ==
LOC: ED 14:17
DX: B37.81 Candidal esophagitis (principal); K21.9 Gastro-esophageal reflux disease without esophagitis; F17.200 Nicotine dependence, unspecified, uncomplicated; Z91.040 Latex allergy status; Z79.899 Other long term (current) drug therapy; Z79.82 Long term (current) use of aspirin
CPT/HCPCS: 36415; 80048; 84484; 85007; 85025; 99283

== ENCOUNTER 2022-02-14 13:55 | Emergency (ER) | payer MEDICAID ==
[2022-02-14 15:26] VITALS: BP 143/92
--- NOTE | 2022-02-14 15:38 | Emergency Department Report ---
ED Recheck HPI - General Chief Complaint: Recheck/Abnormal Lab/Rx Stated Complaint: SEIZURES AND BODY PAIN Time Seen by Provider: 02/14/22 15:32 Source: patient Mode of arrival: Ambulatory Limitations: No Limitations - History of Present Illness Initial Comments: 41-year-old male past medical history HIV/AIDS, renal disease, hep C reports to the ER for medication refill of his gabapentin. Patient reports he is a patient of the [facility] however his appointment was moved from February to early March. Patient unable to get to the clinic this past week for early possible appointment due to transportation. Was informed to come to his local ER for medication refill. Patient reports no acute symptoms at this time. Patient reports he takes gabapentin for his seizures. - Related Data Home Medications Medication Instructions Recorded Confirmed Last Taken Acetaminophen [Tylenol] 500 mg PO PRN PRN 05/29/21 05/29/21 05/28/21 Aspirin EC [Halfprin EC] 81 mg PO QDAY 05/29/21 05/29/21 05/28/21 Bictegrav/Emtricit/Tenofov Ala 1 each PO QDAY 05/29/21 05/29/21 05/22/21 [Biktarvy 50-200-25 mg Tablet] Darunavir/Cobicistat (Nf) 1 each PO QDAY 05/29/21 05/29/21 05/22/21 [Prezcobix 800 mg-150 mg (Nf)] Ibuprofen [Ibu-200] 200 mg PO PRN PRN 05/29/21 05/29/21 05/28/21 Previous Rx's Medication Instructions Recorded Last Taken Type Fluconazole [Diflucan TAB] 100 mg PO QDAY #15 tablet 06/09/21 Unknown Rx Lidocaine Viscous 2% 10 ml PO Q6H PRN #150 ml 06/09/21 Unknown Rx Ondansetron [Zofran Odt] 4 mg PO Q8HR PRN #15 tab.rapdis 06/09/21 Unknown Rx traMADoL [Ultram] 50 mg PO Q6HR PRN #15 tablet 06/09/21 Unknown Rx Gabapentin 300 mg PO BID 30 Days #60 cap 02/14/22 Unknown Rx Allergies Allergy/AdvReac Type Severity Reaction Status Date / Time latex Allergy Itching Verified 08/07/15 12:37 ED Review of Systems ROS: Stated complaint: SEIZURES AND BODY PAIN Other details as noted in HPI Comment: All other systems reviewed and negative ED Past Medical Hx - Past Medical History Previous Medical History?: Yes Hx Hypertension: No Hx CVA: No Hx Heart Attack/AMI: No Hx Congestive Heart Failure: No Hx Diabetes: No Hx Deep Vein Thrombosis: No Hx Pulmonary Embolism: No Hx GERD: Yes Hx Liver Disease: Yes (hepatitis C) 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 esophagitis. MRSA - Surgical History Hx Coronary Stent: No Hx Open Heart Surgery: No Hx Pacemaker: No Hx Internal Defibrillator: No Hx Cholecystectomy: No Hx Appendectomy: No Hx Breast Surgery: No Additional Surgical History: port to left chest- removed. pic line to left upper arm-removed. PEG tube placement- removed - Social History Smoking Status: Current Every Day Smoker Substance Use Type: None - Medications Home Medications: Home Medications Medication Instructions Recorded Confirmed Last Taken Type Acetaminophen [Tylenol] 500 mg PO PRN PRN 05/29/21 05/29/21 05/28/21 History Aspirin EC [Halfprin EC] 81 mg PO QDAY 05/29/21 05/29/21 05/28/21 History Bictegrav/Emtricit/Tenofov Ala 1 each PO QDAY 05/29/21 05/29/21 05/22/21 History [Biktarvy 50-200-25 mg Tablet] Darunavir/Cobicistat (Nf) 1 each PO QDAY 05/29/21 05/29/21 05/22/21 History [Prezcobix 800 mg-150 mg (Nf)] Ibuprofen [Ibu-200] 200 mg PO PRN PRN 05/29/21 05/29/21 05/28/21 History Fluconazole [Diflucan TAB] 100 mg PO QDAY #15 tablet 06/09/21 Unknown Rx Lidocaine Viscous 2% 10 ml PO Q6H PRN #150 ml 06/09/21 Unknown Rx Ondansetron [Zofran Odt] 4 mg PO Q8HR PRN #15 tab.rapdis 06/09/21 Unknown Rx traMADoL [Ultram] 50 mg PO Q6HR PRN #15 tablet 06/09/21 Unknown Rx Gabapentin 300 mg PO BID 30 Days #60 cap 02/14/22 Unknown Rx ED Physical Exam - General Limitations: No Limitations General appearance: alert, in no apparent distress - Head Head exam: Present: atraumatic, normocephalic - Eye Eye exam: Present: normal appearance - ENT ENT exam: Present: mucous membranes moist - Neck Neck exam: Present: normal inspection - Respiratory Respiratory exam: Present: normal lung sounds bilaterally. Absent: respiratory distress - Cardiovascular Cardiovascular Exam: Present: regular rate, normal rhythm. Absent: systolic murmur, diastolic murmur, rubs, gallop - GI/Abdominal GI/Abdominal exam: Present: soft, normal bowel sounds - Rectal Rectal exam: Present: deferred - Extremities Exam Extremities exam: Present: normal inspection - Back Exam Back exam: Present: normal inspection - Neurological Exam Neurological exam: Present: alert, oriented X3 - Psychiatric Psychiatric exam: Present: normal affect, normal mood - Skin Skin exam: Present: warm, dry, intact, normal color. Absent: rash ED Course Vital Signs 02/14/22 15:23 Temperature 98 F Pulse Rate 68 Respiratory 16 Rate Blood Pressure 143/92 [Left] O2 Sat by Pulse 100 Oximetry ED Recheck MDM - Medical Decision Making 41-year-old male reports to the ER for medication refill of his gabapentin 300 mg twice daily. Patient is a part of the [facility] system patient's appointment for this plan has been moved to . Patient was given opportunity for a quick for an appointment this past week however patient reports transportation concerns to get to [place] for appointment. Appointment was moved to March. . Patient reports no acute symptoms. Patient stable for discharge home. Patient agrees with plan of care and verbalizes understanding. Critical care attestation.: If time is entered above; I have spent that time in minutes in the direct care of this critically ill patient, excluding procedure time. ED Disposition Clinical Impression: Medication refill, Seizure Disposition: HOME / SELF CARE / HOMELESS Is pt being admited?: No Condition: Stable Instructions: Epilepsy, [id number], Seizure, Adult, [id number] Prescriptions: Gabapentin 300 mg PO BID 30 Days #60 cap Time of Disposition: 15:39
== END 2022-02-14 16:10 | disposition home or self-care (01) ==
LOC: ED 13:55
DX: R56.9 Unspecified convulsions (principal); Z76.0 Encounter for issue of repeat prescription; F17.200 Nicotine dependence, unspecified, uncomplicated; Z91.040 Latex allergy status
CPT/HCPCS: 99282